=== PATIENT | female | born 1950 | race Caucasian/White ===

== ENCOUNTER 2017-07-29 16:31 | Outpatient (CLI) ==
[2015-11-26 18:08] VITALS: BMI 49.1
--- NOTE | 2017-07-29 16:54 | DI ---
EXAM: Chest two view, frontal and lateral views. HISTORY: Chronic obstructive pulmonary disease. COMPARISON: 11/26/2015. FINDINGS: The heart size is normal. Atherosclerotic calcifications noted in a tortuous thoracic ao rta There is no pulmonary vascular congestion. Probable right lower lobe calcified granuloma, guerrero e from prior study. Thin curvilinear opacities seen in both lung bases. Otherwise, the lungs are c lear. No pleural effusion or pneumothorax is seen. No acute osseous abnormality identified. IMPRESSION: Mild bibasilar subsegmental atelectasis or scarring.
== END 2017-07-29 16:32 | disposition home or self-care (01) ==
LOC: RAD 16:31
PROVIDERS: ATTEND Internal Medicine Pulmonary Disease
DX: J44.9 Chronic obstructive pulmonary disease, unspecified (principal)

== ENCOUNTER 2017-12-28 06:30 | Emergency (ER) ==
[2017-12-28] MEDS ORDERED: XOPENEX 1.25 MG NEB STA (06:31)
[2017-12-28] MEDS ORDERED: DUONEB NEB STA (06:31)
[2017-12-28] MEDS ORDERED: VANCOMYCIN 1,000 MG in SODIUM CHLORIDE 200 ML IV STA (06:32)
[2017-12-28] MEDS ORDERED: SODIUM CHLORIDE 1,000 ML IV STA (06:32)
[2017-12-28] MEDS ORDERED: ZOSYN 3.375 GM 3.375 GM in SODIUM CHLORIDE 50 ML IV STA (06:33)
[2017-12-28] MEDS ORDERED: TYLENOL PO STA (06:33)
[2017-12-28 06:37] VITALS: BMI 44.1
[2017-12-28] MEDS ORDERED: ZOFRAN 4 MG/2 ML IVP STA (06:37)
--- NOTE | 2017-12-28 06:39 | ED.PDOC ---
General Stated Complaint: luiz got fever, cough and coughing up blood Time Seen by Physician: 06:35 Mode of Arrival: Ambulance Information Source: Patient Exam Limitations: No limitations Nursing and Triage Documentation Reviewed and Agree: Yes Reviewed sepsis parameters & appropriate labs ordered?: Yes System Inflammatory Response Syndrome: Temp 101F or Greater, Pulse >90 BPM, Resp >20/Minute <LUL MASTERSON - Last Filed: 12/28/17 06:49> <MACEY IRAHETA - Last Filed: 12/28/17 07:42> ED Provider: Dr. MACEY IRAHETA Chief Complaint: Shortness of Air Primary Care Provider: LUL YOO Sepsis Protocol: For patient's 13 years and over: Temp is 96.8 and below OR 101 and greater Pulse >90 BPM Resp >20/minute Acutely Altered Mental Status Are patient's symptoms suggestive of a new infection, such as: -Pneumonia -Skin, Soft Tissue -Endocarditis -UTI -Bone, Joint Infection -Implantable Device -Acute Abdominal Infection -Wound Infection -Meningitis -Blood Stream Catheter Infection -Unknown Respiratory Complaint Exam - Shortness of Air Complaint/Exam Onset/Duration: 2 days Symptoms Are: Still present Timing: Intermittent Initial Severity: Mild Current Severity: Moderate Character: Reports: Dyspnea at rest Aggravating: Reports: URI Alleviating: Reports: Bronchodilators Associated Signs and Symptoms: Reports: Cough, Fever, Chills, Labored breathing. Denies: Wheezing, Chest pain with cough, Chest pain, Diaphoresis, Calf pain, Calf swelling, Edema, Rapid breathing, Decreased intake History of Healthcare-Acquired Pneumonia: No Home Oxygen Use: Yes Recent Stress Test: No Recent Echo/LV Function: No Respiratory Distress: Moderate Stridor Present: No Tracheal Deviation: No Subcutaneous Emphysema: No Accessory Muscle Use: Yes Diminished Breath Sounds: Yes Prolonged Expiratory Phase: No Unable to Speak Full Sentences: Yes Fatigue: No Leg Swelling: No Santa's Sign Present: No Grunting Respirations: No Kussmaul Respirations: No Differential Diagnoses: Pulmonary Edema, COPD Exacerbation, Pneumonia, URI Quality Indicator For Non-Traumatic Chest Pain/Syncope: EKG Performed <LUL MASTERSON - Last Filed: 12/28/17 06:49> Review of Systems - Review Of Systems Constitutional: Reports: Chills, Fever, Weakness, Loss of appetite Eyes: Reports: No symptoms Ears, Nose, Mouth, Throat: Reports: No symptoms Respiratory: Reports: Cough, Short of air Cardiac: Reports: No symptoms GI: Reports: No symptoms : Reports: No symptoms Musculoskeletal: Reports: No symptoms Skin: Reports: No symptoms Neurological: Reports: No symptoms Endocrine: Reports: No symptoms Hematologic/Lymphatic: Reports: No symptoms All Other Systems: Reviewed and Negative <ZELALEMLUL - Last Filed: 12/28/17 06:49> Past Medical History - Past Medical History Previously Healthy: No Endocrine: Reports: None Cardiovascular: Reports: None Respiratory: Reports: None Hematological: Reports: None Gastrointestinal: Reports: GERD Genitourinary: Reports: None Neuro/Psych: Reports: Anxiety, Depression Musculoskeletal: Reports: Arthritis, Back Pain, Joint Pain Cancer: Reports: None Last Menstrual Period: UNKNOWN Other Pertinent Past Medical History: Chronic back pain - Surgical History General Surgical History: Reports: Appendectomy, Cholecystectomy, Other (DNC) - Family History Family History: Reports: None - Social History Smoking Status: Former smoker Hx Substance Use: No Alcohol Screening: None Lives: With family - Immunizations Tetanus Shot up to Date: (UNKNOWN) <LUL MASTERSON - Last Filed: 12/28/17 06:49> Physical Exam - Physical Exam Appearance: Well-appearing, No pain distress, Well-nourished Ill-appearing: Moderate Eyes: KAYLYN, EOMI, Conjunctiva clear ENT: Ears normal, Nose normal, Oropharynx normal Neck: Supple Respiratory: Crackles, Rhonchi, Wheezes Cardiovascular: Tachycardia GI/: Soft Musculoskeletal: Normal strength Skin: Warm, Dry, Normal color Neurological: Sensation intact, Motor intact, Reflexes intact, Cranial nerves intact, Alert, Oriented Psychiatric: Affect appropriate, Mood appropriate <LUL MASTERSNO - Last Filed: 12/28/17 06:49> Procedures - IV/Art Line Insertion Location: right EJ BY SHAJI FIRST ATTEMPT NUMBER [id number] PLACED AND RN CHECKED FUNCTION Type of Line: External Jugular Number of Attempts: 1 Blood Return Positive: Yes Invasive Line/IV Flushes Without Difficulty: Yes <MACEY IRAHETA - Last Filed: 12/28/17 07:42> Re-Evaluation - Re-Evaluation Time of Re-Evaluation: 07:00 Status: Unchanged (intubated by anesthsia prior to my arrival hypotensive intubated ) Vital Signs Stable: No Appearance: Other (intubated) Lungs: Other (breath sounds diminshed markedlt left side right lung clear left lung ronchi) Skin: Warm and Dry Neuro: Other (intubated sedated and paralyzed) CV: RRR <MACEY IRAHETA - Last Filed: 12/28/17 07:42> Physician Notification - Case Discussed Physician Notified: dr iraheta Time of Notification: 07:00 <LUL MASTERSON - Last Filed: 12/28/17 06:49> Critical Care Note - Critical Care Note Total Time (mins): 30 <LUL MASTERSON - Last Filed: 12/28/17 06:49> Course - Course Hematology/Chemistry: 12/28/17 06:50 12/28/17 06:50 <MACEY IRAHETA - Last Filed: 12/28/17 07:42> - Course Orders, Labs, Meds: Lab Review 12/28/17 12/28/17 12/28/17 06:35 06:50 06:50 WBC 23.75 H RBC 4.80 Hgb 15.2 Hct 46.6 MCV 97.1 MCH 31.7 H MCHC 32.6 RDW Coeff of Romain 12.8 Plt Count 177 Immature Gran % (Auto) 1.1 Neut % (Auto) 89.1 Lymph % (Auto) 3.2 L [place] % (Auto) 6.4 Eos % (Auto) 0.0 Baso % (Auto) 0.2 Immature Gran # (Auto) 0.3 Neut # 21.2 H Lymph # 0.8 [place] # 1.5 Eos # 0.0 Baso # 0.1 Puncture Site R rad O2 Saturation 46.0 L ABG pH 7.350 ABG pCO2 59.7 H ABG pO2 27.0 L* ABG HCO3 33.0 H ABG Total CO2 35 H ABG Base Excess 7 H Wenceslao Test + O2 Delivery Device Oxygen Liter Flow FiO2 % 21.0 Sodium 139 Potassium 3.2 L Chloride 98 Carbon Dioxide 32 H Anion Gap 12.2 BUN 17 Creatinine 0.63 Estimated GFR (MDRD) 95.00 BUN/Creatinine Ratio 26.98 Glucose 111 Lactic Acid Calcium 9.1 Total Bilirubin 1.0 AST 19 ALT 15 Alkaline Phosphatase 80 Total Protein 6.4 Albumin 2.7 L Globulin 3.7 Albumin/Globulin Ratio 0.73 Procalcitonin Influenza A (Rapid) Influenza B (Rapid) 12/28/17 12/28/17 12/28/17 06:50 06:50 06:50 WBC RBC Hgb Hct MCV MCH MCHC RDW Coeff of Romain Plt Count Immature Gran % (Auto) Neut % (Auto) Lymph % (Auto) [place] % (Auto) Eos % (Auto) Baso % (Auto) Immature Gran # (Auto) Neut # Lymph # [place] # Eos # Baso # Puncture Site O2 Saturation ABG pH ABG pCO2 ABG pO2 ABG HCO3 ABG Total CO2 ABG Base Excess Wenceslao Test O2 Delivery Device Oxygen Liter Flow FiO2 % Sodium Potassium Chloride Carbon Dioxide Anion Gap BUN Creatinine Estimated GFR (MDRD) BUN/Creatinine Ratio Glucose Lactic Acid 7.9 Calcium Total Bilirubin AST ALT Alkaline Phosphatase Total Protein Albumin Globulin Albumin/Globulin Ratio Procalcitonin 1.35 Influenza A (Rapid) Positive by naat H Influenza B (Rapid) Negative by naat 12/28/17 06:55 WBC RBC Hgb Hct MCV MCH MCHC RDW Coeff of Romain Plt Count Immature Gran % (Auto) Neut % (Auto) Lymph % (Auto) [place] % (Auto) Eos % (Auto) Baso % (Auto) Immature Gran # (Auto) Neut # Lymph # [place] # Eos # Baso # Puncture Site L brach O2 Saturation 96.0 ABG pH 7.429 ABG pCO2 49.2 H ABG pO2 84.0 L ABG HCO3 32.6 H ABG Total CO2 34 H ABG Base Excess 8 H Wences[place]o Test + O2 Delivery Device Nrb Oxygen Liter Flow 15.00 FiO2 % 100.0 Sodium Potassium Chloride Carbon Dioxide Anion Gap BUN Creatinine Estimated GFR (MDRD) BUN/Creatinine Ratio Glucose Lactic Acid Calcium Total Bilirubin AST ALT Alkaline Phosphatase Total Protein Albumin Globulin Albumin/Globulin Ratio Procalcitonin Influenza A (Rapid) Influenza B (Rapid) Orders Category Date Time Status ABG DRAW REQUEST Stat CARDIO 12/28/17 06:30 Ordered ABG DRAW REQUEST Stat CARDIO 12/28/17 07:01 Ordered EKG-(ED ONLY) Stat CARDIO 12/28/17 06:30 Ordered NEBULIZER TREATMENT Stat CARDIO 12/28/17 06:32 Ordered TRANSFER TO OUTSIDE FACILITY .TO [facility] 12/28/17 06:50 Active ([place]) WRITE TRANSFER/SBAR NOTE [facility] 12/28/17 06:50 Completed DISCHARGE ASSESSMENT ONCE DISCHARGE 12/28/17 06:50 Active WRITE DISCHARGE NOTE ONCE DISCHARGE 12/28/17 06:50 Completed Nursing Admin [ED DIESEL TRUCK DRIVER APPLIED] .ONCE EMERGENCY 12/28/17 06:31 Active IV [ED IV/MEDIPORT/POWERPORT] .ONCE EMERGENCY 12/28/17 06:32 Active ABG Stat LAB 12/28/17 06:35 Completed ARTERIAL BLOOD GAS [ABG] Stat LAB 12/28/17 06:55 Completed BLOOD CULTURE (ED ONLY) Stat LAB 12/28/17 06:50 Received CBC W/ AUTO DIFF Stat LAB 12/28/17 06:50 Completed COMPREHENSIVE METABOLIC PANEL Stat LAB 12/28/17 06:50 Completed FLU A/B MOLECULAR Stat LAB 12/28/17 06:50 Completed LACTIC ACID Stat LAB 12/28/17 06:50 Completed MOLECULAR GROUP A STREP Stat LAB 12/28/17 06:50 Completed PROCALCITONIN Stat LAB 12/28/17 06:50 Completed 0.9 % Sodium Chloride [Saline Flush] MEDS 12/28/17 06:32 Active 1 syr IVF PRN PRN Acetaminophen [Tylenol] MEDS 12/28/17 06:33 Discontinued 650 mg PO ONCE STA Fentanyl Vial [Sublimaze] MEDS 12/28/17 06:55 Discontinued 100 mcg .ROUTE .STK-MED ONE Ipratropium/Albuterol Neb [Duoneb] MEDS 12/28/17 06:31 Discontinued 1 vial NEB ONCE STA Levalbuterol HCl [Xopenex 1.25 mg] MEDS 12/28/17 06:31 Discontinued 1 vial NEB ONCE STA Midazolam HCl Inj [Versed] MEDS 12/28/17 06:54 Discontinued 10 mg .ROUTE .STK-MED ONE Ondansetron HCl/Pf [Zofran 4 mg/2 ml] MEDS 12/28/17 06:37 Discontinued 4 mg IVP ONCE STA Phenylephrine Inj [Phenylephrine] MEDS 12/28/17 07:07 Discontinued 10,000 mcg .ROUTE .STK-MED ONE Piperacillin Sodium/Tazobactam [Zosyn 3.375 gm] 3.375 MEDS 12/28/17 06:33 Discontinued gm 0.9 % Sodium Chloride [Sodium Chloride] 50 ml IV ONCE Sodium Chloride 0.9% [Sodium Chloride] 1,000 ml MEDS 12/28/17 06:32 Active IV 100 mls/hr Sodium Chloride 0.9% [Sodium Chloride] 500 ml MEDS 12/28/17 07:36 Active IV 500 mls/hr Succinylcholine Chloride [Anectine] MEDS 12/28/17 06:54 Discontinued 20 mg .ROUTE .STK-MED ONE Vancomycin HCl [Vancomycin] 1,000 mg MEDS 12/28/17 06:32 Active 0.9 % Sodium Chloride [Sodium Chloride] 200 ml IV ONCE Vecuronium [place] [Norcuron] MEDS 12/28/17 06:57 Discontinued 10 mg .ROUTE .STK-MED ONE CHEST, 1V AP ONLY Stat RADS 12/28/17 07:23 Ordered Medications Generic Name Dose Route Start Last Admin Trade Name Freq PRN Reason Stop Dose Admin Sodium Chloride 1,000 mls @ 100 mls/hr 12/28/17 06:32 12/28/17 07:22 Sodium Chloride IV 12/28/17 16:31 100 mls/hr .Q10H STA Administration Vancomycin HCl 1,000 mg/ 200 mls @ 100 mls/hr 12/28/17 06:32 Sodium Chloride IV 12/28/17 08:31 ONCE STA Sodium Chloride 500 mls @ 500 mls/hr 12/28/17 07:36 Sodium Chloride IV 12/28/17 08:35 .Q1H STA Sodium Chloride 1 syr 12/28/17 06:32 Saline Flush IVF PRN PRN To flush IV Discontinued Medications Generic Name Dose Route Start Last Admin Trade Name Freq PRN Reason Stop Dose Admin Acetaminophen 650 mg 12/28/17 06:33 Tylenol PO 12/28/17 06:34 ONCE STA Albuterol/Ipratropium 1 vial 12/28/17 06:31 Duoneb NEB 12/28/17 06:32 ONCE STA Piperacillin Sod/Tazobactam 50 mls @ 50 mls/hr 12/28/17 06:33 12/28/17 07:22 Sod 3.375 gm/ Sodium Chloride IV 12/28/17 07:32 50 mls/hr ONCE STA Administration Levalbuterol HCl 1 vial 12/28/17 06:31 Xopenex 1.25 Mg NEB 12/28/17 06:32 ONCE STA Ondansetron HCl 4 mg 12/28/17 06:37 Zofran 4 Mg/2 Ml IVP 12/28/17 06:38 ONCE STA Vital Signs: Temp Pulse Resp BP Pulse Ox 12/28/17 07:20 18 12/28/17 06:31 102.2 F H 127 H 28 H 111/70 72 L Departure - Departure Time of Disposition: 06:49 Pt referred to PMD for follow-up: Yes IPMP verified?: No Transfer Form Completed: Yes Disposition Discussed With: Patient, Family <LUL MASTERSON - Last Filed: 12/28/17 06:49> - Departure Pt referred to PMD for follow-up: Yes IPMP verified?: No Transfer Form Completed: Yes Disposition Discussed With: Patient, Family <ERINLUPEMACEY - Last Filed: 12/28/17 07:42> - Departure Disposition: TSF SHORT-TRM HOSP Discharge Problem: Acute respiratory failure Qualifiers: Respiratory failure complication: hypoxia Qualified Code(s): J96.01 - Acute respiratory failure with hypoxia Instructions: Endotracheal Tube (GEN) Condition: Poor Allergies/Adverse Reactions: Allergies ibuprofen [From Advil] Adverse Reaction (Verified 11/26/15 18:19) oxycodone HCl [From OxyContin] Adverse Reaction (Verified 11/26/15 18:19) Home Medications: Ambulatory Orders Albuterol Sulfate [Proair Hfa] 2 puff IH Q6H PRN 11/08/13 Ascorbate Calcium [Vitamin C] 500 mg PO DAILY 11/08/13 Aspirin [Aspirin EC] 81 mg PO DAILYWM 11/08/13 Atorvastatin Calcium [Lipitor] 10 mg PO DAILY 11/08/13 Bupropion HCl 75 mg PO BID 11/08/13 Cyanocobalamin (Vitamin B-12) [Vitamin B-12] 500 mcg PO DAILY 11/08/13 Diltiazem HCl 60 mg PO TID 11/08/13 Esomeprazole Magnesium [Nexium] 40 mg PO DAILY 11/08/13 Fluticasone/Salmeterol 250/50 [Advair 250-50 Diskus] 1 puff INH BID 11/08/13 Guaifenesin [Mucinex] 600 mg PO BID 11/08/13 Vitamin E 400 unit PO DAILY 11/08/13 Naproxen Sodium [Aleve] 220 mg PO Q12H PRN 05/19/15
[2017-12-28] MEDS ORDERED: VERSED IVP STA (06:50)
[2017-12-28] MEDS ORDERED: SUBLIMAZE IVP STA (06:50)
[2017-12-28] MEDS ORDERED: PHENYLEPHRINE IVP STA (06:50)
[2017-12-28] MEDS ORDERED: ANECTINE ONE (06:54)
[2017-12-28] MEDS ORDERED: VERSED ONE (06:54)
[2017-12-28] MEDS ORDERED: SUBLIMAZE ONE (06:55)
[2017-12-28] MEDS ORDERED: NORCURON ONE (06:57)
[2017-12-28] MEDS ORDERED: PHENYLEPHRINE ONE (07:07)
--- NOTE | 2017-12-28 07:20 | ED.PDOC ---
Procedures - Intubation Medications: Yes: Norcuron, Succinylcholine, Versed, Propofol Type of Tube Used: Endotracheal Cricoid Pressure Used: No Tube Alberto Used: Yes Position of Tube at Lip: 22 Number of Attempts: 1 Suction Used: No Glidescope Used: No CO2 Detector Used: Yes (positive) Lung Sounds Equal Bilaterally: Yes Intubation Complications: Present: No complications Tube Inserted By: moses florian CRNA Tube Placement Verified by X-ray: Yes Conscious Sedation - Pre-op Assessment Weight: 265 lb Surgical History: Gallbladder. Appendix. DNC - Medical History Past Medical History: COPD, GERD, Depression, Anxiety Other History: CHRONIC BACK - Physical Exam Heart Rate/Rhythm: Tachycardia
[2017-12-28] MEDS ORDERED: SODIUM CHLORIDE 500 ML IV STA (07:36)
--- NOTE | 2017-12-28 07:40 | DI ---
EXAM: Single frontal view of the chest HISTORY: Acute respiratory failure. COMPARISON: Chest x-ray 07/29/2017 and multiple priors FINDINGS: There is an ET tube with the tip 7.5 cm above the martin. There is consolidation and groun d-glass in the left upper lobe. There is no pneumothorax or pleural effusion. The right lung is wilmar ar. The osseous structures are unremarkable. IMPRESSION: 1. ET tube with tip 7.5 cm above the martin. 2. Left upper lobe ground-glass and consolidation consistent with pneumonia.
[2017-12-28 07:50] VITALS: BP 78/0
[2017-12-28 07:53] VITALS: TEMP 102.5
[2017-12-28] MEDS ORDERED: EPINEPHRINE 1:10,000 SYRINGE IV STA (07:53)
[2017-12-28] MEDS ORDERED: NORCURON IVP STA (07:56)
== END 2017-12-28 08:15 | disposition short-term general hospital (02) ==
LOC: ED 06:30
DX: J96.01 Acute respiratory failure with hypoxia (principal); R50.9 Fever, unspecified; Z79.899 Other long term (current) drug therapy; R06.02 Shortness of breath; Z99.81 Dependence on supplemental oxygen; R04.2 Hemoptysis; J44.9 Chronic obstructive pulmonary disease, unspecified; R00.0 Tachycardia, unspecified; J11.1 Influenza due to unidentified influenza virus with other respiratory manifestations; J18.9 Pneumonia, unspecified organism
CPT/HCPCS: 36415; 80053; 82803; 83605; 84145; 85025; 87040; 87502; 87651; 93005; 93010; 94002; 96365; 96375; 99291

== ENCOUNTER 2018-03-29 11:31 | Emergency (ER) ==
[2018-03-29 11:41] VITALS: BP 104/75; TEMP 98; BMI 45.9
[2018-03-29] MEDS ORDERED: SOLU-MEDROL 125 MG IVP STA (11:57)
[2018-03-29] MEDS ORDERED: DUONEB NEB STA ×2 (11:57→12:21)
--- NOTE | 2018-03-29 15:21 | ED.PDOC ---
General ED Provider: Dr. MACEY GIRARD Chief Complaint: Shortness of Air Stated Complaint: shortness of breath Time Seen by Physician: 11:33 (shortness of breath) Mode of Arrival: Walk-In Information Source: Patient Exam Limitations: No limitations (pt is on home o2 at nights ) Primary Care Provider: LUL YOO Nursing and Triage Documentation Reviewed and Agree: Yes Reviewed sepsis parameters & appropriate labs ordered?: Yes System Inflammatory Response Syndrome: Not Applicable Sepsis Protocol: For patient's 13 years and over: Temp is 96.8 and below OR 101 and greater Pulse >90 BPM Resp >20/minute Acutely Altered Mental Status Are patient's symptoms suggestive of a new infection, such as: -Pneumonia -Skin, Soft Tissue -Endocarditis -UTI -Bone, Joint Infection -Implantable Device -Acute Abdominal Infection -Wound Infection -Meningitis -Blood Stream Catheter Infection -Unknown System Inflammatory Response Syndrome: Not Applicable Respiratory Complaint Exam - Shortness of Air Complaint/Exam Onset/Duration: 1 day Symptoms Are: Still present Timing: Constant Initial Severity: Mild Current Severity: Mild Character: Reports: Dyspnea at rest, Dyspnea on exertion, Orthopnea Aggravating: Reports: Movement, Deep breaths, Recumbent position Alleviating: Reports: Bronchodilators, Upright position, Spontaneous resolution Associated Signs and Symptoms: Reports: Cough, Nasal congestion. Denies: Wheezing, Chest pain with cough, Chest pain, Fever, Chills, Diaphoresis, Dizziness, Calf pain, Calf swelling, Edema, Rapid breathing, Labored breathing, Decreased intake History of Healthcare-Acquired Pneumonia: Admit w/in last 30 days Pulmonary Embolism Risk Factors: Reports: Bedrest Cardiac Risk Factors: Reports: None Pseudomonas Risk Factors: Reports: None Tuberculosis Risk Factors: Reports: None Home Oxygen Use: No Recent Stress Test: No Recent Echo/LV Function: No Respiratory Distress: None Stridor Present: No Tracheal Deviation: No Subcutaneous Emphysema: No Accessory Muscle Use: No Retractions: Not Present Diminished Breath Sounds: Yes Prolonged Expiratory Phase: Yes Unable to Speak Full Sentences: No Fatigue: No Leg Swelling: No Santa's Sign Present: No Grunting Respirations: No Kussmaul Respirations: No Differential Diagnoses: Asthma, CHF, Pulmonary Edema, Pneumonia, Pulmonary Embolism Quality Indicators for AMI: EKG in 10min. Quality Indicators for Cardiac Chest Pain: EKG in 10min. Quality Indicator For Non-Traumatic Chest Pain/Syncope: EKG Performed Related Surgical History: Reports: None Review of Systems - Review Of Systems Constitutional: Reports: Malaise Eyes: Reports: No symptoms Ears, Nose, Mouth, Throat: Reports: No symptoms Respiratory: Reports: Cough, Short of air Cardiac: Reports: No symptoms GI: Reports: No symptoms : Reports: No symptoms Musculoskeletal: Reports: No symptoms Skin: Reports: No symptoms Neurological: Reports: No symptoms Endocrine: Reports: No symptoms Hematologic/Lymphatic: Reports: No symptoms All Other Systems: Reviewed and Negative Past Medical History - Past Medical History Previously Healthy: No Endocrine: Reports: None Cardiovascular: Reports: None Respiratory: Reports: None Hematological: Reports: None Gastrointestinal: Reports: GERD Genitourinary: Reports: None Neuro/Psych: Reports: Anxiety, Depression Musculoskeletal: Reports: Arthritis, Back Pain, Joint Pain Cancer: Reports: None Last Menstrual Period: n/a Other Pertinent Past Medical History: Chronic back pain - Surgical History General Surgical History: Reports: Appendectomy, Cholecystectomy, Other (DNC) - Family History Family History: Reports: None - Social History Smoking Status: Former smoker Hx Substance Use: No Alcohol Screening: None - Immunizations Tetanus Shot up to Date: Yes Physical Exam - Physical Exam Appearance: Well-appearing, No pain distress, Well-nourished Eyes: KAYLYN, EOMI, Conjunctiva clear ENT: Ears normal, Nose normal, Oropharynx normal Respiratory: Breath sounds diminished, Rhonchi Cardiovascular: RRR, Pulses normal, No rub, No murmur GI/: Soft, Nontender, No masses, Bowel sounds normal, No Organomegaly Musculoskeletal: Normal strength, ROM intact, No edema, No calf tenderness Skin: Warm, Dry, Normal color Neurological: Sensation intact, Motor intact, Reflexes intact, Cranial nerves intact, Alert, Oriented Psychiatric: Affect appropriate, Mood appropriate Critical Care Note - Critical Care Note Total Time (mins): 0 Course - Course Hematology/Chemistry: 03/29/18 14:05 03/29/18 14:05 Orders, Labs, Meds: Lab Review 03/29/18 03/29/18 03/29/18 12:05 13:00 14:05 WBC 11.03 H RBC 3.37 L Hgb 10.0 L Hct 33.6 L MCV 99.7 H MCH 29.7 MCHC 29.8 L RDW Coeff of Romain 13.5 Plt Count 253 Immature Gran % (Auto) 0.5 Neut % (Auto) 79.5 Lymph % (Auto) 9.0 L [place] % (Auto) 9.2 Eos % (Auto) 1.3 Baso % (Auto) 0.5 Immature Gran # (Auto) 0.1 Neut # (Auto) 8.8 H Lymph # (Auto) 1.0 [place] # (Auto) 1.0 Eos # (Auto) 0.1 Baso # (Auto) 0.1 Puncture Site R rad O2 Saturation 81.0 L ABG pH 7.369 ABG pCO2 64.9 H ABG pO2 48.0 L* ABG HCO3 37.5 H ABG Total CO2 39 H ABG Base Excess 12 H Wenceslao Test + O2 Delivery Device Nc Oxygen Liter Flow 2.00 Sodium Potassium Chloride Carbon Dioxide Anion Gap BUN Creatinine Estimated GFR (MDRD) BUN/Creatinine Ratio Glucose Calcium Total Bilirubin AST ALT Alkaline Phosphatase Total Creatine Kinase Troponin I B-Natriuretic Peptide 84 Total Protein Albumin Globulin Albumin/Globulin Ratio 03/29/18 03/29/18 14:05 14:05 WBC RBC Hgb Hct MCV MCH MCHC RDW Coeff of Romain Plt Count Immature Gran % (Auto) Neut % (Auto) Lymph % (Auto) [place] % (Auto) Eos % (Auto) Baso % (Auto) Immature Gran # (Auto) Neut # (Auto) Lymph # (Auto) [place] # (Auto) Eos # (Auto) Baso # (Auto) Puncture Site O2 Saturation ABG pH ABG pCO2 ABG pO2 ABG HCO3 ABG Total CO2 ABG Base Excess Wenceslao Test O2 Delivery Device Oxygen Liter Flow Sodium 144 Potassium 4.8 Chloride 103 Carbon Dioxide 32 H Anion Gap 13.8 BUN 13 Creatinine 0.69 Estimated GFR (MDRD) 85.00 BUN/Creatinine Ratio 18.84 Glucose 101 Calcium 9.3 Total Bilirubin 0.4 AST 11 L ALT 9 L Alkaline Phosphatase 81 Total Creatine Kinase 49 Troponin I < 0.0100 B-Natriuretic Peptide Total Protein 6.2 Albumin 3.0 L Globulin 3.2 Albumin/Globulin Ratio 0.94 Orders Category Date Time Status ABG DRAW REQUEST Stat CARDIO 03/29/18 12:21 Completed NEBULIZER TREATMENT Stat CARDIO 03/29/18 11:57 Completed NPO REMINDER: IMAGING ONCE CARE 03/29/18 13:52 Completed ABG Stat LAB 03/29/18 13:00 Completed B-TYPE NATRIURETIC PEPTIDE Stat LAB 03/29/18 12:05 Completed CBC W/ AUTO DIFF Stat LAB 03/29/18 14:05 Completed COMPREHENSIVE METABOLIC PANEL Stat LAB 03/29/18 14:05 Completed CREATINE KINASE Stat LAB 03/29/18 14:05 Completed TROPONIN I Stat LAB 03/29/18 14:05 Completed Ipratropium/Albuterol Neb [Duoneb] MEDS 03/29/18 11:57 Discontinued 1 vial NEB ONCE STA Ipratropium/Albuterol Neb [Duoneb] MEDS 03/29/18 12:21 Discontinued 1 vial NEB ONCE STA Methylprednisolone Sod Succ/Pf [Solu-Medrol 125 mg] MEDS 03/29/18 11:57 Discontinued 40 [address] IVP ONCE STA CT CHEST PE PROTOCOL Stat RADS 03/29/18 13:51 Ordered Medications Discontinued Medications Generic Name Dose Route Start Last Admin Trade Name Freq PRN Reason Stop Dose Admin Albuterol/Ipratropium 1 vial 03/29/18 11:57 03/29/18 12:05 Duoneb NEB 03/29/18 11:58 1 vial ONCE STA Administration Albuterol/Ipratropium 1 vial 03/29/18 12:21 03/29/18 13:49 Duoneb NEB 03/29/18 12:22 1 vial ONCE STA Administration Methylprednisolone Sodium Succinate 40 mg 03/29/18 11:57 03/29/18 13:47 Solu-Medrol 125 Mg IVP 03/29/18 11:58 40 mg ONCE STA Administration Vital Signs: Temp Pulse Resp BP Pulse Ox 03/29/18 11:31 98.0 F 87 22 104/75 89 L Departure - Departure Time of Disposition: 15:30 Disposition: HOME SELF-CARE Discharge Problem: COPD (chronic obstructive pulmonary disease) Qualifiers: COPD type: unspecified COPD Qualified Code(s): J44.9 - Chronic obstructive pulmonary disease, unspecified Dyspnea Qualifiers: Dyspnea type: unspecified Qualified Code(s): R06.00 - Dyspnea, unspecified Condition: Good Pt referred to PMD for follow-up: Yes (transfer ) IPMP verified?: No Allergies/Adverse Reactions: Allergies ibuprofen [From Advil] Adverse Reaction (Verified 11/26/15 18:19) oxycodone HCl [From OxyContin] Adverse Reaction (Verified 11/26/15 18:19) Home Medications: Ambulatory Orders Albuterol Sulfate [Proair Hfa] 2 puff IH Q6H PRN 11/08/13 Aspirin [Aspirin EC] 81 mg PO DAILYWM 11/08/13 Atorvastatin Calcium [Lipitor] 10 mg PO DAILY 11/08/13 Bupropion HCl 75 mg PO BID 11/08/13 Diltiazem HCl 60 mg PO TID 11/08/13 Guaifenesin [Mucinex] 600 mg PO BID 11/08/13 Naproxen Sodium [Aleve] 220 mg PO Q12H PRN 05/19/15 Alprazolam 0.5 mg PO Q8HR PRN 03/29/18 Budesonide/Formoterol Fumarate [Symbicort 160-4.5 Mcg Inhaler] 2 puff IH BID 06/09 Bumetanide 1 mg PO DAILY 03/29/18 Buspirone HCl 15 mg PO BID 03/29/18 Ergocalciferol (Vitamin D2) [Vitamin D2] 50,000 unit PO WEEKLY 03/29/18 Fluticasone/Vilanterol [Breo Ellipta Inhaler] 1 each IH DAILY 03/29/18 Ipratropium/Albuterol Neb [Duoneb] 1 vial NEB RTQ6H 03/29/18 Potassium Chloride [K-Dur] 20 meq PO DAILY 03/29/18 Trazodone HCl 50 mg PO BEDTIME 03/29/18
--- NOTE | 2018-03-29 15:50 | DI ---
EXAM: CHEST FRONTAL VIEW HISTORY: Shortness of breath. COMPARISON: 12/28/2017 FINDINGS: Heart size remains within normal limits. No acute infiltrates are seen. No vascular conge stion. There is no consolidation, visible pleural fluid or pneumothorax. Bones reveal no acute fract ure. IMPRESSION: No acute cardiopulmonary process. If symptoms persist, consider follow up with full in spiration, standing two-view chest radiography using PA and lateral technique.
== END 2018-03-29 16:50 | disposition short-term general hospital (02) ==
LOC: ED 11:31
DX: J44.9 Chronic obstructive pulmonary disease, unspecified (principal); R06.02 Shortness of breath; Z99.81 Dependence on supplemental oxygen; Z79.899 Other long term (current) drug therapy; R40.2411 Glasgow coma scale score 13-15, in the field [EMT or ambulance]
CPT/HCPCS: 36415; 80053; 82550; 82803; 83880; 84484; 85025; 93005; 93010; 94640; 96374; 99285

== ENCOUNTER 2020-10-12 08:37 | Inpatient (IN) ==
[2020-10-12] MEDS ORDERED: DECADRON IVP STA (09:06)
[2020-10-12] MEDS ORDERED: VENTOLIN HFA (PER PUFF-WITH SPACER) IH STA (09:06)
[2020-10-12] MEDS ORDERED: SODIUM CHLORIDE 1,000 ML IV STA (09:26)
--- NOTE | 2020-10-12 09:26 | ED.PDOC ---
General ED Provider: Dr. BURKE SANTIAGO MD Chief Complaint: Shortness of Air Stated Complaint: short of breath Time Seen by Physician: 09:04 Mode of Arrival: Wheelchair Information Source: Patient Primary Care Provider: LUL YOO Nursing and Triage Documentation Reviewed and Agree: Yes Does patient meet sepsis criteria?: Yes If yes, has appropriate treatment been initiated?: Yes System Inflammatory Response Syndrome: Pulse >90 BPM and Resp >20/Minute Sepsis Protocol: For patient's 13 years and over: Temp is 96.8 and below OR 101 and greater Pulse >90 BPM Resp >20/minute Acutely Altered Mental Status Are patient's symptoms suggestive of a new infection, such as: -Pneumonia -Skin, Soft Tissue -Endocarditis -UTI -Bone, Joint Infection -Implantable Device -Acute Abdominal Infection -Wound Infection -Meningitis -Blood Stream Catheter Infection -Unknown Review of Systems Review Of Systems Constitutional: Reports Weakness Eyes: Reports No symptoms Ears, Nose, Mouth, Throat: Reports No symptoms Respiratory: Reports Cough and Short of air Cardiac: Reports Chest pain GI: Reports No symptoms : Reports No symptoms Musculoskeletal: Reports No symptoms Skin: Reports No symptoms Neurological: Reports Weakness Endocrine: Reports No symptoms Hematologic/Lymphatic: Reports No symptoms All Other Systems: Reviewed and Negative [facility] Medical History Chronic obstructive pulmonary disease Elevated cholesterol Gastroesophageal reflux disease Heart disease History of seasonal allergies Family History Mother Elevated cholesterol Seasonal allergies Cardiac disease Anesthesia complication Cerebrovascular accident Hypertension FATHER Seasonal allergies BROTHER Seasonal allergies MATERNAL GRANDMOTHER Seasonal allergies MATERNAL GRANDFATHER Seasonal allergies PATERNAL GRANDMOTHER Seasonal allergies PATERNAL GRANDFATHER Seasonal allergies Social History Smoking and tobacco status: Former smoker Surgical History Permacath Status post appendectomy Status post cholecystectomy tracheotomy Female Reproductive History Menstrual Hx Hysterectomy: No Hx Tubal Ligation: No Physical Exam Physical Exam Appearance: Reports Ill-appearing Ill-appearing: Mild Pain Distress: None Eyes: Reports KAYLYN, EOMI and Conjunctiva clear ENT: Reports Ears normal, Nose normal and Oropharynx normal Neck: Supple Respiratory: Reports Airway patent, Breath sounds diminished (left posterior lung velazquez) and Rhonchi Cardiovascular: Reports RRR and Tachycardia GI/: Reports Soft and Nontender Musculoskeletal: Reports Normal strength and ROM intact Skin: Reports Warm and Dry Neurological: Reports Sensation intact, Motor intact, Reflexes intact, Cranial nerves intact, Alert and Oriented Psychiatric: Reports Affect appropriate Interpretation Radiology Interpretation Radiology Interpretation By: Radiologist Radiology Results: Positive (right basilar pneumonia) Exam Interpreted: CXR Re-Evaluation Re-Evaluation Time of Re-Evaluation: 10:33 Critical Care Note Critical Care Note Total Critical Care Time (mins): 125 Course Course Hematology/Chemistry: 10/12/20 09:45 10/12/20 09:45 Orders, Labs, Meds: Lab Review 10/12/20 10/12/20 10/12/20 09:15 09:45 09:45 WBC 5.48 RBC 4.29 Hgb 13.0 Hct 41.5 MCV 96.7 MCH 30.3 MCHC 31.3 L RDW Coeff of Romain 13.2 Plt Count 172 Immature Gran % (Auto) 0.5 Neut % (Auto) 82.7 H Lymph % (Auto) 6.9 L [place] % (Auto) 9.5 Eos % (Auto) 0.0 Baso % (Auto) 0.4 Neut # (Auto) 4.5 Lymph # (Auto) 0.4 L [place] # (Auto) 0.5 Eos # (Auto) 0.0 Baso # (Auto) 0.0 Immature Gran # (Auto) 0.0 PT INR Puncture Site R rad O2 Saturation 90.4 L ABG pH 7.41 ABG pCO2 64.0 H ABG pO2 59.0 L* ABG HCO3 40.8 H ABG Total CO2 42.6 H ABG Base Excess 16.0 H Wenceslao Test + O2 Delivery Device Nc Oxygen Liter Flow 3.00 Sodium Potassium Chloride Carbon Dioxide Anion Gap BUN Creatinine Estimated GFR (MDRD) BUN/Creatinine Ratio Glucose Lactic Acid Calcium Total Bilirubin AST ALT Alkaline Phosphatase Troponin I NT-Pro-B Natriuret Pep Total Protein Albumin Globulin Albumin/Globulin Ratio Adenovirus (PCR) B. pertussis DNA (PCR) B.parapertussis DNA PCR C. pneumoniae DNA (PCR) Coronavirus OC43 (PCR) Coronavirus HKU1 (PCR) Coronavirus 229E (PCR) Coronavirus NL63 (PCR) Human Metapneumovir PCR Influenza Type A (PCR) Influenza B (RT-PCR) M. pneumoniae (PCR) Parainfluenza 1 (PCR) Parainfluenza 2 (PCR) Parainfluenza 3 (PCR) Parainfluenza 4 (PCR) RSV (PCR) Entero/Rhino (PCR) SARS-CoV-2 (PCR) SARS-CoV-2 RNA (RT-PCR) Cancelled 10/12/20 10/12/20 10/12/20 09:45 09:45 09:45 WBC RBC Hgb Hct MCV MCH MCHC RDW Coeff of Romain Plt Count Immature Gran % (Auto) Neut % (Auto) Lymph % (Auto) [place] % (Auto) Eos % (Auto) Baso % (Auto) Neut # (Auto) Lymph # (Auto) [place] # (Auto) Eos # (Auto) Baso # (Auto) Immature Gran # (Auto) PT 9.3 INR 0.95 Puncture Site O2 Saturation ABG pH ABG pCO2 ABG pO2 ABG HCO3 ABG Total CO2 ABG Base Excess Wenceslao Test O2 Delivery Device Oxygen Liter Flow Sodium 138.4 Potassium 4.12 Chloride 95.2 L Carbon Dioxide 38.1 H Anion Gap 9.22 BUN 22.0 H Creatinine 0.65 Estimated GFR (MDRD) 91.00 BUN/Creatinine Ratio 33.84 Glucose 127.9 H Lactic Acid 0.62 L Calcium 8.52 Total Bilirubin 0.64 AST 24.8 ALT 13.7 Alkaline Phosphatase 88.1 Troponin I < 0.012 NT-Pro-B Natriuret Pep 71.000 Total Protein 6.58 Albumin 3.58 Globulin 3.00 Albumin/Globulin Ratio 1.19 Adenovirus (PCR) B. pertussis DNA (PCR) B.parapertussis DNA PCR C. pneumoniae DNA (PCR) Coronavirus OC43 (PCR) Coronavirus HKU1 (PCR) Coronavirus 229E (PCR) Coronavirus NL63 (PCR) Human Metapneumovir PCR Influenza Type A (PCR) Influenza B (RT-PCR) M. pneumoniae (PCR) Parainfluenza 1 (PCR) Parainfluenza 2 (PCR) Parainfluenza 3 (PCR) Parainfluenza 4 (PCR) RSV (PCR) Entero/Rhino (PCR) SARS-CoV-2 (PCR) SARS-CoV-2 RNA (RT-PCR) 10/12/20 12:00 WBC RBC Hgb Hct MCV MCH MCHC RDW Coeff of Romain Plt Count Immature Gran % (Auto) Neut % (Auto) Lymph % (Auto) [place] % (Auto) Eos % (Auto) Baso % (Auto) Neut # (Auto) Lymph # (Auto) [place] # (Auto) Eos # (Auto) Baso # (Auto) Immature Gran # (Auto) PT INR Puncture Site O2 Saturation ABG pH ABG pCO2 ABG pO2 ABG HCO3 ABG Total CO2 ABG Base Excess Wenceslao Test O2 Delivery Device Oxygen Liter Flow Sodium Potassium Chloride Carbon Dioxide Anion Gap BUN Creatinine Estimated GFR (MDRD) BUN/Creatinine Ratio Glucose Lactic Acid Calcium Total Bilirubin AST ALT Alkaline Phosphatase Troponin I NT-Pro-B Natriuret Pep Total Protein Albumin Globulin Albumin/Globulin Ratio Adenovirus (PCR) Not detected B. pertussis DNA (PCR) Not detected B.parapertussis DNA PCR Not detected C. pneumoniae DNA (PCR) Not detected Coronavirus OC43 (PCR) Not detected Coronavirus HKU1 (PCR) Not detected Coronavirus 229E (PCR) Not detected Coronavirus NL63 (PCR) Not detected Human Metapneumovir PCR Not detected Influenza Type A (PCR) Not detected Influenza B (RT-PCR) Not detected M. pneumoniae (PCR) Not detected Parainfluenza 1 (PCR) Not detected Parainfluenza 2 (PCR) Not detected Parainfluenza 3 (PCR) Not detected Parainfluenza 4 (PCR) Not detected RSV (PCR) Not detected Entero/Rhino (PCR) Not detected SARS-CoV-2 (PCR) Detected H SARS-CoV-2 RNA (RT-PCR) Orders Category Date Time Status ABG DRAW REQUEST Stat CARDIO 10/12/20 09:22 Completed EKG-(ED ONLY) Stat CARDIO 10/12/20 09:40 Completed METERED DOSE INHALATION Routine CARDIO 10/12/20 09:08 Completed OXYGEN Routine CARDIO 10/12/20 14:10 Completed ACTIVITY .Complete BR CARE 10/12/20 14:07 Completed BLOOD GLUCOSE MONITORING ACCUCHECK Q6H CARE 10/12/20 14:07 Completed CATHETER INSERTION AND CARE Q8HR CARE 10/12/20 14:07 Completed INTAKE & OUTPUT Q8HR CARE 10/12/20 14:08 Completed ISOLATION ONCE CARE 10/12/20 14:11 Completed REMINDER: Ask MD to d/c latrice DAILY CARE 10/12/20 14:08 Completed VITAL SIGNS Q2HR CARE 10/12/20 14:08 Completed NOTHING BY MOUTH DIETARY 10/12/20 Dinner Completed ED ELECTRIC TAPE SLITTER APPLIED .ONCE EMERGENCY 10/12/20 09:06 Completed ED IV/MEDIPORT/POWERPORT .ONCE EMERGENCY 10/12/20 09:07 Completed ABG Stat LAB 10/12/20 09:15 Completed BLOOD CULTURE (ED ONLY) Stat LAB 10/12/20 09:50 Completed CBC W/ AUTO DIFF Stat LAB 10/12/20 09:45 Completed COMPREHENSIVE METABOLIC PANEL Stat LAB 10/12/20 09:45 Completed LACTIC ACID Stat LAB 10/12/20 09:45 Completed NT-PROBNP Stat LAB 10/12/20 09:45 Completed RESPIRATORY PANEL 2.1 (PCR) Stat LAB 10/12/20 12:00 Completed TROPONIN I Stat LAB 10/12/20 09:45 Completed 0.9 % Sodium Chloride [Saline Flush] MEDS 10/12/20 09:06 Discontinued 1 syr IVF PRN PRN Albuterol Inhaler(with Spacer) [Ventolin Hfa (Per Puff- MEDS 10/12/20 09:06 Discontinued with Spacer)] 2 puff IH ONCE STA Azithromycin Inj [Zithromax] 500 mg MEDS 10/12/20 10:27 Discontinued 0.9 % Sodium Chloride [Sodium Chloride] 250 ml IV ONCE Ceftriaxone/D5w 1 gm Premix [Rocephin 1 gm/50 ml D5w] MEDS 10/12/20 10:29 Discontinued 1 gm in 50 ml IV ONCE Dexamethasone Sod Phosphate [Decadron] MEDS 10/12/20 09:06 Discontinued 4 mg IVP ONCE STA Potassium Chloride/D5-0.9%NaCl [D5%-Ns-KCl 20 Meq/l IV MEDS 10/12/20 14:30 Discontinued Shelby] 1,000 ml IV 100 mls/hr Remdesivir Solution [Remdesivir] 200 mg MEDS 10/12/20 14:17 Discontinued 0.9 % Sodium Chloride [Sodium Chloride] 210 ml IV ONCE Sodium Chloride 0.9% [Sodium Chloride] 1,000 ml MEDS 10/12/20 09:26 Discontinued IV BOLUS RESUSCITATION STATUS Routine OTHERS 10/12/20 14:07 Completed CHEST, 1V AP ONLY Stat RADS 10/12/20 09:06 Completed Medications Discontinued Medications Generic Name Dose Route Start Last Admin Trade Name Freq PRN Reason Stop Dose Admin Albuterol Sulfate 2 puff 10/12/20 09:06 10/12/20 09:50 Albuterol Sulfate (Ventolin Hfa) 18 Gm 1 Puff With Spacer IH 10/12/20 09:07 2 puff ONCE STA Administration Dexamethasone Sodium Phosphate 4 mg 10/12/20 09:06 10/12/20 09:38 Dexamethasone Sod Phos 4 Mg/Ml Inj IVP 10/12/20 09:07 4 mg ONCE STA Administration Fentanyl Citrate 100 mcg 10/12/20 15:55 10/12/20 15:55 Fentanyl 100 Mcg/2 Ml Vial IVP 10/12/20 15:56 100 mcg ONCE STA Administration Sodium Chloride 1,000 mls @ 1,000 mls/hr 10/12/20 09:26 10/12/20 09:38 Sodium Chloride IV 10/12/20 10:25 1,000 mls/hr BOLUS STA Administration Azithromycin 500 mg/ Sodium 250 mls @ 125 mls/hr 10/12/20 10:27 10/12/20 11:27 Chloride IV 10/12/20 12:26 125 mls/hr ONCE STA Administration CEFTRIAXONE/D5W 1 GM PREMIX 1 gm in 50 mls @ 75 mls/hr 10/12/20 10:29 10/12/20 10:43 Rocephin 1 Gm/50 Ml D5w IV 10/12/20 11:08 75 mls/hr ONCE STA Administration Potassium Chloride/Dextrose/Sod Cl 1,000 mls @ 100 mls/hr 10/12/20 14:30 10/12/20 15:43 D5%-Ns-Kcl 20 Meq/L Iv Shelby IV 100 mls/hr .Q10H NNAMDI Administration REMDESIVIR POWDER 200 mg/ 250 mls @ 125 mls/hr 10/12/20 14:17 10/12/20 16:19 Sodium Chloride IV 10/12/20 16:16 125 mls/hr ONCE STA Administration REMDESIVIR POWDER 100 mg/ 100 mls @ 100 mls/hr 10/13/20 09:00 Sodium Chloride IV DAILY NNAMDI Propofol 1,000 mg in 100 mls @ 3.84 mls/hr 10/12/20 16:00 10/12/20 18:13 Diprivan 1,000 Mg/100 Ml Vial IV 5 mcg/kg/min TITRATE NNAMDI 3.8 mls/hr Administration Protocol 5 MCG/KG/MIN Midazolam HCl 5 mg 10/12/20 15:55 10/12/20 15:55 Midazolam Hcl Inj 5 Mg/Ml Vial IVP 10/12/20 15:56 5 mg ONCE STA Administration Propofol 100 mg 10/12/20 15:56 10/12/20 19:23 Propofol Inj 200 Mg/20 Ml Vial IVP 10/12/20 15:57 Not Given ONCE STA Rocuronium [place] 40 mg 10/12/20 16:10 10/12/20 16:10 Rocuronium [place] 10 Mg/1 Ml Mdv IVP 10/12/20 16:11 40 mg ONCE STA Administration Scopolamine HBr 1 patch 10/12/20 17:23 10/12/20 16:40 Scopolamine Hydrobromide 1.5 Mg Patch.Td72 TD 10/12/20 17:24 1 patch ONCE STA Administration Sodium Chloride 1 syr 10/12/20 09:06 10/12/20 09:38 0.9% Sodium Chloride 10 Ml Disp.Syrin IVF 1 syr PRN PRN Administration To flush IV Succinylcholine Chloride 125 mg 10/12/20 15:56 10/12/20 15:56 Succinylcholine Chloride 200 Mg/10 Ml Mdv IVP 10/12/20 15:57 125 mg ONCE STA Administration Vital Signs: Temp Pulse Resp BP Pulse Ox 10/12/20 08:37 97.8 F 109 H 22 138/85 80 L Discharge Plan Discharge Patient Disposition: ADMITTED INPATIENT Discharge Problem: Pneumonia due to COVID-19 virus ED Provider: BURKE SANTIAGO Condition: Stable Physician Progress Note: Multiple lengthy discussion with gerhard Pereira and with Dr. Yoo; patient and family insist on full code status; as we have tried for hours within a 250 mile radius and are unable to locate a facility, will admit here, recognizing that proactive management of possible respiratory failure makes prompt intubation, sedation, and ventilator a reasonable course of action. Family and patient are aware that prognosis for Covid-19 pneumonia is poor based on patient's age, weight, and co-morbidities.
[2020-10-12 09:46] LABS: ABG PH 7.41 (7.35-7.45)
[2020-10-12 09:47] LABS: ABG HCO3 40.8 (22.0-26.0); ABG OXYGEN SATURATION 90.4 % (95-100); ABG TCO2 42.6 (22.0-28.0)
[2020-10-12 10:12] LABS: BASOPHILS % (AUTO) 0.4 % (0.0-3.0); HEMATOCRIT 41.5 % (37.0-47.0); IMMATURE GRANULOCYTE % (AUTO) 0.5 % (0.0-5.0); LYMPHOCYTES # (AUTO) 0.4 K/uL (0.60-3.4); MEAN CORPUSCULAR HEMOGLOBIN 30.3 pg (27.0-31.0); MEAN CORPUSCULAR HGB CONC 31.3 (31.8-35.4); MEAN CORPUSCULAR VOLUME 96.7 fl (81.0-99.0); MONOCYTES # (AUTO) 0.5 K/uL (0.4-2.0); MONOCYTES % (AUTO) 9.5 (0-10); NEUTROPHILS # (AUTO) 4.5 K/ul (2.0-6.9); NEUTROPHILS % (AUTO) 82.7 % (42.2-75.2); PLATELET COUNT 172 10^3/uL (140-440); RDW COEFFICIENT OF VARIATION 13.2 % (11.6-14.8); RED BLOOD COUNT 4.29 10^6/ul (4.20-5.40); WHITE BLOOD COUNT 5.48 K/ul (4.6-10.2)
[2020-10-12 10:21] LABS: ALANINE AMINOTRANSFERASE 13.7 U/L (0-35); ALBUMIN 3.58 g/dL (3.5-5.0); ALKALINE PHOSPHATASE 88.1 U/L (53-141); ASPARTATE AMINO TRANSFERASE 24.8 U/L (14-36); BILIRUBIN,TOTAL 0.64 mg/dL (0.2-1.3); CALCIUM 8.52 mg/dL (8.4-10.2); CHLORIDE 95.2 mmol/L (98-107); CREATININE 0.65 mg/dL (0.60-1.30); GLUCOSE 127.9 mg/dL (74-106); POTASSIUM 4.12 mmol/L (3.5-5.1); SODIUM 138.4 mmol/L (134.5-145); TOTAL PROTEIN 6.58 g/dL (6.3-8.2)
--- NOTE | 2020-10-12 10:22 | DI ---
EXAM: Single view of the chest. History: Short of breath Comparison: Chest radiograph 03/29/2018 Findings: Heart is mildly enlarged. Right basilar consolidation. Cannot exclude small right pleura l effusion. No pneumothorax. No acute osseous abnormalities. Impression: Right basilar pneumonia. Mild cardiomegaly
[2020-10-12 10:27] LABS: LYMPHOCYTES % (AUTO) 6.9 (10.0-50.0)
[2020-10-12] MEDS ORDERED: ZITHROMAX 500 MG in SODIUM CHLORIDE 250 ML IV STA (10:27)
[2020-10-12 10:28] LABS: CARBON DIOXIDE 38.1 mmol/L (22-30.0)
[2020-10-12] MEDS ORDERED: ROCEPHIN 1 GM/50 ML D5W 1 GM/50 ML BAG IV STA (10:29)
[2020-10-12 10:34] LABS: TROPONIN I < 0.012 ng/ml (0.0000-0.120)
[2020-10-12] MEDS ORDERED: REMDESIVIR 200 MG in SODIUM CHLORIDE 210 ML IV STA (14:17)
[2020-10-12] MEDS ORDERED: D5%-NS-KCL 20 MEQ/L IV SOL 1,000 ML IV SCH (14:30)
[2020-10-12 14:55] LABS: PROTHROMBIN TIME 9.3 SEC (9.3-11.0)
[2020-10-12] MEDS ORDERED: DIPRIVAN 1,000 MG/100 ML VIAL 1,000 MG/100 ML INFUS..BTL IV ONE ×2 (15:40→18:08)
[2020-10-12] MEDS ORDERED: ANECTINE ONE (15:41)
[2020-10-12] MEDS ORDERED: SUBLIMAZE ONE (15:41)
[2020-10-12] MEDS ORDERED: DIPRIVAN 20 ML VIAL IVP ONE (15:41)
[2020-10-12] MEDS ORDERED: VERSED ONE (15:41)
[2020-10-12 15:52] VITALS: TEMP 98.3; BMI 51.6
[2020-10-12] MEDS ORDERED: VERSED IVP STA (15:55)
[2020-10-12] MEDS ORDERED: SUBLIMAZE IVP STA (15:55)
[2020-10-12] MEDS ORDERED: DIPRIVAN 20 ML VIAL IVP STA (15:56)
[2020-10-12] MEDS ORDERED: ANECTINE IVP STA (15:56)
[2020-10-12] MEDS: DIPRIVAN 1,000 MG/100 ML VIAL 1,000 MG/100 ML INFUS..BTL IV SCH ×2 (16:00→18:13)
[2020-10-12] MEDS ORDERED: ZEMURON ONE (16:08)
[2020-10-12] MEDS ORDERED: ZEMURON IVP STA (16:10)
--- NOTE | 2020-10-12 17:16 | PCM ---
Chief Complaint Chief Complaint: "im short of breath" History of Present Illness History of Present Illness: This is a 69 yr old lady with hx of obesity, and chronic resp failure due to copd who presented to ed with worsening cough, sob and hypoxia. She was found to be covid positive in the ed with infiltrate on cxr. Review of Systems Constitutional: Reports Chills, Weakness, Fatigue and Loss of appetite Ears: Reports No symptoms Nose: Reports No symptoms and Congestion Throat: Reports No symptoms Mouth: Reports No symptoms Respiratory: Reports Cough, Shortness of air and Wheeze Cardiovascular: Reports No symptoms Gastrointestinal: Reports No symptoms Genitourinary: Reports No symptoms Neurological: Reports No symptoms Musculoskeletal: Reports No symptoms Skin: Reports No symptoms Immunology: Reports No symptoms Hematology: Reports No symptoms Endocrine: Reports No symptoms Psychiatric: Reports No symptoms Habits: Reports Tobacco use Allergies Allergies Allergy/AdvReac Type Severity Reaction Status Date / Time ibuprofen [From Advil] AdvReac Verified 10/12/20 09:06 oxycodone HCl AdvReac HALLUCINATI Verified 10/12/20 09:06 [From OxyContin] ONS PFSH Medical History Chronic obstructive pulmonary disease Elevated cholesterol Gastroesophageal reflux disease Heart disease History of seasonal allergies Surgical History Permacath Status post appendectomy Status post cholecystectomy tracheotomy Family History Mother Elevated cholesterol Seasonal allergies Cardiac disease Anesthesia complication Cerebrovascular accident Hypertension FATHER Seasonal allergies BROTHER Seasonal allergies MATERNAL GRANDMOTHER Seasonal allergies MATERNAL GRANDFATHER Seasonal allergies PATERNAL GRANDMOTHER Seasonal allergies PATERNAL GRANDFATHER Seasonal allergies Social History Smoking and tobacco status: Former smoker Medications Medications: Medications Generic Name Dose Route Start Last Admin Trade Name Freq PRN Reason Stop Dose Admin Potassium Chloride/Dextrose/Sod Cl 1,000 mls @ 100 mls/hr 10/12/20 14:30 10/12/20 15:43 D5%-Ns-Kcl 20 Meq/L Iv Shelby IV 100 mls/hr .Q10H NNAMDI Administration REMDESIVIR POWDER 100 mg/ 100 mls @ 100 mls/hr 10/13/20 09:00 Sodium Chloride IV DAILY NNAMDI Sodium Chloride 1 syr 10/12/20 09:06 10/12/20 09:38 0.9% Sodium Chloride 10 Ml Disp.Syrin IVF 1 syr PRN PRN Administration To flush IV Body Composition Height: 5 ft 2 in Weight: 282 lb 3.067 oz Body Mass Index (BMI): 51.6 Vital Signs Temperature: 98.3 F Pulse Rate: 96 Respiratory Rate: 18 Blood Pressure: 138/85 O2 Sat by Pulse Oximetry: 94 Physical Examination Appearance: Reports Ill-appearing and Obese Ill-appearing: Moderate Pain Distress: None Eyes: Reports KAYLYN, EOMI and Conjunctiva clear ENT: Reports Ears normal, Nose normal and Oropharynx normal Neck: Supple Respiratory: Reports Breath sounds diminished and Rhonchi Cardiovascular: Reports RRR, Pulses normal and No rub GI/: Reports Soft, Nontender and No masses Musculoskeletal: Reports Normal strength, ROM intact and Edema Skin: Reports Warm Neurological: Reports Sensation intact, Motor intact, Reflexes intact, Cranial nerves intact, Alert and Oriented Psychiatric: Reports Affect appropriate and Mood appropriate Lab/Tests/Diagnostic Imaging Lab/Tests/Diagnostic Imaging: Lab Review 10/12/20 10/12/20 10/12/20 09:15 09:45 09:45 WBC 5.48 RBC 4.29 Hgb 13.0 Hct 41.5 MCV 96.7 MCH 30.3 MCHC 31.3 L RDW Coeff of Romain 13.2 Plt Count 172 Immature Gran % (Auto) 0.5 Neut % (Auto) 82.7 H Lymph % (Auto) 6.9 L [place] % (Auto) 9.5 Eos % (Auto) 0.0 Baso % (Auto) 0.4 Neut # (Auto) 4.5 Lymph # (Auto) 0.4 L [place] # (Auto) 0.5 Eos # (Auto) 0.0 Baso # (Auto) 0.0 Immature Gran # (Auto) 0.0 PT INR Puncture Site R rad O2 Saturation 90.4 L ABG pH 7.41 ABG pCO2 64.0 H ABG pO2 59.0 L* ABG HCO3 40.8 H ABG Total CO2 42.6 H ABG Base Excess 16.0 H Wenceslao Test + O2 Delivery Device Nc Oxygen Liter Flow 3.00 Sodium Potassium Chloride Carbon Dioxide Anion Gap BUN Creatinine Estimated GFR (MDRD) BUN/Creatinine Ratio Glucose Lactic Acid Calcium Total Bilirubin AST ALT Alkaline Phosphatase Troponin I NT-Pro-B Natriuret Pep Total Protein Albumin Globulin Albumin/Globulin Ratio Adenovirus (PCR) B. pertussis DNA (PCR) B.parapertussis DNA PCR C. pneumoniae DNA (PCR) Coronavirus OC43 (PCR) Coronavirus HKU1 (PCR) Coronavirus 229E (PCR) Coronavirus NL63 (PCR) Human Metapneumovir PCR Influenza Type A (PCR) Influenza B (RT-PCR) M. pneumoniae (PCR) Parainfluenza 1 (PCR) Parainfluenza 2 (PCR) Parainfluenza 3 (PCR) Parainfluenza 4 (PCR) RSV (PCR) Entero/Rhino (PCR) SARS-CoV-2 (PCR) SARS-CoV-2 RNA (RT-PCR) Cancelled 10/12/20 10/12/20 10/12/20 09:45 09:45 09:45 WBC RBC Hgb Hct MCV MCH MCHC RDW Coeff of Romain Plt Count Immature Gran % (Auto) Neut % (Auto) Lymph % (Auto) [place] % (Auto) Eos % (Auto) Baso % (Auto) Neut # (Auto) Lymph # (Auto) [place] # (Auto) Eos # (Auto) Baso # (Auto) Immature Gran # (Auto) PT 9.3 INR 0.95 Puncture Site O2 Saturation ABG pH ABG pCO2 ABG pO2 ABG HCO3 ABG Total CO2 ABG Base Excess Wenceslao Test O2 Delivery Device Oxygen Liter Flow Sodium 138.4 Potassium 4.12 Chloride 95.2 L Carbon Dioxide 38.1 H Anion Gap 9.22 BUN 22.0 H Creatinine 0.65 Estimated GFR (MDRD) 91.00 BUN/Creatinine Ratio 33.84 Glucose 127.9 H Lactic Acid 0.62 L Calcium 8.52 Total Bilirubin 0.64 AST 24.8 ALT 13.7 Alkaline Phosphatase 88.1 Troponin I < 0.012 NT-Pro-B Natriuret Pep 71.000 Total Protein 6.58 Albumin 3.58 Globulin 3.00 Albumin/Globulin Ratio 1.19 Adenovirus (PCR) B. pertussis DNA (PCR) B.parapertussis DNA PCR C. pneumoniae DNA (PCR) Coronavirus OC43 (PCR) Coronavirus HKU1 (PCR) Coronavirus 229E (PCR) Coronavirus NL63 (PCR) Human Metapneumovir PCR Influenza Type A (PCR) Influenza B (RT-PCR) M. pneumoniae (PCR) Parainfluenza 1 (PCR) Parainfluenza 2 (PCR) Parainfluenza 3 (PCR) Parainfluenza 4 (PCR) RSV (PCR) Entero/Rhino (PCR) SARS-CoV-2 (PCR) SARS-CoV-2 RNA (RT-PCR) 10/12/20 12:00 WBC RBC Hgb Hct MCV MCH MCHC RDW Coeff of Romain Plt Count Immature Gran % (Auto) Neut % (Auto) Lymph % (Auto) [place] % (Auto) Eos % (Auto) Baso % (Auto) Neut # (Auto) Lymph # (Auto) [place] # (Auto) Eos # (Auto) Baso # (Auto) Immature Gran # (Auto) PT INR Puncture Site O2 Saturation ABG pH ABG pCO2 ABG pO2 ABG HCO3 ABG Total CO2 ABG Base Excess Wenceslao Test O2 Delivery Device Oxygen Liter Flow Sodium Potassium Chloride Carbon Dioxide Anion Gap BUN Creatinine Estimated GFR (MDRD) BUN/Creatinine Ratio Glucose Lactic Acid Calcium Total Bilirubin AST ALT Alkaline Phosphatase Troponin I NT-Pro-B Natriuret Pep Total Protein Albumin Globulin Albumin/Globulin Ratio Adenovirus (PCR) Not detected B. pertussis DNA (PCR) Not detected B.parapertussis DNA PCR Not detected C. pneumoniae DNA (PCR) Not detected Coronavirus OC43 (PCR) Not detected Coronavirus HKU1 (PCR) Not detected Coronavirus 229E (PCR) Not detected Coronavirus NL63 (PCR) Not detected Human Metapneumovir PCR Not detected Influenza Type A (PCR) Not detected Influenza B (RT-PCR) Not detected M. pneumoniae (PCR) Not detected Parainfluenza 1 (PCR) Not detected Parainfluenza 2 (PCR) Not detected Parainfluenza 3 (PCR) Not detected Parainfluenza 4 (PCR) Not detected RSV (PCR) Not detected Entero/Rhino (PCR) Not detected SARS-CoV-2 (PCR) Detected H SARS-CoV-2 RNA (RT-PCR) Orders Category Date Time Status ABG DRAW REQUEST DAILY@0600 CARDIO 10/13/20 06:00 Ordered ABG DRAW REQUEST DAILY@0600 CARDIO 10/14/20 06:00 Ordered ABG DRAW REQUEST DAILY@0600 CARDIO 10/15/20 06:00 Ordered ABG DRAW REQUEST DAILY@0600 CARDIO 10/16/20 06:00 Ordered ABG DRAW REQUEST Stat CARDIO 10/12/20 09:22 Completed ABG DRAW REQUEST Timed CARDIO 10/12/20 19:00 Ordered EKG-(ED ONLY) Stat CARDIO 10/12/20 09:40 Completed EKG-(IP & OP ONLY) DAILY CARDIO 10/13/20 06:00 Ordered EKG-(IP & OP ONLY) DAILY CARDIO 10/14/20 06:00 Ordered METERED DOSE INHALATION Routine CARDIO 10/12/20 09:08 Completed OXYGEN Routine CARDIO 10/12/20 14:10 Ordered VENTILATOR Routine CARDIO 10/12/20 16:19 Ordered ACTIVITY .Complete BR CARE 10/12/20 14:07 Active BLOOD GLUCOSE MONITORING ACCUCHECK Q6H CARE 10/12/20 14:07 Active CATHETER INSERTION AND CARE Q8HR CARE 10/12/20 14:07 Active INTAKE & OUTPUT Q8HR CARE 10/12/20 14:08 Active ISOLATION ONCE CARE 10/12/20 14:11 Active REMINDER: Ask MD to d/c latrice DAILY CARE 10/12/20 14:08 Active VITAL SIGNS Q2HR CARE 10/12/20 14:08 Active NOTHING BY MOUTH DIETARY 10/12/20 Dinner Ordered ED POSTAL SERVICE WINDOW CLERK APPLIED .ONCE EMERGENCY 10/12/20 09:06 Active ED IV/MEDIPORT/POWERPORT .ONCE EMERGENCY 10/12/20 09:07 Active ABG DAILY@0600 LAB 10/13/20 06:00 Ordered ABG DAILY@0600 LAB 10/14/20 06:00 Ordered ABG Stat LAB 10/12/20 09:15 Completed ABG Timed LAB 10/12/20 19:00 Ordered BLOOD CULTURE (ED ONLY) Stat LAB 10/12/20 09:50 Received CBC W/ AUTO DIFF DAILY@0600 LAB 10/13/20 06:00 Ordered CBC W/ AUTO DIFF DAILY@0600 LAB 10/14/20 06:00 Ordered CBC W/ AUTO DIFF Stat LAB 10/12/20 09:45 Completed COMPREHENSIVE METABOLIC PANEL DAILY@0600 LAB 10/13/20 06:00 Ordered COMPREHENSIVE METABOLIC PANEL DAILY@0600 LAB 10/14/20 06:00 Ordered COMPREHENSIVE METABOLIC PANEL Stat LAB 10/12/20 09:45 Completed LACTIC ACID Stat LAB 10/12/20 09:45 Completed NT-PROBNP Stat LAB 10/12/20 09:45 Completed PT WITH INR DAILY@0600 LAB 10/13/20 06:00 Ordered PT WITH INR DAILY@0600 LAB 10/14/20 06:00 Ordered PT WITH INR Stat LAB 10/12/20 09:45 Completed RESPIRATORY PANEL 2.1 (PCR) Stat LAB 10/12/20 12:00 Completed TROPONIN I Stat LAB 10/12/20 09:45 Completed 0.9 % Sodium Chloride [Saline Flush] MEDS 10/12/20 09:06 Active 1 syr IVF PRN PRN Albuterol Inhaler(with Spacer) [Ventolin Hfa (Per Puff- MEDS 10/12/20 09:06 Discontinued with Spacer)] 2 puff IH ONCE STA Azithromycin Inj [Zithromax] 500 mg MEDS 10/12/20 10:27 Discontinued 0.9 % Sodium Chloride [Sodium Chloride] 250 ml IV ONCE Ceftriaxone/D5w 1 gm Premix [Rocephin 1 gm/50 ml D5w] MEDS 10/12/20 10:29 Discontinued 1 gm in 50 ml IV ONCE Dexamethasone Sod Phosphate [Decadron] MEDS 10/12/20 09:06 Discontinued 4 mg IVP ONCE STA Fentanyl Vial [Sublimaze] MEDS 10/12/20 15:41 Discontinued 100 mcg .ROUTE .STK-MED ONE Midazolam HCl Inj [Versed] MEDS 10/12/20 15:41 Discontinued 5 mg .ROUTE .STK-MED ONE Potassium Chloride/D5-0.9%NaCl [D5%-Ns-KCl 20 Meq/l IV MEDS 10/12/20 14:30 Active Shelby] 1,000 ml IV 100 mls/hr Propofol Inj [Diprivan 1,000 mg/100 ml Vial] MEDS 10/12/20 15:40 Discontinued 1,000 mg in 100 ml IV .STK-MED Propofol Inj [Diprivan 20 ml Vial] MEDS 10/12/20 15:41 Discontinued 200 mg IVP .STK-MED ONE Remdesivir Powder [Remdesivir] 100 mg MEDS 10/13/20 09:00 Active 0.9 % Sodium Chloride [Sodium Chloride] 80 ml IV DAILY Remdesivir Powder [Remdesivir] 200 mg MEDS 10/12/20 14:17 Discontinued 0.9 % Sodium Chloride [Sodium Chloride] 210 ml IV ONCE Rocuronium Peshtigo [Zemuron] MEDS 10/12/20 16:08 Discontinued 10 mg .ROUTE .STK-MED ONE Sodium Chloride 0.9% [Sodium Chloride] 1,000 ml MEDS 10/12/20 09:26 Discontinued IV BOLUS Succinylcholine Chloride [Anectine] MEDS 10/12/20 15:41 Discontinued 200 mg .ROUTE .STK-MED ONE RESUSCITATION STATUS Routine OTHERS 10/12/20 14:07 Ordered CHEST, 1V AP ONLY DAILY@0700 RADS 10/14/20 07:00 Stop Req CHEST, 1V AP ONLY DAILY@0700 RADS 10/15/20 07:00 Stop Req CHEST, 1V AP ONLY DAILY@0700 RADS 10/16/20 07:00 Stop Req CHEST, 1V AP ONLY DAILY@0700 RADS 10/17/20 07:00 Stop Req CHEST, 1V AP ONLY Stat RADS 10/12/20 09:06 Completed CHEST, 1V AP ONLY Stat RADS 10/12/20 16:20 Taken Medications Generic Name Dose Route Start Last Admin Trade Name Freq PRN Reason Stop Dose Admin Potassium Chloride/Dextrose/Sod Cl 1,000 mls @ 100 mls/hr 10/12/20 14:30 10/12/20 15:43 D5%-Ns-Kcl 20 Meq/L Iv Shelby IV 100 mls/hr .Q10H NNAMDI Administration REMDESIVIR POWDER 100 mg/ 100 mls @ 100 mls/hr 10/13/20 09:00 Sodium Chloride IV DAILY NNAMDI Sodium Chloride 1 syr 10/12/20 09:06 10/12/20 09:38 0.9% Sodium Chloride 10 Ml Disp.Syrin IVF 1 syr PRN PRN Administration To flush IV Discontinued Medications Generic Name Dose Route Start Last Admin Trade Name Freq PRN Reason Stop Dose Admin Albuterol Sulfate 2 puff 10/12/20 09:06 10/12/20 09:50 Albuterol Sulfate (Ventolin Hfa) 18 Gm 1 Puff With Spacer IH 10/12/20 09:07 2 puff ONCE STA Administration Dexamethasone Sodium Phosphate 4 mg 10/12/20 09:06 10/12/20 09:38 Dexamethasone Sod Phos 4 Mg/Ml Inj IVP 10/12/20 09:07 4 mg ONCE STA Administration Sodium Chloride 1,000 mls @ 1,000 mls/hr 10/12/20 09:26 10/12/20 09:38 Sodium Chloride IV 10/12/20 10:25 1,000 mls/hr BOLUS STA Administration Azithromycin 500 mg/ Sodium 250 mls @ 125 mls/hr 10/12/20 10:27 10/12/20 11:27 Chloride IV 10/12/20 12:26 125 mls/hr ONCE STA Administration CEFTRIAXONE/D5W 1 GM PREMIX 1 gm in 50 mls @ 75 mls/hr 10/12/20 10:29 10/12/20 10:43 Rocephin 1 Gm/50 Ml D5w IV 10/12/20 11:08 75 mls/hr ONCE STA Administration REMDESIVIR POWDER 200 mg/ 250 mls @ 125 mls/hr 10/12/20 14:17 10/12/20 16:19 Sodium Chloride IV 10/12/20 16:16 125 mls/hr ONCE STA Administration Assessment (1) Acute and chronic respiratory failure: Status: Acute Code(s): J96.20 - Acute and chronic respiratory failure, unspecified whether with hypoxia or hypercapnia SNOMED Code(s): 87088175 (2) Pneumonia due to COVID-19 virus: Status: Acute Code(s): U07.1 - COVID-19; J12.89 - Other viral pneumonia SNOMED Code(s): 130878990552806058 Plan Plan: the patient while in the ed had worsening work of breathing and worsening hypoxia and the ed md felt she would need intubation as she has hx of diff intubation and prolonged vent in the past requiring trach. THis was accompished by jenny albarran and dr valentine has been very diligent in searching for an icu bed due to her risk of complications.
--- NOTE | 2020-10-12 17:20 | PCM.DC ---
Final Diagnosis: acute over chronic resp failure, covid 19 infection with pneumonia (1) Acute and chronic respiratory failure: Status: Acute Code(s): J96.20 - Acute and chronic respiratory failure, unspecified whether with hypoxia or hypercapnia SNOMED Code(s): 14498816 (2) Pneumonia due to COVID-19 virus: Status: Acute Code(s): U07.1 - COVID-19; J12.89 - Other viral pneumonia SNOMED Code(s): 527867543903502466 Medications at Discharge: Ambulatory Orders Medication Instructions Recorded albuterol sulfate [Proair Hfa] 2 puff INHALATION Q6H PRN 11/08/13 aspirin 81 mg PO DAILYWM 11/08/13 atorvastatin [Lipitor] 10 mg PO DAILY 11/08/13 bupropion HCl 75 mg PO BID 11/08/13 diltiazem HCl 60 mg PO TID 11/08/13 guaifenesin [Mucinex] 600 mg PO BID 11/08/13 naproxen sodium [Aleve] 220 mg PO Q12H PRN 05/19/15 alprazolam 0.5 mg PO Q8HR PRN 03/29/18 budesonide-formoterol [Symbicort 2 puff INHALATION BID 03/29/18 160-4.5 Mcg Inhaler] bumetanide 1 mg PO DAILY 03/29/18 buspirone 15 mg PO BID 03/29/18 ergocalciferol (vitamin D2) 50,000 unit PO WEEKLY 03/29/18 [Vitamin D2] fluticasone furoate-vilanterol 1 ea INHALATION DAILY 03/29/18 [Breo Ellipta Inhaler] ipratropium-albuterol 1 vial NEB RTQ6H 03/29/18 potassium chloride [K-Dur] 20 meq PO DAILY 03/29/18 trazodone 50 mg PO BEDTIME 03/29/18
--- NOTE | 2020-10-12 17:22 | DI ---
Exam: Chest one-view History: Tube placement Findings / impression: Compared with earlier same day at 0955 hours. Interval placement endotrachea l tube with its tip at the clavicles level. Consolidative change in the right lung has increased sin ce prior. Stable cardiomediastinal contours.
[2020-10-12] MEDS ORDERED: TRANSDERM-SCOP 1.5 MG PATCH TD STA (17:23)
[2020-10-12 18:49] LABS: ABG BASE EXCESS 11.2 (-2.0-2.0); ABG HCO3 34.9 (22.0-26.0); ABG PH 7.47 (7.35-7.45)
[2020-10-12 18:50] LABS: ABG TCO2 36.4 (22.0-28.0)
[2020-10-12 20:15] VITALS: BP 109/71
[2020-10-13] MEDS ORDERED: REMDESIVIR 100 MG in SODIUM CHLORIDE 80 ML IV SCH (09:00)
--- NOTE | 2021-03-01 12:54 | SSS ---
PRINCIPAL DIAGNOSIS: 1. ACUTE AND CHRONIC RESPIRATORY FAILURE 2. PNEUMONIA DUE TO COVID-19 VIRUS DISCUSSION: This is a very pleasant 69-year-old patient of mine with history of COPD and obesity that presented to the Emergency Department with several days of shortness of breath. She presented to the Emergency Department and saw Dr. Gonsalez in the Emergency Department where she was found to have acute respiratory failure with hypoxia with oxygen saturation of 80 and a x-ray suggestive of pneumonia. Her Covid 19 test was positive. In the Emergency Department, she underwent intubation, mechanical ventilation and subsequently admitted to my services. PAST MEDICAL HISTORY: MEDICATIONS: Albuterol Dexamethasone Zithromax Rocephin Remdesivir ALLERGIES: IBUPROFEN, OXYCODONE HCI PAST MEDICAL HISTORY: History of COPD Chronic respiratory failure on home oxygen Hyperlipidemia GERD History of heart disease PAST SURGICAL HISTORY: History of Permacath History of appendectomy Cholecystectomy Tracheotomy SOCIAL HISTORY: She is a previous smoker. Denies any alcohol or illicit drug use. FAMILY HISTORY: Positive for heart disease in her family. REVIEW OF SYSTEMS: No headaches, visual changes, tinnitus, chest pain, abdominal pain, blood in the stool, urinary symptoms or seizures. PHYSICAL EXAMINATION: VITAL SIGNS: Temperature 96, respiratory rate 18, BP 109/71. HEENT: Pupils are round. NECK: Supple. CHEST: Clear with rhonchi and rales. CARDIOVASCULAR: Regular rate and rhythm. ABDOMEN: Soft, nontender. EXTREMITIES: Distal extremities without cyanosis or edema. CLINICAL COURSE: The patient was admitted to my services in [facility]. Due to the severity of the illness, I made the family aware the importance of her being in a critical care unit with a specialist trained in treatment of this. To that end, this patient was transferred to [facility] by helicopter. The family was aware of transfer. Please see orders. MTDD
== END 2020-10-12 18:45 | disposition short-term general hospital (02) | DRG 177 ==
LOC: ED 08:37 → SCU 14:25
PROVIDERS: ADMIT Family Medicine; ATTEND Family Medicine
DX: R53.1 Weakness; U07.1 COVID-19; J12.89 Other viral pneumonia; J44.9 Chronic obstructive pulmonary disease, unspecified; R06.02 Shortness of breath; R05 Cough

== ENCOUNTER 2024-01-05 08:45 | Observation (INO) ==
[2024-01-05 08:57] LABS: ABG O2 HGB 90.5 % (95-100); ABG PH 7.39 (7.35-7.45); BEecf 13.1 (-2.0-3.0); COHb 1.8 (0.5-1.5); HCO3 38.1 (21-28); MetHb 1.1 (0-1.5); sO2 90.3 % (94-98); tHb 14.4 g/dl (11.7-17.4)
[2024-01-05] MEDS: DUONEB NEB ONE (09:06)
--- NOTE | 2024-01-05 09:17 | DI ---
EXAM: CHEST ONE VIEW, FRONTAL VIEW ONLY. HISTORY: Shortness of breath. COMPARISON: 03/01/2022. FINDINGS: Stable position of left subclavian approach chest port. Heart is enlarged but stable. Ma ss-like consolidation right infrahilar region again noted, unchanged from prior study. Stable blunti ng of the right costophrenic angle. Bibasilar bronchial thickening noted bilaterally, which is also stable. There is no new pulmonary opacity. No pneumothorax identified. No acute osseous abnormalit y detected. IMPRESSION: Stable chronic pulmonary opacities, most notably right infrahilar region, which may represent post-tr eatment changes/scarring. Recurrent pneumonia or other process not excluded. Correlate with CT if f urther evaluation is needed.
[2024-01-05 09:20] LABS: BASOPHILS % (AUTO) 0.3 % (0.0-3.0); HEMATOCRIT 42.5 % (37.0-47.0); IMMATURE GRANULOCYTE % (AUTO) 0.5 % (0.0-5.0); LYMPHOCYTES # (AUTO) 0.3 K/uL (0.60-3.4); LYMPHOCYTES % (AUTO) 4.5 (10.0-50.0); MEAN CORPUSCULAR HEMOGLOBIN 31.1 pg (27.0-31.0); MEAN CORPUSCULAR HGB CONC 30.6 (31.8-35.4); MEAN CORPUSCULAR VOLUME 101.7 fl (81.0-99.0); MONOCYTES # (AUTO) 0.8 K/uL (0.4-2.0); MONOCYTES % (AUTO) 11.8 (0-10); NEUTROPHILS # (AUTO) 5.3 K/ul (2.0-6.9); NEUTROPHILS % (AUTO) 82.9 % (42.2-75.2); PLATELET COUNT 106 10^3/uL (140-440); RDW COEFFICIENT OF VARIATION 12.2 % (11.6-14.8); RED BLOOD COUNT 4.18 10^6/ul (4.20-5.40); WHITE BLOOD COUNT 6.42 K/ul (4.6-10.2)
[2024-01-05 09:28] LABS: MOLECULAR FLU A NEGATIVE BY NAAT (NEGATIVE); MOLECULAR FLU B NEGATIVE BY NAAT (NEGATIVE); RSV MOLECULAR NEGATIVE BY NAAT (NEGATIVE)
[2024-01-05 09:29] LABS: SARS COV-2 RNA RAPID NAAT NEGATIVE (NEGATIVE)
[2024-01-05 09:34] LABS: ALBUMIN 3.69 g/dL (3.5-5.0); ALKALINE PHOSPHATASE 82.1 U/L (53-141); ASPARTATE AMINO TRANSFERASE 25.9 U/L (14-36); BILIRUBIN,TOTAL 0.61 mg/dL (0.2-1.3); BLOOD UREA NITROGEN 22.3 mg/dL (7-17); CALCIUM 8.31 mg/dL (8.4-10.2); CARBON DIOXIDE 35.5 mmol/L (22-30.0); CHLORIDE 100.2 mmol/L (98-107); CREATINE KINASE 53.7 U/L (30-135); CREATININE 0.54 mg/dL (0.60-1.30); GLUCOSE 136.8 mg/dL (74-106); POTASSIUM 4.18 mmol/L (3.5-5.1); SODIUM 135.8 mmol/L (134.5-145); TOTAL PROTEIN 6.22 g/dL (6.3-8.2)
[2024-01-05 09:45] LABS: TROPONIN I < 0.012 ng/ml (0.0000-0.120)
--- NOTE | 2024-01-05 11:06 | ED.PDOC ---
General ED Provider: Dr. AIDAN RENNER MD Chief Complaint: Shortness of Air Stated Complaint: Shortness of air Time Seen by Provider: 01/05/24 08:55 Mode of Arrival: Stretcher Information Source: Patient, Family and EMT Exam Limitations: Clinical condition (Low O2 sats on 4 L.) Primary Care Provider: LUL YOO Nursing and Triage Documentation Reviewed and Agree: Yes Does Patient Take Opioids?: No Is Patient Opioid Naive?: Yes What is Opioid Naive?: *Opioid Naive implies the patient is not already taking opioids or not chronically receiving opioids on a daily basis. *PRN dosing is not "usually" associated with tolerance. *Patients are at higher risk of over-sedation and aspiration. Is Patient Opioid Tolerant?: No What is Opioid Tolerant?: *Opioid Tolerance implies less than the expected response to an opioid. *Acquired tolerance is defined by the patient taking 60mg of oral morphine daily (or equianalgesic dose of another opioid) for 1 week or more. *Often associated with chronic pain. *May take more than usual dose to achieve desired pain control. Respiratory Complaint Exam Shortness of Air Complaint/Exam Onset/Duration: 24 hours Symptoms Are: Still present (But improved) Timing: Constant Initial Severity: Moderate Current Severity: Moderate Character: Reports Dyspnea at rest and Dyspnea on exertion Associated Signs and Symptoms: Reports Cough (Nonproductive cough) and Calf swelling Home Oxygen Use: Yes Recent Stress Test: Yes Respiratory Distress: None Stridor Present: No Tracheal Deviation: No Fatigue: Yes Leg Swelling: Yes Santa's Sign Present: No Grunting Respirations: No Differential Diagnoses: CHF, Pulmonary Edema, COPD Exacerbation and Pneumonia Review of Systems Review Of Systems Constitutional: Reports Weakness PFSH Medical History Chronic obstructive pulmonary disease Elevated cholesterol Gastroesophageal reflux disease Heart disease History of seasonal allergies Family History Mother Elevated cholesterol Seasonal allergies Cardiac disease Anesthesia complication Cerebrovascular accident Hypertension FATHER Seasonal allergies BROTHER Seasonal allergies MATERNAL GRANDMOTHER Seasonal allergies MATERNAL GRANDFATHER Seasonal allergies PATERNAL GRANDMOTHER Seasonal allergies PATERNAL GRANDFATHER Seasonal allergies Social History Smoking and tobacco status: Former smoker Surgical History Permacath Status post appendectomy Status post cholecystectomy tracheotomy Female Reproductive History Menstrual Hx Hysterectomy: No Hx Tubal Ligation: No Physical Exam Physical Exam Appearance: Reports Ill-appearing Respiratory: Reports Airway patent, Breath sounds clear and Breath sounds equal Cardiovascular: Reports RRR Musculoskeletal: Reports Normal strength Course Course 01/05/24 09:16 01/05/24 09:16 Orders, Labs, Meds: Lab Review 01/05/24 01/05/24 01/05/24 08:54 08:55 09:16 WBC 6.42 RBC 4.18 L Hgb 13.0 Hct 42.5 MCV 101.7 H MCH 31.1 H MCHC 30.6 L RDW Coeff of Romain 12.2 Plt Count 106 L Immature Gran % (Auto) 0.5 Neut % (Auto) 82.9 H Lymph % (Auto) 4.5 L [place] % (Auto) 11.8 H Eos % (Auto) 0.0 Baso % (Auto) 0.3 Neut # (Auto) 5.3 Lymph # (Auto) 0.3 L [place] # (Auto) 0.8 Eos # (Auto) 0.0 Baso # (Auto) 0.0 Immature Gran # (Auto) 0.0 Puncture Site Rbr Base Excess 13.1 H O2 Saturation 90.3 L ABG pH 7.39 ABG pCO2 63.0 H ABG pO2 60.0 L ABG HCO3 38.1 H ABG Total CO2 40.0 H Wenceslao Test + Hemoglobin 1.1 Oxyhemoglobin 90.5 L Carboxyhemoglobin 1.8 H Total Hemoglobin 14.4 O2 Delivery Device Cannula Oxygen Liter Flow 4.00 FiO2 % 36.0 Sodium 135.8 Potassium 4.18 Chloride 100.2 Carbon Dioxide 35.5 H Anion Gap 4.28 BUN 22.3 H Creatinine 0.54 L Estimated GFR (MDRD) 111.00 BUN/Creatinine Ratio 41.29 Glucose 136.8 H Calcium 8.31 L Total Bilirubin 0.61 AST 25.9 ALT 18.0 Alkaline Phosphatase 82.1 Total Creatine Kinase 53.7 Troponin I < 0.012 NT-Pro-B Natriuret Pep 199 Total Protein 6.22 L Albumin 3.69 Globulin 2.53 Albumin/Globulin Ratio 1.45 Influ A Molecular Assay Negative by naat Influ B Molecular Assay Negative by naat RSV Antigen Negative by naat SARS CoV-2 RNA Rapid JASBIR Negative Orders Category Date Time Status ABG DRAW REQUEST Stat CARDIO 01/05/24 08:50 Completed ABG DRAW REQUEST Stat CARDIO 01/05/24 08:51 Ordered EKG-(ED ONLY) Stat CARDIO 01/05/24 08:51 Completed ED IV/MEDIPORT/POWERPORT .ONCE EMERGENCY 01/05/24 08:50 Active ED PULSE OX .ONCE EMERGENCY 01/05/24 08:50 Active ABG COOX Stat LAB 01/05/24 08:51 Ordered ABG COOX Stat LAB 01/05/24 08:54 Completed CBC W/ AUTO DIFF Stat LAB 01/05/24 09:16 Completed COMPREHENSIVE METABOLIC PANEL Stat LAB 01/05/24 09:16 Completed CREATINE KINASE Stat LAB 01/05/24 09:16 Completed FLU A/B MOLECULAR Stat LAB 01/05/24 08:55 Completed NT-PROBNP(ED) Stat LAB 01/05/24 09:16 Completed RSV Stat LAB 01/05/24 08:55 Completed SARS COV-2 RNA RAPID JASBIR Stat LAB 01/05/24 08:55 Completed TROPONIN I Stat LAB 01/05/24 09:16 Completed 0.9 % Sodium Chloride [Saline Flush] Meds 01/05/24 08:50 Active 1 syr IVF PRN PRN Ipratropium/Albuterol Neb [Duoneb] Meds 01/05/24 08:53 Discontinued 3 ml NEB ONCE ONE CHEST, 1V AP ONLY Stat RADS 01/05/24 08:51 Completed Medications Generic Name Dose Route Start Last Admin Trade Name Freq PRN Reason Stop Dose Admin Sodium Chloride 1 syr 01/05/24 08:50 0.9% Sodium Chloride 10 Ml Disp.Syrin IVF PRN PRN To flush IV Discontinued Medications Generic Name Dose Route Start Last Admin Trade Name Freq PRN Reason Stop Dose Admin Albuterol/Ipratropium 3 ml 01/05/24 08:53 01/05/24 09:06 Ipratropium/Albuterol Vial.Neb NEB 01/05/24 08:54 3 ml ONCE ONE Administration Vital Signs: Temp Pulse Resp BP Pulse Ox 01/05/24 08:58 76 L 01/05/24 08:48 98.4 F 107 H 32 H 144/95 H 76 L Discharge Plan Discharge Patient Disposition: PLACED OBSERVATION Discharge Problem: Acute and chronic respiratory failure Prescriptions: No Action atorvastatin [Lipitor] 10 MG tablet 10 mg PO DAILY aspirin 81 MG tablet,delayed release (DR/EC) 81 mg PO DAILYWM bupropion HCl 75 MG tablet 75 mg PO BID albuterol sulfate [ProAir HFA] 1 PUFF HFA aerosol inhaler 2 puff inhalation Q6H PRN (Reason: Bronchospasm) diltiazem HCl 60 MG tablet 60 mg PO TID guaifenesin [Mucinex] 600 MG tablet extended release 12hr 600 mg PO BID naproxen sodium [Aleve] 220 MG tablet 220 mg PO Q12H PRN (Reason: pain) hydrocodone-acetaminophen [[place]] 5-325 mg Tablet 1 tab PO Q6H PRN (Reason: Analgesia) ipratropium-albuterol 1 VIAL solution for nebulization 1 vial NEB RTQ6H trazodone 50 MG tablet 50 mg PO BEDTIME alprazolam 0.5 MG tablet 0.5 mg PO Q8HR PRN (Reason: Anxiety) bumetanide 1 MG tablet 1 mg PO DAILY ergocalciferol (vitamin D2) [Vitamin D2] 50,000 UNIT capsule 50,000 unit PO WEEKLY buspirone 15 MG tablet 15 mg PO BID Did you review [place] for ALL controlled substances?: No ED Provider: AIDAN RENNER Physician Progress Note: [Discussed the case with Dr. Ramirez and nurse practitioner Leo Broussard. At this time the patient's sats are in the mid 90s. This is on 4 L. After DuoNeb. The radiology interpretation of the x-ray appears to be equivocal. No mila pneumonia but going to cover her for community-acquired pneumonia anyway because of her immunocompromised status.] Will admit her to observation for telemetry overnight.
[2024-01-05] MEDS: ROCEPHIN 1 GM/50 ML D5W 1 GM/50 ML BAG IV ONE (11:31)
[2024-01-05] MEDS ORDERED: TYLENOL PO PRN (12:02)
[2024-01-05] MEDS ORDERED: ALBUTEROL 0.083% NEB NEB PRN (12:02)
[2024-01-05] MEDS ORDERED: ZOFRAN 4 MG/2 ML IVP PRN (12:02)
[2024-01-05 12:29] VITALS: BMI 43.5
--- NOTE | 2024-01-05 13:29 | PCM ---
Date of Service Date Seen by Provider: 01/05/24 Time Seen by Provider: 13:00 Admit Day/Time Admission Date: 01/05/24 Reason for Admission Chief Complaint: RESP DISTRESS; PNEUMONIA Hospital Provider Hospital Provider: ARLEN FARNSWORTH, [facility] [place] Primary Care Physician: LUL YOO History of Present Illness History of Present Illness: 73 yo female presented to the ER with SOB. Patient states she has not felt well since Thursday01/01/24 and thought she just had a cold. Ran a fever at home one day since then. This morning she could not get enough air and checked her pulse ox that was reading in the 70s. She used her inhaler and breathing treatment which mildly helped. On arrival to the ER, O2 sat was 76% on her home oxygen of 4L. Denies any chest pain, n/v/d. Has pmh of squamous cell carcinoma of right lung and copd. Case Discussed With Case Discussed With: Patient's case was discussed with the ER Physicians, Dr. Lr [facility] Medical History Cancer of lung C34.90 - Malignant neoplasm of unspecified part of unspecified bronchus or lung (ICD-10) Gastroesophageal reflux disease K21.9 - Gastro-esophageal reflux disease without esophagitis (ICD-10) Chronic obstructive pulmonary disease J44.9 - Chronic obstructive pulmonary disease, unspecified (ICD-10) Heart disease I51.9 - Heart disease, unspecified (ICD-10) Elevated cholesterol E78.00 - Pure hypercholesterolemia, unspecified (ICD-10) History of seasonal allergies Z88.9 - Allergy status to unspecified drugs, medicaments and biological substances status (ICD-10) Surgical History tracheotomy Permacath Status post cholecystectomy Z90.49 - Acquired absence of other specified parts of digestive tract (ICD- 10) Status post appendectomy Z90.49 - Acquired absence of other specified parts of digestive tract (ICD- 10) Family History Mother Elevated cholesterol Seasonal allergies Cardiac disease Anesthesia complication Cerebrovascular accident Hypertension FATHER Seasonal allergies BROTHER Seasonal allergies MATERNAL GRANDMOTHER Seasonal allergies MATERNAL GRANDFATHER Seasonal allergies PATERNAL GRANDMOTHER Seasonal allergies PATERNAL GRANDFATHER Seasonal allergies Social History Smoking and tobacco status: Former smoker Allergies Allergies Allergy/AdvReac Type Severity Reaction Status Date / Time ibuprofen [From Advil] AdvReac Rash Verified 01/05/24 08:55 oxycodone HCl AdvReac HALLUCINATI Verified 01/05/24 08:55 [From OxyContin] ONS Current Medications Home Medications albuterol sulfate 90 mcg/actuation aerosol inhaler (ProAir HFA) 2 puff inhalation Q6H PRN Bronchospasm 11/08/13 [History Confirmed 01/05/24 Last Taken 11/08/13] aspirin 81 mg tablet,delayed release 81 mg PO DAILYWM 11/08/13 [History Confirmed 01/05/24 Last Taken 11/08/13] atorvastatin 10 mg tablet (Lipitor) 10 mg PO DAILY 11/08/13 [History Confirmed 01/05/24 Last Taken 03/28/18] bupropion HCl 75 mg tablet 75 mg PO BID 11/08/13 [History Confirmed 01/05/24 Last Taken 03/29/18] diltiazem HCl 60 mg tablet 60 mg PO TID 11/08/13 [History Confirmed 01/05/24 Last Taken 03/29/18] guaifenesin 600 mg tablet, extended release 12 hr (Mucinex) 600 mg PO BID 11/08/13 [History Confirmed 01/05/24 Last Taken 11/08/13] naproxen sodium 220 mg tablet (Aleve) 220 mg PO Q12H PRN pain 05/19/15 [History Confirmed 01/05/24 Last Taken Unknown] alprazolam 0.5 mg tablet 0.5 mg PO Q8HR PRN Anxiety 03/29/18 [History Confirmed 01/05/24 Last Taken Unknown] ergocalciferol (vitamin D2) 1,250 mcg (50,000 unit) capsule (Vitamin D2) 50,000 unit PO WEEKLY 03/29/18 [History Confirmed 01/05/24 Last Taken Unknown] ipratropium 0.5 mg-albuterol 3 mg (2.5 mg base)/3 mL nebulization soln 1 vial NEB RTQ6H 03/29/18 [History Confirmed 01/05/24 Last Taken Unknown] trazodone 50 mg tablet 50 mg PO BEDTIME 03/29/18 [History Confirmed 01/05/24 Last Taken 03/28/18] hydrocodone 5 mg-acetaminophen 325 mg tablet 1 tab PO Q6H PRN Analgesia 03/07/21 [History Confirmed 01/05/24 Last Taken Unknown] esomeprazole magnesium 40 mg capsule,delayed release (Nexium) 40 mg PO DAILY 01/05/24 [History Confirmed 01/05/24 Last Taken Unknown] fluticasone 250 mcg-salmeterol 50 mcg/dose blistr powdr for inhalation 1 inh inhalation BID 01/05/24 [History Confirmed 01/05/24 Last Taken Unknown] metoprolol tartrate 25 mg tablet 25 mg PO BID 01/05/24 [History Confirmed 01/05/24 Last Taken Unknown] Home Acetaminophen (Acetaminophen 325 Mg Tablet) 650 mg PO Q4H PRN PRN Reason: Mild Pain Albuterol Sulfate (Albuterol Sulfate 0.083% Vial.Neb) 2.5 mg NEB RTQ4H PRN PRN Reason: Wheezing Albuterol/Ipratropium (Ipratropium/Albuterol Vial.Neb) 3 ml NEB RTQ4H NNAMDI CEFTRIAXONE/D5W 1 GM PREMIX (Rocephin 1 Gm/50 Ml D5w) 1 gm in 50 mls @ 100 mls/hr IV DAILY [facility] Stop: 01/09/24 08:59 Azithromycin 500 mg/ Sodium (Chloride) 250 mls @ 250 mls/hr IV DAILY [facility] Stop: 01/08/24 12:29 Last Admin: 01/05/24 13:36 Dose: 250 mls/hr Methylprednisolone Sodium Succinate (Methylprednisolone Sod Succ/Pf 40 Mg/Ml Vial) 40 mg IVP Q8HR [facility] Last Admin: 01/05/24 13:30 Dose: 40 mg Ondansetron HCl (Ondansetron Hcl/Pf 4 Mg/2 Ml Sdv) 4 mg IVP Q6H PRN PRN Reason: Nausea / Vomiting Sodium Chloride (0.9% Sodium Chloride 10 Ml Disp.Syrin) 1 syr IVF PRN PRN PRN Reason: To flush IV Discontinued Medications Albuterol/Ipratropium (Ipratropium/Albuterol Vial.Neb) 3 ml NEB ONCE ONE Stop: 01/05/24 08:54 Last Admin: 01/05/24 09:06 Dose: 3 ml CEFTRIAXONE/D5W 1 GM PREMIX (Rocephin 1 Gm/50 Ml D5w) 1 gm in 50 mls @ 100 mls/hr IV ONCE ONE Stop: 01/05/24 11:35 Last Admin: 01/05/24 11:31 Dose: 100 mls/hr Opioid Naive vs. Tolerant Does Patient Take Opioids?: Yes Is Patient Opioid Naive?: No What is Opioid Naive?: *Opioid Naive implies the patient is not already taking opioids or not chronically receiving opioids on a daily basis. *PRN dosing is not "usually" associated with tolerance. *Patients are at higher risk of over-sedation and aspiration. Is Patient Opioid Tolerant?: No What is Opioid Tolerant?: *Opioid Tolerance implies less than the expected response to an opioid. *Acquired tolerance is defined by the patient taking 60mg of oral morphine daily (or equianalgesic dose of another opioid) for 1 week or more. *Often associated with chronic pain. *May take more than usual dose to achieve desired pain control. Review of Systems Constitutional: Reports Fever Head: Reports Normocephalic and Atraumatic Eyes: Reports No symptoms Ears: Reports No symptoms Nose: Reports No symptoms Mouth: Reports No symptoms Throat: Reports No symptoms Cardiovascular: Reports No symptoms Respiratory: Reports Cough and Shortness of air Gastrointestinal: Reports No symptoms Genitourinary: Reports No Symptoms Musculoskeletal: Reports No symptoms Endocrine: Reports No symptoms Hematology: Reports No symptoms Immunology: Reports No symptoms Neurological: Reports No symptoms Psychiatric: Reports No symptoms Physical examination Most Recent Vital Signs: Most Recent Vital Signs Temperature 100.4 F H 01/05/24 12:18 Temperature Source Temporal Artery Scan 01/05/24 12:18 Temperature Source Infrared 01/05/24 08:48 Pulse Rate 110 H 01/05/24 12:18 Respiratory Rate 24 H 01/05/24 12:18 Blood Pressure 144/95 H 01/05/24 08:48 Blood Pressure Right Arm 151/103 01/05/24 12:18 Blood Pressure Position Sitting 01/05/24 12:18 O2 Sat by Pulse Oximetry 96 01/05/24 12:18 Oxygen Delivery Method Nasal Cannula 01/05/24 13:00 Oxygen Flow Rate 4 01/05/24 12:18 Height 5 ft 6 in 01/05/24 12:18 Weight 269 lb 12.8 oz 01/05/24 12:18 Telemetry Type Remote Telemetry 01/05/24 12:54 Telemetry Monitoring Started 01/05/24 12:54 Telemetry Heart Rate 119 H 01/05/24 12:54 Telemetry SPO2 82 L 01/05/24 12:54 EKG VA Interval 0.14 01/05/24 12:54 EKG QRS Interval 0.07 01/05/24 12:[address] 01/05/24 12:54 Appearance: Positive No Apparent Distress and Alert and Oriented x3 Skin: Positive Warm and Good Turgor HEENT: Positive Normocephalic, Atraumatic and PERRLA Neck: Positive Supple and Midline Trachea Chest/Lungs: Positive Symmetrical With Equal Breath Sounds, Rhonci, Wheezes and Other (diminished at lung bases) Heart: Positive RRR and Pulses Normal GI/: Positive Soft, Nontender, Bowel Sounds Normal and No Distention Musculoskeletal: Positive Not Examined Extremities: Positive Intact Peripheral Pulses, Stable Joints Without Laxity and Good ROM in All Joints Neurological: Positive Sensation Intact, Motor intact, Reflexes Intact, Alert and Oriented Labs This Visit Labs This Visit: Labs This Visit 01/05/24 01/05/24 01/05/24 08:54 08:55 09:16 WBC 6.42 RBC 4.18 L Hgb 13.0 Hct 42.5 MCV 101.7 H MCH 31.1 H MCHC 30.6 L RDW Coeff of Romain 12.2 Plt Count 106 L Immature Gran % (Auto) 0.5 Neut % (Auto) 82.9 H Lymph % (Auto) 4.5 L [place] % (Auto) 11.8 H Eos % (Auto) 0.0 Baso % (Auto) 0.3 Neut # (Auto) 5.3 Lymph # (Auto) 0.3 L [place] # (Auto) 0.8 Eos # (Auto) 0.0 Baso # (Auto) 0.0 Immature Gran # (Auto) 0.0 Puncture Site Rbr Base Excess 13.1 H O2 Saturation 90.3 L ABG pH 7.39 ABG pCO2 63.0 H ABG pO2 60.0 L ABG HCO3 38.1 H ABG Total CO2 40.0 H [place]o Test + Hemoglobin 1.1 Oxyhemoglobin 90.5 L Carboxyhemoglobin 1.8 H Total Hemoglobin 14.4 O2 Delivery Device Cannula Oxygen Liter Flow 4.00 FiO2 % 36.0 Sodium 135.8 Potassium 4.18 Chloride 100.2 Carbon Dioxide 35.5 H Anion Gap 4.28 BUN 22.3 H Creatinine 0.54 L Estimated GFR (MDRD) 111.00 BUN/Creatinine Ratio 41.29 Glucose 136.8 H Calcium 8.31 L Total Bilirubin 0.61 AST 25.9 ALT 18.0 Alkaline Phosphatase 82.1 Total Creatine Kinase 53.7 Troponin I < 0.012 NT-Pro-B Natriuret Pep 199 Total Protein 6.22 L Albumin 3.69 Globulin 2.53 Albumin/Globulin Ratio 1.45 Procalcitonin < 0.05 Influ A Molecular Assay Negative by naat Influ B Molecular Assay Negative by naat RSV Antigen Negative by naat SARS CoV-2 RNA Rapid JASBIR Negative Imaging Imaging: EXAM: CHEST ONE VIEW, FRONTAL VIEW ONLY. HISTORY: Shortness of breath. COMPARISON: 03/01/2022. FINDINGS: Stable position of left subclavian approach chest port. Heart is enlarged but stable. Mass-like consolidation right infrahilar region again noted, unchanged from prior study. Stable blunting of the right costophrenic angle. Bibasilar bronchial thickening noted bilaterally, which is also stable. There is no new pulmonary opacity. No pneumothorax identified. No acute osseous abnormality detected. IMPRESSION: Stable chronic pulmonary opacities, most notably right infrahilar region, which may represent post-treatment changes/scarring. Recurrent pneumonia or other process not excluded. Correlate with CT if further evaluation is needed. Review Statement Review Statement: I have independently reviewed and interpreted the labs/EKGs/imaging that were ordered by the ER provider. I have reviewed all outside records that are available currently in our EMR including imaging/notes/labs from previous visits. Plan Plan: 1. Acute on Chronic Respiratory Failure in setting of COPD Exacerbation - O2 sat dropping down into upper 80s at times on home 4L, steroids, nebs, rocephin and azith 2. COPD exacerbation - see above plan 3. Hypertension - chronic, continue home medications 4. Hyperlipidemia - chronic, continue home medications 5. GERD - chronic, continue home medications 6. Squamous cell carcinoma of left lung - in remission, following with Dr. Castellon and Dr. De Dios DVT Prophylaxis: Up ad tamica Time Spent: Greater than 80 minutes spent with patient, 50% of the time spent with this patient was devoted to counseling and coordination of care. [facility]annin minutes spent discussing advance care planning. Disposition: Admit to: Med/surg Observation Discussed Plan of Care with Dr. Maye Whyte Medications Medication Orders: Medications Ordered Category Date Time Status 0.9 % Sodium Chloride [Saline Flush] Meds 01/05/24 08:50 Active 1 syr IVF PRN PRN Acetaminophen [Tylenol] Meds 01/05/24 12:02 Active 650 mg PO Q4H PRN Albuterol Sulfate 0.083% Neb [Albuterol 0.083% Neb] Meds 01/05/24 12:02 Active 2.5 mg NEB RTQ4H PRN Azithromycin Inj [Zithromax] 500 mg Meds 01/05/24 12:30 Active 0.9 % Sodium Chloride [Sodium Chloride] 250 ml IV DAILY Ceftriaxone/D5w 1 gm Premix [Rocephin 1 gm/50 ml D5w] Meds 01/06/24 09:00 Active 1 gm in 50 ml IV DAILY Ipratropium/Albuterol Neb [Duoneb] Meds 01/05/24 14:00 Active 3 ml NEB RTQ4H Methylprednisolone Sod Succ/Pf [Solu-Medrol 40 mg] Meds 01/05/24 13:00 Active 40 mg IVP Q8HR Ondansetron HCl/Pf [Zofran 4 mg/2 ml] Meds 01/05/24 12:02 Active 4 mg IVP Q6H PRN
[2024-01-05] MEDS: SOLU-MEDROL 40 MG IVP SCH (13:30)
[2024-01-05] MEDS: ZITHROMAX 500 MG in SODIUM CHLORIDE 250 ML IV SCH (13:36)
[2024-01-05] MEDS: DUONEB NEB SCH (13:36)
[2024-01-05] MEDS ORDERED: NORCO 5-325 PO PRN (14:24)
[2024-01-05] MEDS: CARDIZEM PO SCH (15:30)
[2024-01-05] MEDS: SYMBICORT 160-4.5 MCG INHALER IH SCH (20:21)
[2024-01-05] MEDS: WELLBUTRIN PO SCH (20:22)
[2024-01-05] MEDS: MUCINEX PO SCH (20:22)
[2024-01-05] MEDS: DESYREL PO SCH (20:22)
[2024-01-05] MEDS: LOPRESSOR PO SCH (20:22)
[2024-01-05] MEDS ORDERED: NON-FORMULARY MEDICATION (Fluticasone Propion-Salmeterol 250-50 mcg/dose blister with devi IH SCH (21:00)
[2024-01-06] MEDS: PROTONIX PO SCH (05:06)
[2024-01-06 05:39] LABS: HEMATOCRIT 43.1 % (37.0-47.0); HEMOGLOBIN 13.1 g/dl (12.0-16.0); IMMATURE GRANULOCYTE % (AUTO) 0.5 % (0.0-5.0); LYMPHOCYTES # (AUTO) 0.3 K/uL (0.60-3.4); LYMPHOCYTES % (AUTO) 8.7 (10.0-50.0); MEAN CORPUSCULAR HEMOGLOBIN 30.7 pg (27.0-31.0); MEAN CORPUSCULAR HGB CONC 30.4 (31.8-35.4); MEAN CORPUSCULAR VOLUME 100.9 fl (81.0-99.0); MONOCYTES # (AUTO) 0.1 K/uL (0.4-2.0); NEUTROPHILS # (AUTO) 3.2 K/ul (2.0-6.9); NEUTROPHILS % (AUTO) 87.8 % (42.2-75.2); PLATELET COUNT 123 10^3/uL (140-440); RDW COEFFICIENT OF VARIATION 12.1 % (11.6-14.8); RED BLOOD COUNT 4.27 10^6/ul (4.20-5.40); WHITE BLOOD COUNT 3.67 K/ul (4.6-10.2)
[2024-01-06 05:54] LABS: ALANINE AMINOTRANSFERASE 19.3 U/L (0-35); ALBUMIN 3.65 g/dL (3.5-5.0); ALKALINE PHOSPHATASE 69.2 U/L (53-141); ASPARTATE AMINO TRANSFERASE 23.9 U/L (14-36); BILIRUBIN,TOTAL 0.52 mg/dL (0.2-1.3); BLOOD UREA NITROGEN 17.8 mg/dL (7-17); CALCIUM 8.8 mg/dL (8.4-10.2); CARBON DIOXIDE 39.4 mmol/L (22-30.0); CHLORIDE 96.7 mmol/L (98-107); CREATININE 0.58 mg/dL (0.60-1.30); GLUCOSE 150.9 mg/dL (74-106); POTASSIUM 4.17 mmol/L (3.5-5.1); SODIUM 136.9 mmol/L (134.5-145); TOTAL PROTEIN 6.3 g/dL (6.3-8.2)
[2024-01-06] MEDS: ASPIRIN EC PO SCH (08:51)
[2024-01-06] MEDS: LIPITOR PO SCH (08:51)
[2024-01-06] MEDS: ROCEPHIN 1 GM/50 ML D5W 1 GM/50 ML BAG IV SCH (08:55)
[2024-01-06] MEDS ORDERED: NON-FORMULARY MEDICATION (Esomeprazole Magnesium [Nexium] 40 mg capsule,delayed release(DR PO SCH (09:00)
--- NOTE | 2024-01-06 12:14 | PCM.PROG ---
Date/Time Seen Date Seen by Provider: 01/06/24 Time Seen by Provider: 08:30 Provider [facility]WOR[facility] Chief Complaint Chief Complaint: RESP DISTRESS; PNEUMONIA Subjective Subjective: Feels some better today. Still SOB on exertion and has difficulty speaking. Objective Appearance: Positive No Apparent Distress, Alert and Oriented x3 and Ill- Appearing Chest/Lungs: Positive Symmetrical With Equal Breath Sounds and Clear to Auscultation Bilaterally (diminished in bases) Heart: Positive RRR and Pulses Normal GI/: Positive Soft, Nontender, Bowel Sounds Normal and No Distention Musculoskeletal: Positive Not Examined Neurological: Positive Sensation Intact, Motor intact, Reflexes Intact, Alert and Oriented Vital Signs Vital Signs: Vital Signs: Last 24 Hours 01/05/24 12:18 01/05/24 12:18 01/05/24 12:54 Temperature 100.4 F H Temperature Source Temporal Artery Scan Pulse Rate 110 H Respiratory Rate 24 H 24 H Blood Pressure Blood Pressure Mean Blood Pressure Right Arm 151/103 Blood Pressure Location Blood Pressure Position Sitting O2 Sat by Pulse Oximetry 96 Oxygen Delivery Method Nasal Cannula Nasal Cannula Oxygen Flow Rate 4 4 Height 5 ft 6 in Weight 269 lb 12.8 oz Telemetry Type Remote Telemetry Telemetry Monitoring Started Telemetry Heart Rate 119 H Telemetry SPO2 82 L EKG ID Interval 0.14 EKG QRS Interval 0.[address] 01/05/24 13:00 01/05/24 14:00 01/05/24 14:00 Temperature 98.9 F Temperature Source Oral Pulse Rate 104 H Respiratory Rate 18 Blood Pressure 128/77 Blood Pressure Mean 94 Blood Pressure Right Arm Blood Pressure Location Right Radial Artery Blood Pressure Position Sitting O2 Sat by Pulse Oximetry 96 Oxygen Delivery Method Nasal Cannula Nasal Cannula Nasal Cannula Oxygen Flow Rate 4 Height Weight Telemetry Type Telemetry Monitoring Telemetry Heart Rate Telemetry SPO2 EKG ID Interval EKG QRS Interval Telemetry Strip Reading 01/05/24 15:00 01/05/24 16:00 01/05/24 16:59 Temperature Temperature Source Pulse Rate Respiratory Rate Blood Pressure Blood Pressure Mean Blood Pressure Right Arm Blood Pressure Location Blood Pressure Position O2 Sat by Pulse Oximetry Oxygen Delivery Method Nasal Cannula Nasal Cannula Nasal Cannula Oxygen Flow Rate Height Weight Telemetry Type Telemetry Monitoring Telemetry Heart Rate Telemetry SPO2 EKG ID Interval EKG QRS Interval Telemetry Strip Reading 01/05/24 18:00 01/05/24 18:00 01/05/24 19:00 Temperature 98.9 F Temperature Source Tympanic Pulse Rate 95 Respiratory Rate 16 Blood Pressure 150/86 H Blood Pressure Mean 107 Blood Pressure Right Arm Blood Pressure Location Right Arm Blood Pressure Position Sitting O2 Sat by Pulse Oximetry 90 L Oxygen Delivery Method Nasal Cannula Nasal Cannula Nasal Cannula Oxygen Flow Rate 4 Height Weight Telemetry Type Telemetry Monitoring Telemetry Heart Rate Telemetry SPO2 EKG ID Interval EKG QRS Interval Telemetry Strip Reading 01/05/24 19:00 01/05/24 20:00 01/05/24 20:00 Temperature Temperature Source Pulse Rate Respiratory Rate Blood Pressure Blood Pressure Mean Blood Pressure Right Arm Blood Pressure Location Blood Pressure Position O2 Sat by Pulse Oximetry Oxygen Delivery Method Nasal Cannula Nasal Cannula Oxygen Flow Rate 4 Height Weight Telemetry Type Remote Telemetry Telemetry Monitoring Continues Telemetry Heart Rate 98 Telemetry SPO2 90 L EKG ID Interval 0.17 EKG QRS Interval 0.11 H Telemetry Strip Reading SR W/ BBB 01/05/24 20:00 01/05/24 21:00 01/05/24 21:23 Temperature 99.8 F Temperature Source Temporal Artery Scan Pulse Rate 100 Respiratory Rate 20 Blood Pressure 107/67 Blood Pressure Mean 80 Blood Pressure Right Arm Blood Pressure Location Left Arm Blood Pressure Position Supine O2 Sat by Pulse Oximetry 91 L 92 L Oxygen Delivery Method Nasal Cannula Nasal Cannula Nasal Cannula Oxygen Flow Rate 4 4 Height Weight Telemetry Type Telemetry Monitoring Telemetry Heart Rate Telemetry SPO2 EKG ID Interval EKG QRS Interval Telemetry Strip Reading 01/05/24 22:00 01/05/24 23:00 01/06/24 00:00 Temperature Temperature Source Pulse Rate Respiratory Rate Blood Pressure Blood Pressure Mean Blood Pressure Right Arm Blood Pressure Location Blood Pressure Position O2 Sat by Pulse Oximetry Oxygen Delivery Method Nasal Cannula Nasal Cannula Nasal Cannula Oxygen Flow Rate Height Weight Telemetry Type Telemetry Monitoring Telemetry Heart Rate Telemetry SPO2 EKG ID Interval EKG QRS Interval Telemetry Strip Reading 01/06/24 01:00 01/06/24 01:00 01/06/24 02:00 Temperature Temperature Source Pulse Rate Respiratory Rate Blood Pressure Blood Pressure Mean Blood Pressure Right Arm Blood Pressure Location Blood Pressure Position O2 Sat by Pulse Oximetry Oxygen Delivery Method Nasal Cannula Nasal Cannula Oxygen Flow Rate Height Weight Telemetry Type Remote Telemetry Telemetry Monitoring Continues Telemetry Heart Rate 77 Telemetry SPO2 92 L EKG ID Interval 0.20 EKG QRS Interval 0.08 Telemetry Strip Reading SR 01/06/24 03:00 01/06/24 04:00 01/06/24 05:00 Temperature Temperature Source Pulse Rate Respiratory Rate Blood Pressure Blood Pressure Mean Blood Pressure Right Arm Blood Pressure Location Blood Pressure Position O2 Sat by Pulse Oximetry Oxygen Delivery Method Nasal Cannula Nasal Cannula Nebulizer Treatment Oxygen Flow Rate Height Weight Telemetry Type Telemetry Monitoring Telemetry Heart Rate Telemetry SPO2 EKG ID Interval EKG QRS Interval Telemetry Strip Reading 01/06/24 05:01 01/06/24 05:03 01/06/24 05:41 Temperature 98.3 F Temperature Source Temporal Artery Scan Pulse Rate 84 Respiratory Rate 20 Blood Pressure 154/92 H Blood Pressure Mean 112 Blood Pressure Right Arm Blood Pressure Location Right Arm Blood Pressure Position Supine O2 Sat by Pulse Oximetry 95 99 Oxygen Delivery Method Nasal Cannula Nebulizer Treatment Nasal Cannula Oxygen Flow Rate 4 Height Weight Telemetry Type Telemetry Monitoring Telemetry Heart Rate Telemetry SPO2 EKG ID Interval EKG QRS Interval Telemetry Strip Reading 01/06/24 07:00 01/06/24 07:00 01/06/24 07:24 Temperature Temperature Source Pulse Rate Respiratory Rate Blood Pressure Blood Pressure Mean Blood Pressure Right Arm Blood Pressure Location Blood Pressure Position O2 Sat by Pulse Oximetry Oxygen Delivery Method Nasal Cannula Nasal Cannula Oxygen Flow Rate Height Weight Telemetry Type Remote Telemetry Telemetry Monitoring Continues Telemetry Heart Rate 82 Telemetry SPO2 92 L EKG ID Interval 0.22 H EKG QRS Interval 0.12 H Telemetry Strip Reading sr w/ bbb and 1st degree avb 01/06/24 08:00 01/06/24 09:00 01/06/24 09:32 Temperature Temperature Source Pulse Rate Respiratory Rate Blood Pressure Blood Pressure Mean Blood Pressure Right Arm Blood Pressure Location Blood Pressure Position O2 Sat by Pulse Oximetry 91 L Oxygen Delivery Method Nasal Cannula Nasal Cannula Nasal Cannula Oxygen Flow Rate 4 4 Height Weight Telemetry Type Telemetry Monitoring Telemetry Heart Rate Telemetry SPO2 EKG ID Interval EKG QRS Interval Telemetry Strip Reading 01/06/24 10:00 01/06/24 10:00 01/06/24 11:00 Temperature 97.8 F Temperature Source Temporal Artery Scan Pulse Rate 93 Respiratory Rate 17 Blood Pressure 124/78 Blood Pressure Mean 93 Blood Pressure Right Arm Blood Pressure Location Right Arm Blood Pressure Position Supine O2 Sat by Pulse Oximetry 94 L Oxygen Delivery Method Nasal Cannula Nasal Cannula Nasal Cannula Oxygen Flow Rate 4 Height Weight Telemetry Type Telemetry Monitoring Telemetry Heart Rate Telemetry SPO2 EKG ID Interval EKG QRS Interval Telemetry Strip Reading Lab Results Lab Results: Lab Results: Last 24 Hours 01/06/24 01/05/24 05:03 09:16 WBC 3.67 L RBC 4.27 Hgb 13.1 Hct 43.1 MCV 100.9 H MCH 30.7 MCHC 30.4 L RDW Coeff of Romain 12.1 Plt Count 123 L Immature Gran % (Auto) 0.5 Neut % (Auto) 87.8 H Lymph % (Auto) 8.7 L [place] % (Auto) 3.0 Eos % (Auto) 0.0 Baso % (Auto) 0.0 Neut # (Auto) 3.2 Lymph # (Auto) 0.3 L [place] # (Auto) 0.1 L Eos # (Auto) 0.0 Baso # (Auto) 0.0 Immature Gran # (Auto) 0.0 Sodium 136.9 Potassium 4.17 Chloride 96.7 L Carbon Dioxide 39.4 H Anion Gap 4.97 BUN 17.8 H Creatinine 0.58 L Estimated GFR (MDRD) 102.00 BUN/Creatinine Ratio 30.68 Glucose 150.9 H Calcium 8.80 Total Bilirubin 0.52 AST 23.9 ALT 19.3 Alkaline Phosphatase 69.2 Total Protein 6.30 Albumin 3.65 Globulin 2.65 Albumin/Globulin Ratio 1.37 Procalcitonin < 0.05 Additional Comments Additional Comments: I have independently reviewed and interpreted the labs/EKGs/imaging ordered during this hospital stay. I have reviewed outside records that are available in our EMR that pertain to medical stay including imaging/notes/labs from previous visits. Active Medications Active Medications: Medications Generic Name Dose Route Start Last Admin Trade Name Freq PRN Reason Stop Dose Admin Acetaminophen 650 mg 01/05/24 12:02 Acetaminophen 325 Mg Tablet PO Q4H PRN Mild Pain Hydrocodone Bitart/Acetaminophen 1 tab 01/05/24 14:24 Hydrocodone Bit/Acetaminophen 5/325 Mg Tablet PO Q6H PRN Pain Albuterol Sulfate 2.5 mg 01/05/24 12:02 Albuterol Sulfate 0.083% Vial.Neb NEB RTQ4H PRN Wheezing Albuterol/Ipratropium 3 ml 01/05/24 14:00 01/06/24 09:27 Ipratropium/Albuterol Vial.Neb NEB 3 ml RTQ4H NNAMDI Administration Alprazolam 1 mg 01/05/24 15:00 Alprazolam 0.5 Mg Tablet PO BID PRN Anxiety Aspirin 81 mg 01/06/24 07:30 01/06/24 08:51 Aspirin 81 Mg Tablet.Dr PO 81 mg DAILYWM2 NNAMDI Administration Atorvastatin Calcium 10 mg 01/06/24 09:00 01/06/24 08:51 Atorvastatin Calcium 10 Mg Tablet PO 10 mg DAILY NNAMDI Administration Budesonide/Formoterol Fumarate 2 puff 01/05/24 21:00 01/06/24 08:55 Budesonide/Formoterol Fumarate 160/4.5 Mcg Inhaler IH 2 puff BID NNAMDI Administration Bupropion HCl 75 mg 01/05/24 21:00 01/06/24 08:51 Bupropion Hcl 75 Mg Tablet PO 75 mg BID NNAMDI Administration Diltiazem HCl 60 mg 01/05/24 15:00 01/06/24 08:51 Diltiazem Hcl 60 Mg Tablet PO 60 mg TID NNAMDI Administration Guaifenesin 600 mg 01/05/24 21:00 01/06/24 08:51 Guaifenesin 600 Mg Tablet.Er PO 600 mg BID NNAMDI Administration CEFTRIAXONE/D5W 1 GM PREMIX 1 gm in 50 mls @ 100 mls/hr 01/06/24 09:00 01/06/24 08:55 Rocephin 1 Gm/50 Ml D5w IV 01/09/24 08:59 100 mls/hr DAILY NNAMDI Administration Azithromycin 500 mg/ Sodium 250 mls @ 250 mls/hr 01/05/24 12:30 01/06/24 10:18 Chloride IV 01/08/24 12:29 250 mls/hr DAILY NNAMDI Administration Methylprednisolone Sodium Succinate 40 mg 01/05/24 13:00 01/06/24 04:56 Methylprednisolone Sod Succ/Pf 40 Mg/Ml Vial IVP 40 mg Q8HR NNAMDI Administration Metoprolol Tartrate 25 mg 01/05/24 21:00 01/06/24 08:51 Metoprolol Tartrate 25 Mg Tablet PO 25 mg BID NNAMDI Administration Ondansetron HCl 4 mg 01/05/24 12:02 Ondansetron Hcl/Pf 4 Mg/2 Ml Sdv IVP Q6H PRN Nausea / Vomiting Pantoprazole Sodium 40 mg 01/06/24 06:00 01/06/24 05:06 Pantoprazole Sodium 40 Mg Tablet. PO 40 mg QDAC2 NNAMDI Administration Sodium Chloride 1 syr 01/05/24 08:50 0.9% Sodium Chloride 10 Ml Disp.Syrin IVF PRN PRN To flush IV Trazodone HCl 50 mg 01/05/24 21:00 01/05/24 20:22 Trazodone Hcl 50 Mg Tablet PO 50 mg BEDTIME NNAMDI Administration Plan Plan: 1. Acute on Chronic Respiratory Failure in setting of COPD Exacerbation - Improving, still SOB on exertion, O2 sat dropping down into upper 80s at times on home 4L, steroids, nebs, rocephin and azith 2. COPD exacerbation - see above plan 3. Hypertension - chronic, continue home medications 4. Hyperlipidemia - chronic, continue home medications 5. GERD - chronic, continue home medications 6. Squamous cell carcinoma of left lung - in remission, following with Dr. Castellon and Dr. De Dios DVT Prophylaxis: Up ad tamica Review Statement Review Statement: I have personally discussed and reviewed the patient's visit/currently labs/imaging/decision making with Dr. Whyte, my supervising attending. Greater that 50 minutes spent with patient, 50% of the time spent with this patient was devoted to counseling and coordination of care.
[2024-01-06] MEDS: XANAX PO PRN (21:58)
[2024-01-07 05:08] VITALS: RESP 18
[2024-01-07 05:44] LABS: HEMATOCRIT 42.1 % (37.0-47.0); HEMOGLOBIN 13.1 g/dl (12.0-16.0); MEAN CORPUSCULAR HEMOGLOBIN 31.5 pg (27.0-31.0); MEAN CORPUSCULAR HGB CONC 31.1 (31.8-35.4); MEAN CORPUSCULAR VOLUME 101.2 fl (81.0-99.0); PLATELET COUNT 132 10^3/uL (140-440); RED BLOOD COUNT 4.16 10^6/ul (4.20-5.40); WHITE BLOOD COUNT 4.19 K/ul (4.6-10.2)
[2024-01-07 05:53] LABS: ALANINE AMINOTRANSFERASE 16.1 U/L (0-35); ALBUMIN 3.47 g/dL (3.5-5.0); ASPARTATE AMINO TRANSFERASE 23.7 U/L (14-36); BILIRUBIN,TOTAL 0.46 mg/dL (0.2-1.3); BLOOD UREA NITROGEN 21.2 mg/dL (7-17); CALCIUM 8.98 mg/dL (8.4-10.2); CREATININE 0.45 mg/dL (0.60-1.30); GLUCOSE 146.8 mg/dL (74-106); POTASSIUM 4.16 mmol/L (3.5-5.1); SODIUM 137.1 mmol/L (134.5-145); TOTAL PROTEIN 6.01 g/dL (6.3-8.2)
[2024-01-07 05:55] LABS: ANISOCYTOSIS NOT PRESENT (NOT PRESENT)
[2024-01-07 06:00] LABS: CARBON DIOXIDE 36.1 mmol/L (22-30.0)
--- NOTE | 2024-01-07 08:11 | DCSUM ---
Admission Date Admission Date: 01/05/24 Discharge Date Discharge Date: 01/07/24 Admission Diagnosis Admission Diagnosis: 1. Acute on Chronic Respiratory Failure in setting of COPD Exacerbation 2. COPD exacerbation 3. Hypertension 4. Hyperlipidemia 5. GERD 6. Squamous cell carcinoma of left lung Discharge Diagnosis Discharge Diagnosis: 1. Acute on Chronic Respiratory Failure in setting of COPD Exacerbation 2. COPD exacerbation 3. Hypertension 4. Hyperlipidemia 5. GERD 6. Squamous cell carcinoma of left lung Hospital Provider Hospital Provider: ARLEN FARNSWORTH, [facility] Primary Care Physician Primary Care Physician: LUL YOO Summary of History and Physical Summary of History and Physical: 73 yo female presented to the ER with SOB. Patient states she has not felt well since Thursday01/01/24 and thought she just had a cold. Ran a fever at home one day since then. This morning she could not get enough air and checked her pulse ox that was reading in the 70s. She used her inhaler and breathing treatment which mildly helped. On arrival to the ER, O2 sat was 76% on her home oxygen of 4L. Denies any chest pain, n/v/d. Has pmh of squamous cell carcinoma of right lung and copd. Hospital Course Subjective: During course of stay, patient has been receiving rocephin and azithromycin Q24H for treatment of COPD exacerbation as well as nebs and steroids. She feels much better today and O2 sat is maintaining above 90%. She has kristen ined on her home 4L. Labs unremarkable. Afebrile. All home medications continued without changes made. Appearance: Pleasant, No Apparent Distress and Alert HEENT: MMM and Supple CVS: No Murmur and No Rubs Abdomen: Soft, Non-Tender and No Distention Respiratory: No Dyspnea Extremities: Other (+2 nonpitting edema BLE) Vital Signs: Most Recent Vital Signs Temperature 96.9 F L 01/07/24 05:05 Temperature Source Temporal Artery Scan 01/07/24 05:05 Temperature Source Infrared 01/05/24 08:48 Pulse Rate 80 01/07/24 05:05 Respiratory Rate 18 01/07/24 05:05 Blood Pressure 137/76 01/07/24 05:05 Blood Pressure Mean 96 01/07/24 05:05 Blood Pressure Right Arm 151/103 01/05/24 12:18 Blood Pressure Location Right Arm 01/07/24 05:05 Blood Pressure Position Supine 01/07/24 05:05 O2 Sat by Pulse Oximetry 94 L 01/07/24 05:05 Oxygen Delivery Method Nasal Cannula 01/07/24 07:29 Oxygen Flow Rate 4 01/07/24 05:05 Height 5 ft 6 in 01/05/24 12:18 Weight 269 lb 12.8 oz 01/05/24 12:18 Telemetry Type Remote Telemetry 01/07/24 01:00 Telemetry Monitoring Continues 01/07/24 01:00 Telemetry Heart Rate 72 01/07/24 01:00 Telemetry SPO2 93 01/07/24 01:00 EKG SD Interval 0.15 01/07/24 01:00 EKG QRS Interval 0.10 01/07/24 01:00 Telemetry Strip Reading SR 01/07/24 01:00 Lab Results Last 24 Hours: 01/07/24 01/07/24 04:54 04:00 WBC 4.19 L RBC 4.16 L Hgb 13.1 Hct 42.1 MCV 101.2 H MCH 31.5 H MCHC 31.1 L RDW Coeff of Romain 12.0 Plt Count 132 L Neutrophils % (Manual) 87.0 H Lymphocytes % (Manual) 8.0 L Monocytes % (Manual) 5.0 Anisocytosis Not present Sodium 137.1 Potassium 4.16 Chloride 97.0 L Carbon Dioxide 36.1 H Anion Gap 8.16 BUN 21.2 H Creatinine 0.45 L Estimated GFR (MDRD) 137.00 BUN/Creatinine Ratio 47.11 Glucose 146.8 H Calcium 8.98 Total Bilirubin 0.46 AST 23.7 ALT 16.1 Alkaline Phosphatase 65.0 Total Protein 6.01 L Albumin 3.47 L Globulin 2.54 Albumin/Globulin Ratio 1.36 Discharge Instructions Discharge Planning: Discharge Planning > 40 minutes If patient is discharged with left ventricular systolic dysfunction: NA Discharged with a beta feliberto? [] If no, why not? [] Discharged with an carisa/arb? [] If no, why not? [] DX: ACUTE ON CHRONIC RESPIRATORY FAILURE, COPD EXACERBATION RX: MEDROL PACK, KEFLEX, XANAX REGULAR DIET ACTIVITY CASH FOLLOW-UP WITH PCP NEXT WEEK Discharge Medications: Medications at Discharge (Home Meds & RX) albuterol sulfate 90 mcg/actuation aerosol inhaler (ProAir HFA) 2 puff inhalation Q6H PRN Bronchospasm 11/08/13 aspirin 81 mg tablet,delayed release 81 mg PO DAILYWM 11/08/13 atorvastatin 10 mg tablet (Lipitor) 10 mg PO DAILY 11/08/13 bupropion HCl 75 mg tablet 75 mg PO BID 11/08/13 diltiazem HCl 60 mg tablet 60 mg PO TID 11/08/13 guaifenesin 600 mg tablet, extended release 12 hr (Mucinex) 600 mg PO BID 11/08/13 naproxen sodium 220 mg tablet (Aleve) 220 mg PO Q12H PRN pain 05/19/15 alprazolam 0.5 mg tablet 1 mg PO BID PRN Anxiety 03/29/18 ergocalciferol (vitamin D2) 1,250 mcg (50,000 unit) capsule (Vitamin D2) 50,000 unit PO WEEKLY 03/29/18 ipratropium 0.5 mg-albuterol 3 mg (2.5 mg base)/3 mL nebulization soln 1 vial NEB RTQ6H 03/29/18 trazodone 50 mg tablet 50 mg PO BEDTIME 03/29/18 hydrocodone 5 mg-acetaminophen 325 mg tablet 1 tab PO Q6H PRN Analgesia 03/07/21 esomeprazole magnesium 40 mg capsule,delayed release (Nexium) 40 mg PO DAILY 01/05/24 fluticasone 250 mcg-salmeterol 50 mcg/dose blistr powdr for inhalation 1 inh inhalation BID 01/05/24 metoprolol tartrate 25 mg tablet 25 mg PO BID 01/05/24 Discharge Plan Discharge Discharge Orders: Discharge Patient (ONCE); Ordered 01/07/24 Ordered By: AYDIN SOLORIO Activity Restrictions/Additional Instructions: Regular diet Activity as tolerated Follow-up with PCP next week Continue using nebulizer treatments at home Medications: Steroid dose pack - take as directed until complete Keflex - take twice a day for 7 days Instructions: COPD (Chronic Obstructive Pulmonary Disease) (GEN) Patient Disposition: HOME SELF-CARE Prescriptions: New methylprednisolone [Medrol (Chidi)] 4 mg tablets,dose pack See Rx Instructions .ROUTE .COMPLEX Qty: 21 0RF Rx Instructions: orally per package directions cephalexin 500 mg capsule 500 mg PO BID Qty: 14 0RF Continued atorvastatin [Lipitor] 10 MG tablet 10 mg PO DAILY aspirin 81 MG tablet,delayed release (DR/EC) 81 mg PO DAILYWM bupropion HCl 75 MG tablet 75 mg PO BID albuterol sulfate [ProAir HFA] 1 PUFF HFA aerosol inhaler 2 puff inhalation Q6H PRN (Reason: Bronchospasm) diltiazem HCl 60 MG tablet 60 mg PO TID guaifenesin [Mucinex] 600 MG tablet extended release 12hr 600 mg PO BID naproxen sodium [Aleve] 220 MG tablet 220 mg PO Q12H PRN (Reason: pain) hydrocodone-acetaminophen 5-325 mg Tablet 1 tab PO Q6H PRN (Reason: Analgesia) ipratropium-albuterol 1 VIAL solution for nebulization 1 vial NEB RTQ6H trazodone 50 MG tablet 50 mg PO BEDTIME ergocalciferol (vitamin D2) [Vitamin D2] 50,000 UNIT capsule 50,000 unit PO WEEKLY Rx Instructions: Takes on Wednesdays. metoprolol tartrate 25 mg tablet 25 mg PO BID fluticasone propion-salmeterol 250-50 mcg/dose blister with device 1 inh inhalation BID esomeprazole magnesium [Nexium] 40 mg capsule,delayed release(DR/EC) 40 mg PO DAILY alprazolam 0.5 MG tablet 1 mg PO BID PRN (Reason: Anxiety) Qty: 14 0RF Did you review [place] [employer] for ALL controlled substances?: Yes Discussed opioids are addictive and Narcan is available by prescription or from pharmacy.: No Condition: Good
[2024-01-07] MEDS: ROCEPHIN 1 GM VIAL IM ONE (09:41)
[2024-01-07] MEDS: LIDOCAINE 1% 5 ML SDV IM ONE (09:42)
[2024-01-07 10:13] VITALS: BP 136/80; PULSE 75; TEMP 98.7
== END 2024-01-07 11:36 | disposition home or self-care (01) ==
LOC: MEDSURG B 08:45 → ED 08:45 → MEDSURG B 12:10
PROVIDERS: ADMIT Hospitalist; ATTEND Nurse Practitioner Family
DX: K21.9 Gastro-esophageal reflux disease without esophagitis; E78.5 Hyperlipidemia, unspecified; I10 Essential (primary) hypertension; Z20.822 Contact with and (suspected) exposure to COVID-19; J44.1 Chronic obstructive pulmonary disease with (acute) exacerbation; C34.92 Malignant neoplasm of unspecified part of left bronchus or lung; J96.20 Acute and chronic respiratory failure, unspecified whether with hypoxia or hypercapnia

== ENCOUNTER 2024-02-25 11:47 | Inpatient (IN) ==
--- NOTE | 2024-02-25 12:02 | ED.PDOC ---
General ED Provider: Dr. PASTORA CAMPBELL DO Chief Complaint: Shortness of Air Stated Complaint: Patient is a 73 yo F here for sob Patient has a PMHX of smoking, lung cancer - not active for 2.5 years, obesity, HTN Patient afebrile and vitally stable at rest, spo2 88% on 4 L baseline nasal canula She reports she has felt more sob for the last 4 days Last admission for COPD and hypoxia in 12/2023 Patient alert and oriented x4 GCS 15 Speaking in 5-6 word sentences Obvious wheezes She denies arm pain, she denies hemoptysis No chest pain unless coughing No falls or injuries No recent surgeries Children at bedside Patietn amenable to tx and work up Time Seen by Provider: 02/25/24 11:56 Primary Care Provider: LUL YOO Nursing and Triage Documentation Reviewed and Agree: Yes What is Opioid Naive?: *Opioid Naive implies the patient is not already taking opioids or not chronically receiving opioids on a daily basis. *PRN dosing is not "usually" associated with tolerance. *Patients are at higher risk of over-sedation and aspiration. What is Opioid Tolerant?: *Opioid Tolerance implies less than the expected response to an opioid. *Acquired tolerance is defined by the patient taking 60mg of oral morphine daily (or equianalgesic dose of another opioid) for 1 week or more. *Often associated with chronic pain. *May take more than usual dose to achieve desired pain control. Review of Systems Review Of Systems Constitutional: Reports Weakness; Denies Chills or Fever Eyes: Denies Blindness or Vision change Ears, Nose, Mouth, Throat: Denies Ear pain, Nose pain or Throat pain Respiratory: Reports Cough, Shortness of Breath and Wheezing Cardiac: Reports Chest pain (with cough); Denies Palpitations GI: Denies Abdominal pain, Constipated or Diarrhea : Denies Burning or Discharge Musculoskeletal: Denies Back pain or Joint pain Skin: Denies Bruising or Rash Neurological: Denies Anxiety or Depressed Endocrine: Reports No symptoms Hematologic/Lymphatic: Reports No symptoms All Other Systems: Reviewed and Negative [facility] Medical History Cancer of lung C34.90 - Malignant neoplasm of unspecified part of unspecified bronchus or lung (ICD-10) Gastroesophageal reflux disease K21.9 - Gastro-esophageal reflux disease without esophagitis (ICD-10) Chronic obstructive pulmonary disease J44.9 - Chronic obstructive pulmonary disease, unspecified (ICD-10) Heart disease I51.9 - Heart disease, unspecified (ICD-10) Elevated cholesterol E78.00 - Pure hypercholesterolemia, unspecified (ICD-10) History of seasonal allergies Z88.9 - Allergy status to unspecified drugs, medicaments and biological substances status (ICD-10) Family History Mother Elevated cholesterol Seasonal allergies Cardiac disease Anesthesia complication Cerebrovascular accident Hypertension FATHER Seasonal allergies BROTHER Seasonal allergies MATERNAL GRANDMOTHER Seasonal allergies MATERNAL GRANDFATHER Seasonal allergies PATERNAL GRANDMOTHER Seasonal allergies PATERNAL GRANDFATHER Seasonal allergies Social History Smoking and tobacco status: Former smoker Surgical History tracheotomy Permacath Status post cholecystectomy Z90.49 - Acquired absence of other specified parts of digestive tract (ICD- 10) Status post appendectomy Z90.49 - Acquired absence of other specified parts of digestive tract (ICD- 10) Female Reproductive History Menstrual Hx Hysterectomy: No Hx Tubal Ligation: No Physical Exam Physical Exam Appearance: Reports Well-appearing, Well-nourished and Obese Ill-appearing: Mild Pain Distress: Not Applicable Eyes: Reports KAYLYN, EOMI and Conjunctiva clear ENT: Reports Ears normal, Nose normal and Oropharynx normal Neck: Supple Respiratory: Reports Airway patent, Breath sounds clear and Wheezes; Denies Airway obstructed, Crackles, Rhonchi or Retractions Cardiovascular: Reports RRR and Pulses normal GI/: Reports Soft and Nontender Musculoskeletal: Reports Normal strength and ROM intact Skin: Reports Warm and Dry Neurological: Reports Sensation intact and Motor intact Psychiatric: Reports Affect appropriate and Mood appropriate Interpretation EKG Interpretation EKG Interpretation By: ED Physician Time of EKG #1: 12:49 Interpretation: sinus tach rate 101 no stemi qt grossly normal Course Course 02/25/24 12:06 02/25/24 12:06 Orders, Labs, Meds: Lab Review 02/25/24 02/25/24 02/25/24 12:06 12:37 12:46 WBC 8.58 RBC 4.03 L Hgb 12.4 Hct 41.3 MCV 102.5 H MCH 30.8 MCHC 30.0 L RDW Coeff of Romain 12.4 Plt Count 205 Immature Gran % (Auto) 0.6 Neut % (Auto) 84.1 H Lymph % (Auto) 4.9 L [place] % (Auto) 10.1 H Eos % (Auto) 0.1 Baso % (Auto) 0.2 Neut # (Auto) 7.2 H Lymph # (Auto) 0.4 L [place] # (Auto) 0.9 Eos # (Auto) 0.0 Baso # (Auto) 0.0 Immature Gran # (Auto) 0.1 Puncture Site Rbrach Base Excess 16.7 H O2 Saturation 91.4 L ABG pH 7.40 ABG pCO2 67.0 H ABG pO2 62.0 L ABG HCO3 41.5 H ABG Total CO2 43.6 H [place] Test Na Hemoglobin 1.1 Oxyhemoglobin 91.7 L Carboxyhemoglobin 1.9 H Total Hemoglobin 12.2 O2 Delivery Device Cannula Oxygen Liter Flow 4.00 FiO2 % Sodium 137.2 Potassium 3.99 Chloride 97.3 L Carbon Dioxide 39.8 H Anion Gap 4.09 BUN 16.0 Creatinine 0.61 Estimated GFR (MDRD) 97.00 BUN/Creatinine Ratio 26.22 Glucose 104.7 Lactic Acid 0.93 Calcium 9.29 Total Bilirubin 1.01 AST 23.5 ALT 20.3 Alkaline Phosphatase 82.8 Troponin I < 0.012 NT-Pro-B Natriuret Pep 247 Total Protein 6.95 Albumin 3.65 Globulin 3.30 Albumin/Globulin Ratio 1.10 Influ A Molecular Assay Negative by naat Influ B Molecular Assay Negative by naat RSV Antigen Negative by naat SARS CoV-2 RNA Rapid JASBIR Negative 02/25/24 13:45 WBC RBC Hgb Hct MCV MCH MCHC RDW Coeff of Romain Plt Count Immature Gran % (Auto) Neut % (Auto) Lymph % (Auto) [place] % (Auto) Eos % (Auto) Baso % (Auto) Neut # (Auto) Lymph # (Auto) [place] # (Auto) Eos # (Auto) Baso # (Auto) Immature Gran # (Auto) Puncture Site Lbrach Base Excess 12.9 H O2 Saturation 94.2 ABG pH 7.37 ABG pCO2 66.0 H ABG pO2 74.0 L ABG HCO3 38.2 H ABG Total CO2 40.2 H [place] Test N/a Hemoglobin 1.2 Oxyhemoglobin 94.0 L Carboxyhemoglobin 1.9 H Total Hemoglobin 15.2 O2 Delivery Device Bipap Oxygen Liter Flow FiO2 % 40.0 Sodium Potassium Chloride Carbon Dioxide Anion Gap BUN Creatinine Estimated GFR (MDRD) BUN/Creatinine Ratio Glucose Lactic Acid Calcium Total Bilirubin AST ALT Alkaline Phosphatase Troponin I NT-Pro-B Natriuret Pep Total Protein Albumin Globulin Albumin/Globulin Ratio Influ A Molecular Assay Influ B Molecular Assay RSV Antigen SARS CoV-2 RNA Rapid JASBIR Orders Category Date Time Status ADMIT PATIENT INPATIENT .TO SCU (MONITORED BED) ADMISSION 02/25/24 14:26 Active ABG DRAW REQUEST Stat CARDIO 02/25/24 12:38 Completed EKG-(ED ONLY) Stat CARDIO 02/25/24 11:56 Completed TELEMETRY MONITORING TELE CARE 02/25/24 14:26 Active ED APPLY O2 .ONCE EMERGENCY 02/25/24 11:56 Active ED DEV MANAGER APPLIED .ONCE EMERGENCY 02/25/24 11:56 Active ABG COOX Stat LAB 02/25/24 12:46 Completed ABG COOX Stat LAB 02/25/24 13:45 Completed CBC W/ AUTO DIFF Stat LAB 02/25/24 12:06 Completed COMPREHENSIVE METABOLIC PANEL Stat LAB 02/25/24 12:06 Completed FLU A/B MOLECULAR Stat LAB 02/25/24 12:37 Completed LACTIC ACID Stat LAB 02/25/24 12:06 Completed NT-PROBNP(ED) Stat LAB 02/25/24 12:06 Completed RSV Stat LAB 02/25/24 12:37 Completed SARS COV-2 RNA RAPID JASBIR Stat LAB 02/25/24 12:37 Completed TROPONIN I Stat LAB 02/25/24 12:06 Completed Ipratropium/Albuterol Neb [Duoneb] Meds 02/25/24 11:56 Discontinued 3 ml NEB ONCE ONE Ipratropium/Albuterol Neb [Duoneb] Meds 02/25/24 12:59 Discontinued 3 ml NEB ONCE ONE Lorazepam [Ativan] Meds 02/25/24 13:07 Discontinued 0.5 mg IVP ONCE ONE Lorazepam [Ativan] Meds 02/25/24 14:17 Discontinued 0.5 mg IVP ONCE ONE Methylprednisolone Sod Succ/Pf [Solu-Medrol 125 mg] Meds 02/25/24 11:56 Discontinued 125 mg IVP ONCE ONE CHEST, 1V AP ONLY Stat RADS 02/25/24 13:35 Completed Medications Generic Name Dose Route Start Last Admin Trade Name Freq PRN Reason Stop Dose Admin Acetaminophen 650 mg 02/25/24 14:47 Acetaminophen 325 Mg Tablet PO Q4H PRN Mild Pain Hydrocodone Bitart/Acetaminophen 1 tab 02/25/24 15:24 Hydrocodone Bit/Acetaminophen 5/325 Mg Tablet PO Q6H PRN MODERATE PAIN Albuterol Sulfate 2 puff 02/25/24 15:24 Albuterol Sulfate 8 Gm Inhaler IH Q6H PRN Wheezing Albuterol/Ipratropium 3 ml 02/25/24 18:00 02/25/24 18:15 Ipratropium/Albuterol Vial.Neb NEB 3 ml RTQ4H NNAMDI Administration Alprazolam 1 mg 02/25/24 15:24 02/25/24 18:00 Alprazolam 0.5 Mg Tablet PO 1 mg BID PRN Administration Anxiety Aspirin 81 mg 02/25/24 15:30 02/25/24 18:06 Aspirin 81 Mg Tablet. PO 81 mg DAILYWM2 NNAMDI Administration Atorvastatin Calcium 10 mg 02/25/24 21:00 Atorvastatin Calcium 10 Mg Tablet PO BEDTIME NNAMDI Budesonide/Formoterol Fumarate 2 puff 02/25/24 21:00 Budesonide/Formoterol Fumarate 160/4.5 Mcg Inhaler IH BID NNAMDI Bupropion HCl 75 mg 02/25/24 15:30 02/25/24 17:59 Bupropion Hcl 75 Mg Tablet PO 75 mg BID NNAMDI Administration Diltiazem HCl 60 mg 02/25/24 15:30 02/25/24 18:00 Diltiazem Hcl 60 Mg Tablet PO 60 mg TID NNAMDI Administration Enoxaparin Sodium 40 mg 02/26/24 09:00 Enoxaparin Sodium 40 Mg/0.4 Ml Syr SUBCUT DAILY [facility] Ergocalciferol 50,000 unit 03/02/24 09:00 Ergocalciferol (Vitamin D2) 50,000 Unit Capsule PO WEEKLY NNAMDI Guaifenesin 600 mg 02/25/24 15:30 02/25/24 18:00 Guaifenesin 600 Mg Tablet.Er PO 600 mg BID NNAMDI Administration CEFTRIAXONE/D5W 1 GM PREMIX 1 gm in 50 mls @ 100 mls/hr 02/25/24 14:50 02/25/24 16:48 Rocephin 1 Gm/50 Ml D5w IV 02/28/24 14:49 100 mls/hr DAILY NNAMDI Administration Doxycycline Hyclate 100 mg/ 100 mls @ 50 mls/hr 02/25/24 15:00 02/25/24 17:48 Sodium Chloride IV 02/28/24 14:59 50 mls/hr Q12HR NNAMDI Administration Methylprednisolone Sodium Succinate 40 mg 02/25/24 21:00 Methylprednisolone Sod Succ/Pf 40 Mg/Ml Vial IVP Q8HR NNAMDI Metoprolol Tartrate 25 mg 02/25/24 15:30 02/25/24 18:00 Metoprolol Tartrate 25 Mg Tablet PO 25 mg BID NNAMDI Administration Naproxen 250 mg 02/25/24 15:50 Naproxen 250 Mg Tablet PO Q12H PRN MODERATE PAIN Ondansetron HCl 4 mg 02/25/24 14:47 Ondansetron Hcl/Pf 4 Mg/2 Ml Sdv IVP Q6H PRN Nausea / Vomiting Pantoprazole Sodium 40 mg 02/25/24 16:00 02/25/24 18:09 Pantoprazole Sodium 40 Mg Tablet.Dr PO 40 mg QDAC2 NNAMDI Administration Sodium Chloride 1 syr 02/25/24 21:00 0.9% Sodium Chloride 10 Ml Disp.Syrin IVF Q8HR NNAMDI Trazodone HCl 50 mg 02/25/24 21:00 Trazodone Hcl 50 Mg Tablet PO BEDTIME NNAMDI Discontinued Medications Generic Name Dose Route Start Last Admin Trade Name Freq PRN Reason Stop Dose Admin Albuterol/Ipratropium 3 ml 02/25/24 11:56 02/25/24 12:58 Ipratropium/Albuterol Vial.[facility]Byanna [facility] 02/25/24 11:57 3 ml ONCE ONE Administration Albuterol/Ipratropium 3 ml 02/25/24 12:59 02/25/24 14:34 Ipratropium/Albuterol Vial.Bryanna GUERRERO 02/25/24 13:00 3 ml ONCE ONE Administration Albuterol/Ipratropium 3 ml 02/25/24 18:00 Ipratropium/Albuterol Vial.[facility] RTQ6H NNAMDI Lorazepam 0.5 mg 02/25/24 13:07 02/25/24 13:12 Lorazepam Inj 2 Mg/Ml Vial IVP 02/25/24 13:08 0.5 mg ONCE ONE Administration Lorazepam 0.5 mg 02/25/24 14:17 02/25/24 14:23 Lorazepam Inj 2 Mg/Ml Vial IVP 02/25/24 14:18 0.5 mg ONCE ONE Administration Methylprednisolone Sodium Succinate 125 mg 02/25/24 11:56 02/25/24 12:46 Methylprednisolone Sod Succ/Pf 125 Mg/2 Ml Vial IVP 02/25/24 11:57 125 mg ONCE ONE Administration Vital Signs: Temp Pulse Resp BP Pulse Ox 02/25/24 14:00 94 L 02/25/24 13:00 95 02/25/24 11:53 97.8 F 109 H 20 141/92 H 88 L starting bipap 10/28 MDM: patient is a 73 yo F here for sob Patient afebrile and vitally stable Exam concerning for COPD exacerbation 3+ labs and 2 image results reviewed by me Consulted hospitalist who agrees to admission WDX: COPD exacerbation, hypoxia, hypercarbia cough acute high complexity DDX: I considered stemi, shock, sepsis but these were not found Patient treated with bipap and admitted We discussed plan and findings Patient agrees SDOH: Patient has PCP and family support Family also agrees with plan Discharge Plan Discharge Patient Disposition: ADMITTED INPATIENT Discharge Problem: Cough, Hypercarbia, Hypoxia, Acute exacerbation of chronic obstructive pulmonary disease Did you review [place] [employer] for ALL controlled substances?: Not Applicable ED Provider: PASTORA CAMPBELL Condition: Stable Physician Progress Note: []
[2024-02-25 12:11] LABS: BASOPHILS % (AUTO) 0.2 % (0.0-3.0); EOSINOPHILS % (AUTO) 0.1 % (0.0-7.0); HEMATOCRIT 41.3 % (37.0-47.0); HEMOGLOBIN 12.4 g/dl (12.0-16.0); IMMATURE GRANULOCYTE # (AUTO) 0.1 (0.0-1.0); IMMATURE GRANULOCYTE % (AUTO) 0.6 % (0.0-5.0); LYMPHOCYTES # (AUTO) 0.4 K/uL (0.60-3.4); LYMPHOCYTES % (AUTO) 4.9 (10.0-50.0); MEAN CORPUSCULAR HEMOGLOBIN 30.8 pg (27.0-31.0); MEAN CORPUSCULAR VOLUME 102.5 fl (81.0-99.0); MONOCYTES # (AUTO) 0.9 K/uL (0.4-2.0); MONOCYTES % (AUTO) 10.1 (0-10); NEUTROPHILS # (AUTO) 7.2 K/ul (2.0-6.9); NEUTROPHILS % (AUTO) 84.1 % (42.2-75.2); PLATELET COUNT 205 10^3/uL (140-440); RDW COEFFICIENT OF VARIATION 12.4 % (11.6-14.8); RED BLOOD COUNT 4.03 10^6/ul (4.20-5.40); WHITE BLOOD COUNT 8.58 K/ul (4.6-10.2)
[2024-02-25 12:23] LABS: ALANINE AMINOTRANSFERASE 20.3 U/L (0-35); ALBUMIN 3.65 g/dL (3.5-5.0); ALKALINE PHOSPHATASE 82.8 U/L (53-141); ASPARTATE AMINO TRANSFERASE 23.5 U/L (14-36); BILIRUBIN,TOTAL 1.01 mg/dL (0.2-1.3); CALCIUM 9.29 mg/dL (8.4-10.2); CARBON DIOXIDE 39.8 mmol/L (22-30.0); CHLORIDE 97.3 mmol/L (98-107); CREATININE 0.61 mg/dL (0.60-1.30); GLUCOSE 104.7 mg/dL (74-106); POTASSIUM 3.99 mmol/L (3.5-5.1); SODIUM 137.2 mmol/L (134.5-145); TOTAL PROTEIN 6.95 g/dL (6.3-8.2)
[2024-02-25 12:35] LABS: TROPONIN I < 0.012 ng/ml (0.0000-0.120)
[2024-02-25] MEDS: SOLU-MEDROL 125 MG IVP ONE (12:46)
[2024-02-25 12:50] LABS: ABG O2 HGB 91.7 % (95-100); BEecf 16.7 (-2.0-3.0); COHb 1.9 (0.5-1.5); HCO3 41.5 (21-28); MetHb 1.1 (0-1.5); TCO2 43.6 (19-24); sO2 91.4 % (94-98); tHb 12.2 g/dl (11.7-17.4)
[2024-02-25] MEDS: DUONEB NEB ONE ×2 (12:58→14:34)
[2024-02-25 13:03] LABS: SARS COV-2 RNA RAPID NAAT NEGATIVE (NEGATIVE)
[2024-02-25 13:06] LABS: MOLECULAR FLU A NEGATIVE BY NAAT (NEGATIVE); MOLECULAR FLU B NEGATIVE BY NAAT (NEGATIVE); RSV MOLECULAR NEGATIVE BY NAAT (NEGATIVE)
[2024-02-25] MEDS: ATIVAN IVP ONE ×2 (13:12→14:23)
--- NOTE | 2024-02-25 14:05 | DI ---
EXAM: CHEST RADIOGRAPH TECHNIQUE: Single frontal chest radiograph. COMPARISON: 01/05/2014 HISTORY: The shortness of air FINDINGS: The heart, mediastinum, and left chest port are unchanged. The lungs and pleural spaces are stable wi th bilateral mid to lower lung zone pulmonary opacification. No pneumothorax. No acute abnormality of the bones or soft tissues is identified. IMPRESSION: Stable exam with the bilateral mid to lower lung zone pulmonary disease.
[2024-02-25 14:19] LABS: ABG PH 7.37 (7.35-7.45); BEecf 12.9 (-2.0-3.0); COHb 1.9 (0.5-1.5); HCO3 38.2 (21-28); MetHb 1.2 (0-1.5); TCO2 40.2 (19-24); sO2 94.2 % (94-98); tHb 15.2 g/dl (11.7-17.4)
--- NOTE | 2024-02-25 14:44 | PCM ---
Date of Service Date Seen by Provider: 02/25/24 Time Seen by Provider: 14:30 Admit Day/Time Admission Date: 02/25/24 Admission Time: 14:26 Reason for Admission Chief Complaint: COPD EXACERBATION Hospital Provider Hospital Provider: ROXANNA WILLS PA-C, [facility] [place] Primary Care Physician Primary Care Physician: LUL YOO History of Present Illness History of Present Illness: Patient is a 73 year old female from home with pmhx of COPD with chronic respiratory failure on 4L, hyperlipidemia, GERD, anxiety, history of squamous cell carcinoma of left lung who presents to ER with worsening SOB over the last few days. She states she actually felt worse yesterday. Has a cough. Was noted to be in the 80s on her baseline 4L in the ER. She was placed on bipap due to her work of breathing at 12/6, then changed to 16/6. CXR negative, labs overall unremarkable. She was given solumedrol 125 and ativan. Will admit to med surg. ROS limited as patient is on bipap while evaluating Case Discussed With Case Discussed With: Patient's case was discussed with the ER Physicians, Dr. Anne. [facility] Medical History Cancer of lung C34.90 - Malignant neoplasm of unspecified part of unspecified bronchus or lung (ICD-10) Gastroesophageal reflux disease K21.9 - Gastro-esophageal reflux disease without esophagitis (ICD-10) Chronic obstructive pulmonary disease J44.9 - Chronic obstructive pulmonary disease, unspecified (ICD-10) Heart disease I51.9 - Heart disease, unspecified (ICD-10) Elevated cholesterol E78.00 - Pure hypercholesterolemia, unspecified (ICD-10) History of seasonal allergies Z88.9 - Allergy status to unspecified drugs, medicaments and biological substances status (ICD-10) Surgical History tracheotomy Permacath Status post cholecystectomy Z90.49 - Acquired absence of other specified parts of digestive tract (ICD- 10) Status post appendectomy Z90.49 - Acquired absence of other specified parts of digestive tract (ICD- 10) Family History Mother Elevated cholesterol Seasonal allergies Cardiac disease Anesthesia complication Cerebrovascular accident Hypertension FATHER Seasonal allergies BROTHER Seasonal allergies MATERNAL GRANDMOTHER Seasonal allergies MATERNAL GRANDFATHER Seasonal allergies PATERNAL GRANDMOTHER Seasonal allergies PATERNAL GRANDFATHER Seasonal allergies Social History Smoking and tobacco status: Former smoker Allergies Allergies Allergy/AdvReac Type Severity Reaction Status Date / Time ibuprofen [From Advil] AdvReac Rash Verified 02/25/24 14:40 oxycodone HCl AdvReac HALLUCINATI Verified 02/25/24 14:40 [From OxyContin] ONS Current Medications Home Medications albuterol sulfate 90 mcg/actuation aerosol inhaler (ProAir HFA) 2 puff inhalation Q6H PRN Bronchospasm 11/08/13 [History Confirmed 02/25/24 Last Taken 11/08/13] aspirin 81 mg tablet,delayed release 81 mg PO DAILYWM 11/08/13 [History Confirmed 02/25/24 Last Taken 11/08/13] atorvastatin 10 mg tablet (Lipitor) 10 mg PO DAILY 11/08/13 [History Confirmed 02/25/24 Last Taken 03/28/18] bupropion HCl 75 mg tablet 75 mg PO BID 11/08/13 [History Confirmed 02/25/24 Last Taken 03/29/18] diltiazem HCl 60 mg tablet 60 mg PO TID 11/08/13 [History Confirmed 02/25/24 Last Taken 03/29/18] guaifenesin 600 mg tablet, extended release 12 hr (Mucinex) 600 mg PO BID 11/08/13 [History Confirmed 02/25/24 Last Taken 11/08/13] naproxen sodium 220 mg tablet (Aleve) 220 mg PO Q12H PRN pain 05/19/15 [History Confirmed 02/25/24 Last Taken Unknown] ergocalciferol (vitamin D2) 1,250 mcg (50,000 unit) capsule (Vitamin D2) 50,000 unit PO WEEKLY 03/29/18 [History Confirmed 02/25/24 Last Taken Unknown] ipratropium 0.5 mg-albuterol 3 mg (2.5 mg base)/3 mL nebulization soln 1 vial NEB RTQ6H 03/29/18 [History Confirmed 02/25/24 Last Taken Unknown] trazodone 50 mg tablet 50 mg PO BEDTIME 03/29/18 [History Confirmed 02/25/24 Last Taken 03/28/18] hydrocodone 5 mg-acetaminophen 325 mg tablet 1 tab PO Q6H PRN Analgesia 03/07/21 [History Confirmed 02/25/24 Last Taken Unknown] esomeprazole magnesium 40 mg capsule,delayed release (Nexium) 40 mg PO DAILY 01/05/24 [History Confirmed 02/25/24 Last Taken Unknown] fluticasone 250 mcg-salmeterol 50 mcg/dose blistr powdr for inhalation 1 inh inhalation BID 01/05/24 [History Confirmed 02/25/24 Last Taken Unknown] metoprolol tartrate 25 mg tablet 25 mg PO BID 01/05/24 [History Confirmed 02/25/24 Last Taken Unknown] alprazolam 0.5 mg tablet 1 mg (2 x 0.5 mg) PO BID PRN Anxiety #14 tabs 01/07/24 [Rx Confirmed 02/25/24 Last Taken Unknown] cephalexin 500 mg capsule 500 mg PO BID #14 caps 01/07/24 [Rx Confirmed 02/25/24 Last Taken Unknown] methylprednisolone 4 mg tablets in a dose pack (Medrol (Chidi)) See Rx Instructions PO .COMPLEX #21 ea 01/07/24 [Rx Confirmed 02/25/24 Last Taken Unknown] Home Acetaminophen (Acetaminophen 325 Mg Tablet) 650 mg PO Q4H PRN PRN Reason: Mild Pain CEFTRIAXONE/D5W 1 GM PREMIX (Rocephin 1 Gm/50 Ml D5w) 1 gm in 50 mls @ 100 mls/hr IV DAILY NNAMDI Stop: 02/28/24 14:49 Doxycycline Hyclate 100 mg/ (Sodium Chloride) 100 mls @ 50 mls/hr IV Q12HR NNAMDI Stop: 02/28/24 14:59 Methylprednisolone Sodium Succinate (Methylprednisolone Sod Succ/Pf 40 Mg/Ml Vial) 40 mg IVP Q8HR NNAMDI Ondansetron HCl (Ondansetron Hcl/Pf 4 Mg/2 Ml Sdv) 4 mg IVP Q6H PRN PRN Reason: Nausea / Vomiting Discontinued Medications Albuterol/Ipratropium (Ipratropium/Albuterol Vial.Neb) 3 ml NEB ONCE ONE Stop: 02/25/24 11:57 Last Admin: 02/25/24 12:58 Dose: 3 ml Albuterol/Ipratropium (Ipratropium/Albuterol Vial.Neb) 3 ml NEB ONCE ONE Stop: 02/25/24 13:00 Last Admin: 02/25/24 14:42 Dose: 3 ml Lorazepam (Lorazepam Inj 2 Mg/Ml Vial) 0.5 mg IVP ONCE ONE Stop: 02/25/24 13:08 Last Admin: 02/25/24 13:12 Dose: 0.5 mg Lorazepam (Lorazepam Inj 2 Mg/Ml Vial) 0.5 mg IVP ONCE ONE Stop: 02/25/24 14:18 Last Admin: 02/25/24 14:23 Dose: 0.5 mg Methylprednisolone Sodium Succinate (Methylprednisolone Sod Succ/Pf 125 Mg/2 Ml Vial) 125 mg IVP ONCE ONE Stop: 02/25/24 11:57 Last Admin: 02/25/24 12:46 Dose: 125 mg Opioid Naive vs. Tolerant Does Patient Take Opioids?: No Is Patient Opioid Naive?: Yes What is Opioid Naive?: *Opioid Naive implies the patient is not already taking opioids or not chronically receiving opioids on a daily basis. *PRN dosing is not "usually" associated with tolerance. *Patients are at higher risk of over-sedation and aspiration. Is Patient Opioid Tolerant?: No What is Opioid Tolerant?: *Opioid Tolerance implies less than the expected response to an opioid. *Acquired tolerance is defined by the patient taking 60mg of oral morphine daily (or equianalgesic dose of another opioid) for 1 week or more. *Often associated with chronic pain. *May take more than usual dose to achieve desired pain control. Review of Systems Constitutional: Reports Fatigue and Weakness Head: Reports Normocephalic and Atraumatic Respiratory: Reports Cough and Shortness of air Gastrointestinal: Denies Nausea, Vomiting, Diarrhea, Abdominal pain or Melena Physical examination Most Recent Vital Signs: Most Recent Vital Signs Temperature 97.8 F 02/25/24 11:53 Temperature Source Infrared 02/25/24 11:53 Pulse Rate 107 H 02/25/24 14:43 Respiratory Rate 20 02/25/24 11:53 Blood Pressure 202/145 H 02/25/24 14:43 O2 Sat by Pulse Oximetry 95 02/25/24 14:43 Fraction of Inspired Oxygen (FIO2) 40 02/25/24 14:00 Height 5 ft 5 in 02/25/24 11:53 Weight 280 lb 10.375 oz 02/25/24 11:53 Telemetry Heart Rate 85 01/07/24 07:00 Telemetry SPO2 93 01/07/24 01:00 Appearance: Positive Alert and Oriented x3, Obese and Other (+wearing bipap) Skin: Positive [place], Warm and Good Turgor HEENT: Positive Normocephalic and Atraumatic Neck: Positive Supple and Midline Trachea Chest/Lungs: Positive Symmetrical With Equal Breath Sounds and Wheezes (mild, khadar, difficult to auscultate due to body habitus. Able to complete sentences. Oriented. ) Heart: Positive RRR GI/: Positive Soft, Nontender, Bowel Sounds Normal and No Distention Neurological: Positive Cranial Nerves Intact, Alert and Oriented Psychiatric: Positive Oriented x4, Appropriate Mood and Appropriate Affect Labs This Visit Labs This Visit: Labs This Visit 02/25/24 02/25/24 02/25/24 12:06 12:37 12:46 WBC 8.58 RBC 4.03 L Hgb 12.4 Hct 41.3 MCV 102.5 H MCH 30.8 MCHC 30.0 L RDW Coeff of Romain 12.4 Plt Count 205 Immature Gran % (Auto) 0.6 Neut % (Auto) 84.1 H Lymph % (Auto) 4.9 L [place] % (Auto) 10.1 H Eos % (Auto) 0.1 Baso % (Auto) 0.2 Neut # (Auto) 7.2 H Lymph # (Auto) 0.4 L [place] # (Auto) 0.9 Eos # (Auto) 0.0 Baso # (Auto) 0.0 Immature Gran # (Auto) 0.1 Puncture Site Rbrach Base Excess 16.7 H O2 Saturation 91.4 L ABG pH 7.40 ABG pCO2 67.0 H ABG pO2 62.0 L ABG HCO3 41.5 H ABG Total CO2 43.6 H [place] Test Na Hemoglobin 1.1 Oxyhemoglobin 91.7 L Carboxyhemoglobin 1.9 H Total Hemoglobin 12.2 O2 Delivery Device Cannula Oxygen Liter Flow 4.00 FiO2 % Sodium 137.2 Potassium 3.99 Chloride 97.3 L Carbon Dioxide 39.8 H Anion Gap 4.09 BUN 16.0 Creatinine 0.61 Estimated GFR (MDRD) 97.00 BUN/Creatinine Ratio 26.22 Glucose 104.7 Lactic Acid 0.93 Calcium 9.29 Total Bilirubin 1.01 AST 23.5 ALT 20.3 Alkaline Phosphatase 82.8 Troponin I < 0.012 NT-Pro-B Natriuret Pep 247 Total Protein 6.95 Albumin 3.65 Globulin 3.30 Albumin/Globulin Ratio 1.10 Influ A Molecular Assay Negative by naat Influ B Molecular Assay Negative by naat RSV Antigen Negative by naat SARS CoV-2 RNA Rapid JASBIR Negative 02/25/24 13:45 WBC RBC Hgb Hct MCV MCH MCHC RDW Coeff of Romain Plt Count Immature Gran % (Auto) Neut % (Auto) Lymph % (Auto) [place] % (Auto) Eos % (Auto) Baso % (Auto) Neut # (Auto) Lymph # (Auto) [place] # (Auto) Eos # (Auto) Baso # (Auto) Immature Gran # (Auto) Puncture Site Lbrach Base Excess 12.9 H O2 Saturation 94.2 ABG pH 7.37 ABG pCO2 66.0 H ABG pO2 74.0 L ABG HCO3 38.2 H ABG Total CO2 40.2 H [place] Test N/a Hemoglobin 1.2 Oxyhemoglobin 94.0 L Carboxyhemoglobin 1.9 H Total Hemoglobin 15.2 O2 Delivery Device Bipap Oxygen Liter Flow FiO2 % 40.0 Sodium Potassium Chloride Carbon Dioxide Anion Gap BUN Creatinine Estimated GFR (MDRD) BUN/Creatinine Ratio Glucose Lactic Acid Calcium Total Bilirubin AST ALT Alkaline Phosphatase Troponin I NT-Pro-B Natriuret Pep Total Protein Albumin Globulin Albumin/Globulin Ratio Influ A Molecular Assay Influ B Molecular Assay RSV Antigen SARS CoV-2 RNA Rapid JASBIR Imaging Imaging: EXAM: CHEST RADIOGRAPH TECHNIQUE: Single frontal chest radiograph. COMPARISON: 01/05/2014 HISTORY: The shortness of air FINDINGS: The heart, mediastinum, and left chest port are unchanged. The lungs and pleural spaces are stable with bilateral mid to lower lung zone pulmonary opacification. No pneumothorax. No acute abnormality of the bones or soft tissues is identified. IMPRESSION: Stable exam with the bilateral mid to lower lung zone pulmonary disease. Review Statement Review Statement: I have independently reviewed and interpreted the labs/EKGs/imaging that were ordered by the ER provider. I have reviewed all outside records that are available currently in our EMR including imaging/notes/labs from previous visits. Plan Plan: 1. Acute on Chronic Respiratory Failure in setting of COPD Exacerbation - Wean off bipap, abg looks more chronic. Steroids, nebs, rocephin and doxy 2. COPD exacerbation - see above plan 3. Hypertension - chronic, continue home medications 4. Hyperlipidemia - chronic, continue home medications 5. GERD - chronic, continue home medications 6. Squamous cell carcinoma of left lung - in remission, following with Dr. Castellon and Dr. De Dios DVT Prophylaxis: lovenox Time Spent: Greater than 80 minutes spent with patient, 50% of the time spent with this patient was devoted to counseling and coordination of care. [facility]annin minutes spent discussing advance care planning. FULL CODE Admit to: Inpatient Discussed Plan of Care with Dr. Nico Whyte.
[2024-02-25] MEDS ORDERED: ZOFRAN 4 MG/2 ML IVP PRN (14:47)
[2024-02-25] MEDS ORDERED: NORCO 5-325 PO PRN (15:24)
[2024-02-25] MEDS ORDERED: VENTOLIN HFA IH PRN (15:24)
[2024-02-25] MEDS ORDERED: NAPROXEN SODIUM 220 MG PO PRN (15:24)
[2024-02-25 15:28] VITALS: BMI 44.4
[2024-02-25] MEDS ORDERED: NON-FORMULARY MEDICATION (Fluticasone Propion-Salmeterol 250-50 mcg/dose blister with devi IH SCH (15:30)
[2024-02-25] MEDS ORDERED: NON-FORMULARY MEDICATION (Esomeprazole Magnesium [Nexium] 40 mg capsule,delayed release(DR PO SCH (15:30)
[2024-02-25] MEDS ORDERED: NAPROSYN PO PRN (15:50)
[2024-02-25] MEDS: ROCEPHIN 1 GM/50 ML D5W 1 GM/50 ML BAG IV SCH (16:48)
[2024-02-25] MEDS: DOXY-100 100 MG in SODIUM CHLORIDE 100ML 100 ML IV SCH (17:48)
[2024-02-25] MEDS: WELLBUTRIN PO SCH (17:59)
[2024-02-25] MEDS: LOPRESSOR PO SCH (18:00)
[2024-02-25] MEDS: XANAX PO PRN (18:00)
[2024-02-25] MEDS ORDERED: DUONEB NEB SCH (18:00)
[2024-02-25] MEDS: CARDIZEM PO SCH (18:00)
[2024-02-25] MEDS: MUCINEX PO SCH (18:00)
[2024-02-25] MEDS: ASPIRIN EC PO SCH (18:06)
[2024-02-25] MEDS: PROTONIX PO SCH (18:09)
[2024-02-25] MEDS: DUONEB NEB SCH (18:15)
[2024-02-25] MEDS: DESYREL PO SCH (20:44)
[2024-02-25] MEDS: SOLU-MEDROL 40 MG IVP SCH (20:44)
[2024-02-25] MEDS: SYMBICORT 160-4.5 MCG INHALER IH SCH (20:44)
[2024-02-25] MEDS: LIPITOR PO SCH (20:45)
[2024-02-26 05:51] LABS: BASOPHILS % (AUTO) 0.1 % (0.0-3.0); HEMATOCRIT 41.1 % (37.0-47.0); HEMOGLOBIN 12.4 g/dl (12.0-16.0); IMMATURE GRANULOCYTE # (AUTO) 0.1 (0.0-1.0); IMMATURE GRANULOCYTE % (AUTO) 1.2 % (0.0-5.0); LYMPHOCYTES # (AUTO) 0.3 K/uL (0.60-3.4); LYMPHOCYTES % (AUTO) 4.7 (10.0-50.0); MEAN CORPUSCULAR HEMOGLOBIN 30.8 pg (27.0-31.0); MEAN CORPUSCULAR HGB CONC 30.2 (31.8-35.4); MEAN CORPUSCULAR VOLUME 102.2 fl (81.0-99.0); MONOCYTES # (AUTO) 0.1 K/uL (0.4-2.0); MONOCYTES % (AUTO) 2.1 (0-10); NEUTROPHILS # (AUTO) 6.2 K/ul (2.0-6.9); NEUTROPHILS % (AUTO) 91.9 % (42.2-75.2); PLATELET COUNT 219 10^3/uL (140-440); RDW COEFFICIENT OF VARIATION 12.1 % (11.6-14.8); RED BLOOD COUNT 4.02 10^6/ul (4.20-5.40); WHITE BLOOD COUNT 6.76 K/ul (4.6-10.2)
[2024-02-26 06:11] LABS: ALANINE AMINOTRANSFERASE 21.6 U/L (0-35); ALBUMIN 3.41 g/dL (3.5-5.0); ALKALINE PHOSPHATASE 77.7 U/L (53-141); ASPARTATE AMINO TRANSFERASE 23.4 U/L (14-36); BILIRUBIN,TOTAL 0.63 mg/dL (0.2-1.3); BLOOD UREA NITROGEN 20.2 mg/dL (7-17); CALCIUM 9.2 mg/dL (8.4-10.2); CHLORIDE 97.6 mmol/L (98-107); CREATININE 0.55 mg/dL (0.60-1.30); GLUCOSE 158.2 mg/dL (74-106); POTASSIUM 4.8 mmol/L (3.5-5.1); SODIUM 138.2 mmol/L (134.5-145); TOTAL PROTEIN 6.57 g/dL (6.3-8.2)
[2024-02-26 06:17] LABS: CARBON DIOXIDE 34.8 mmol/L (22-30.0)
[2024-02-26] MEDS: TYLENOL PO PRN (08:24)
[2024-02-26] MEDS: LOVENOX SUBCUT SCH (08:26)
--- NOTE | 2024-02-26 12:02 | PCM.PROG ---
Date/Time Seen Date Seen by Provider: 02/26/24 Time Seen by Provider: 08:50 Provider Provider: [facility] Chief Complaint Chief Complaint: COPD EXACERBATION Subjective Subjective: Patient feeling better today but still having exertional dyspnea worse than her baseline. On 4L. Has not required bipap since yesterday. Has hx of intubation x5 and trach. In remission from lung cancer. Objective Appearance: Positive No Apparent Distress, Alert and Oriented x3 and Obese Chest/Lungs: Positive Symmetrical With Equal Breath Sounds and Wheezes (+improved) Heart: Positive RRR and Pulses Normal GI/: Positive Soft, Nontender, Bowel Sounds Normal and No Distention Neurological: Positive Cranial Nerves Intact, Alert and Oriented Vital Signs Vital Signs: Vital Signs: Last 24 Hours 02/25/24 13:00 02/25/24 14:00 02/25/24 14:43 Temperature Temperature Source Pulse Rate 107 H Pulse Rate [Apical] Respiratory Rate Blood Pressure 202/145 H Blood Pressure Mean Blood Pressure Left Arm Blood Pressure Location Blood Pressure Position O2 Sat by Pulse Oximetry 95 94 L 95 Oxygen Delivery Method Oxygen Flow Rate Fraction of Inspired Oxygen (FIO2) 40 40 Height Weight Telemetry Type Telemetry Monitoring Telemetry Heart Rate Telemetry SPO2 EKG UT Interval EKG QRS Interval Telemetry Strip Reading 02/25/24 15:07 02/25/24 15:07 02/25/24 15:14 Temperature 97.5 F L Temperature Source Temporal Artery Scan Pulse Rate 104 H Pulse Rate [Apical] Respiratory Rate 30 H 30 H Blood Pressure Blood Pressure Mean Blood Pressure Left Arm 124/84 Blood Pressure Location Blood Pressure Position Supine O2 Sat by Pulse Oximetry Oxygen Delivery Method Nasal Cannula Nasal Cannula Oxygen Flow Rate 4 4 Fraction of Inspired Oxygen (FIO2) 40 Height 5 ft 5 in Weight 267 lb Telemetry Type Telemetry Monitoring Telemetry Heart Rate Telemetry SPO2 EKG UT Interval EKG QRS Interval Telemetry Strip Reading 02/25/24 15:45 02/25/24 18:00 02/25/24 19:00 Temperature 98.1 F Temperature Source Temporal Artery Scan Pulse Rate 116 H Pulse Rate [Apical] Respiratory Rate 28 H Blood Pressure 141/79 H Blood Pressure Mean 99 Blood Pressure Left Arm Blood Pressure Location Left Arm Blood Pressure Position O2 Sat by Pulse Oximetry 90 L Oxygen Delivery Method Nasal Cannula Oxygen Flow Rate 4 Fraction of Inspired Oxygen (FIO2) Height Weight Telemetry Type Remote Telemetry Remote Telemetry Telemetry Monitoring Started Continues Telemetry Heart Rate 103 H 123 H Telemetry SPO2 90 L 89 L EKG UT Interval 0.14 0.11 L EKG QRS Interval 0.08 0.08 Telemetry Strip Reading Sinus Tachycardia Sinus Tachycardia 02/25/24 20:00 02/25/24 20:17 02/25/24 21:01 Temperature 97 F L Temperature Source Temporal Artery Scan Pulse Rate 99 Pulse Rate [Apical] Respiratory Rate 22 H 19 Blood Pressure 150/106 H Blood Pressure Mean 120 Blood Pressure Left Arm Blood Pressure Location Right Arm Blood Pressure Position O2 Sat by Pulse Oximetry 91 L 91 L Oxygen Delivery Method Nasal Cannula Nasal Cannula Room Air Oxygen Flow Rate 4 4 4 Fraction of Inspired Oxygen (FIO2) Height Weight Telemetry Type Telemetry Monitoring Telemetry Heart Rate Telemetry SPO2 EKG UT Interval EKG QRS Interval Telemetry Strip Reading 02/26/24 02:00 02/26/24 05:09 02/26/24 05:27 Temperature 97.1 F L Temperature Source Temporal Artery Scan Pulse Rate 92 91 Pulse Rate [Apical] Respiratory Rate 21 H Blood Pressure 139/83 Blood Pressure Mean 101 Blood Pressure Left Arm Blood Pressure Location Right Arm Blood Pressure Position Supine O2 Sat by Pulse Oximetry 94 L 92 L 90 L Oxygen Delivery Method Nasal Cannula Nasal Cannula Nasal Cannula Oxygen Flow Rate 4 4 4 Fraction of Inspired Oxygen (FIO2) Height Weight Telemetry Type Telemetry Monitoring Telemetry Heart Rate Telemetry SPO2 EKG UT Interval EKG QRS Interval Telemetry Strip Reading 02/26/24 07:00 02/26/24 07:48 02/26/24 10:00 Temperature 97.7 F Temperature Source Tympanic Pulse Rate 95 Pulse Rate [Apical] 102 H Respiratory Rate 22 H 18 Blood Pressure 114/80 Blood Pressure Mean 91 Blood Pressure Left Arm Blood Pressure Location Left Arm Blood Pressure Position Sitting O2 Sat by Pulse Oximetry 91 L Oxygen Delivery Method Nasal Cannula Nasal Cannula Oxygen Flow Rate 4 4 Fraction of Inspired Oxygen (FIO2) Height Weight Telemetry Type Remote Telemetry Telemetry Monitoring Telemetry Heart Rate 90 Telemetry SPO2 92 L EKG UT Interval EKG QRS Interval Telemetry Strip Reading Pt is refusing tele monitor; agreeable to wear spo2 probe . Lab Results Lab Results: Lab Results: Last 24 Hours 02/26/24 02/25/24 02/25/24 05:27 13:45 12:46 WBC 6.76 RBC 4.02 L Hgb 12.4 Hct 41.1 MCV 102.2 H MCH 30.8 MCHC 30.2 L RDW Coeff of Romain 12.1 Plt Count 219 Immature Gran % (Auto) 1.2 Neut % (Auto) 91.9 H Lymph % (Auto) 4.7 L [place] % (Auto) 2.1 Eos % (Auto) 0.0 Baso % (Auto) 0.1 Neut # (Auto) 6.2 Lymph # (Auto) 0.3 L [place] # (Auto) 0.1 L Eos # (Auto) 0.0 Baso # (Auto) 0.0 Immature Gran # (Auto) 0.1 Puncture Site Lbrach Rbrach Base Excess 12.9 H 16.7 H O2 Saturation 94.2 91.4 L ABG pH 7.37 7.40 ABG pCO2 66.0 H 67.0 H ABG pO2 74.0 L 62.0 L ABG HCO3 38.2 H 41.5 H ABG Total CO2 40.2 H 43.6 H [place] Test N/a Na Hemoglobin 1.2 1.1 Oxyhemoglobin 94.0 L 91.7 L Carboxyhemoglobin 1.9 H 1.9 H Total Hemoglobin 15.2 12.2 O2 Delivery Device Bipap Cannula Oxygen Liter Flow 4.00 FiO2 % 40.0 Sodium 138.2 Potassium 4.80 Chloride 97.6 L Carbon Dioxide 34.8 H Anion Gap 10.60 BUN 20.2 H Creatinine 0.55 L Estimated GFR (MDRD) 109.00 BUN/Creatinine Ratio 36.72 Glucose 158.2 H D Lactic Acid Calcium 9.20 Total Bilirubin 0.63 AST 23.4 ALT 21.6 Alkaline Phosphatase 77.7 Troponin I NT-Pro-B Natriuret Pep Total Protein 6.57 Albumin 3.41 L Globulin 3.16 Albumin/Globulin Ratio 1.07 Influ A Molecular Assay Influ B Molecular Assay RSV Antigen SARS CoV-2 RNA Rapid JASBIR 02/25/24 02/25/24 12:37 12:06 WBC 8.58 RBC 4.03 L Hgb 12.4 Hct 41.3 MCV 102.5 H MCH 30.8 MCHC 30.0 L RDW Coeff of Romain 12.4 Plt Count 205 Immature Gran % (Auto) 0.6 Neut % (Auto) 84.1 H Lymph % (Auto) 4.9 L [place] % (Auto) 10.1 H Eos % (Auto) 0.1 Baso % (Auto) 0.2 Neut # (Auto) 7.2 H Lymph # (Auto) 0.4 L [place] # (Auto) 0.9 Eos # (Auto) 0.0 Baso # (Auto) 0.0 Immature Gran # (Auto) 0.1 Puncture Site Base Excess O2 Saturation ABG pH ABG pCO2 ABG pO2 ABG HCO3 ABG Total CO2 W[place]o Test Hemoglobin Oxyhemoglobin Carboxyhemoglobin Total Hemoglobin O2 Delivery Device Oxygen Liter Flow FiO2 % Sodium 137.2 Potassium 3.99 Chloride 97.3 L Carbon Dioxide 39.8 H Anion Gap 4.09 BUN 16.0 Creatinine 0.61 Estimated GFR (MDRD) 97.00 BUN/Creatinine Ratio 26.22 Glucose 104.7 Lactic Acid 0.93 Calcium 9.29 Total Bilirubin 1.01 AST 23.5 ALT 20.3 Alkaline Phosphatase 82.8 Troponin I < 0.012 NT-Pro-B Natriuret Pep 247 Total Protein 6.95 Albumin 3.65 Globulin 3.30 Albumin/Globulin Ratio 1.10 Influ A Molecular Assay Negative by naat Influ B Molecular Assay Negative by naat RSV Antigen Negative by naat SARS CoV-2 RNA Rapid JASBIR Negative Additional Comments Additional Comments: I have independently reviewed and interpreted the labs/EKGs/imaging ordered during this hospital stay. I have reviewed outside records that are available in our EMR that pertain to medical stay including imaging/notes/labs from previous visits. Active Medications Active Medications: Medications Generic Name Dose Route Start Last Admin Trade Name Freq PRN Reason Stop Dose Admin Acetaminophen 650 mg 02/25/24 14:47 02/26/24 08:24 Acetaminophen 325 Mg Tablet PO 650 mg Q4H PRN Administration Mild Pain Hydrocodone Bitart/Acetaminophen 1 tab 02/25/24 15:24 Hydrocodone Bit/Acetaminophen 5/325 Mg Tablet PO Q6H PRN MODERATE PAIN Albuterol Sulfate 2 puff 02/25/24 15:24 Albuterol Sulfate 8 Gm Inhaler IH Q6H PRN Wheezing Albuterol/Ipratropium 3 ml 02/25/24 18:00 02/26/24 09:14 Ipratropium/Albuterol Vial.Neb NEB 3 ml RTQ4H NNAMDI Administration Alprazolam 1 mg 02/25/24 15:24 02/25/24 18:00 Alprazolam 0.5 Mg Tablet PO 1 mg BID PRN Administration Anxiety Aspirin 81 mg 02/25/24 15:30 02/26/24 08:24 Aspirin 81 Mg Tablet.Dr PO 81 mg DAILYWM2 NNAMDI Administration Atorvastatin Calcium 10 mg 02/25/24 21:00 02/25/24 20:45 Atorvastatin Calcium 10 Mg Tablet PO 10 mg BEDTIME NNAMDI Administration Budesonide/Formoterol Fumarate 2 puff 02/25/24 21:00 02/26/24 08:30 Budesonide/Formoterol Fumarate 160/4.5 Mcg Inhaler IH 2 puff BID NNAMDI Administration Bupropion HCl 75 mg 02/25/24 15:30 02/26/24 08:23 Bupropion Hcl 75 Mg Tablet PO 75 mg BID NNAMDI Administration Diltiazem HCl 60 mg 02/25/24 15:30 02/26/24 08:24 Diltiazem Hcl 60 Mg Tablet PO 60 mg TID NNAMDI Administration Enoxaparin Sodium 40 mg 02/26/24 09:00 02/26/24 08:26 Enoxaparin Sodium 40 Mg/0.4 Ml Syr SUBCUT 40 mg DAILY NNAMDI Administration Ergocalciferol 50,000 unit 03/02/24 09:00 Ergocalciferol (Vitamin D2) 50,000 Unit Capsule PO WEEKLY NNAMDI Guaifenesin 600 mg 02/25/24 15:30 02/26/24 08:23 Guaifenesin 600 Mg Tablet.Er PO 600 mg BID NNAMDI Administration CEFTRIAXONE/D5W 1 GM PREMIX 1 gm in 50 mls @ 100 mls/hr 02/25/24 14:50 02/26/24 09:10 Rocephin 1 Gm/50 Ml D5w IV 02/28/24 14:49 100 mls/hr DAILY NNAMDI Administration Doxycycline Hyclate 100 mg/ 100 mls @ 50 mls/hr 02/25/24 15:00 02/26/24 11:32 Sodium Chloride IV 02/28/24 14:59 50 mls/hr Q12HR NNAMDI Administration Methylprednisolone Sodium Succinate 40 mg 02/25/24 21:00 02/26/24 05:15 Methylprednisolone Sod Succ/Pf 40 Mg/Ml Vial IVP 40 mg Q8HR NNAMDI Administration Metoprolol Tartrate 25 mg 02/25/24 15:30 02/26/24 08:23 Metoprolol Tartrate 25 Mg Tablet PO 25 mg BID NNAMDI Administration Naproxen 250 mg 02/25/24 15:50 Naproxen 250 Mg Tablet PO Q12H PRN MODERATE PAIN Ondansetron HCl 4 mg 02/25/24 14:47 Ondansetron Hcl/Pf 4 Mg/2 Ml Sdv IVP Q6H PRN Nausea / Vomiting Pantoprazole Sodium 40 mg 02/25/24 16:00 02/26/24 05:15 Pantoprazole Sodium 40 Mg Tablet. PO 40 mg QDAC2 NNAMDI Administration Sodium Chloride 1 syr 02/25/24 21:00 02/26/24 05:15 0.9% Sodium Chloride 10 Ml Disp.Syrin IVF 1 syr Q8HR NNAMDI Administration Trazodone HCl 50 mg 02/25/24 21:00 02/25/24 20:44 Trazodone Hcl 50 Mg Tablet PO 50 mg BEDTIME NNAMDI Administration Plan Plan: 1. Acute on Chronic Respiratory Failure in setting of COPD Exacerbation - Off bipap, abg looks more chronic. Steroids, nebs, rocephin and doxy 2. COPD exacerbation - see above plan 3. Hypertension - chronic, continue home medications 4. Hyperlipidemia - chronic, continue home medications 5. GERD - chronic, continue home medications 6. Squamous cell carcinoma of left lung - in remission, following with Dr. Castellon and Dr. De Dios DVT: Lovenox Dispo: poss dc tomorrow Review Statement Review Statement: I have personally discussed and reviewed the patient's visit/currently labs/imaging/decision making with Dr. Whyte, my supervising attending. Greater that 50 minutes spent with patient, 50% of the time spent with this patient was devoted to counseling and coordination of care.
[2024-02-27 05:22] LABS: VBG HCO3 43.2 (22-26); VBG OXYGEN SATURATION 82.6 (60-80); VBG PH 7.34 (7.30-7.40)
[2024-02-27 05:50] LABS: BASOPHILS % (AUTO) 0.1 % (0.0-3.0); HEMATOCRIT 42.9 % (37.0-47.0); HEMOGLOBIN 12.9 g/dl (12.0-16.0); IMMATURE GRANULOCYTE # (AUTO) 0.1 (0.0-1.0); IMMATURE GRANULOCYTE % (AUTO) 0.8 % (0.0-5.0); LYMPHOCYTES # (AUTO) 0.3 K/uL (0.60-3.4); LYMPHOCYTES % (AUTO) 2.5 (10.0-50.0); MEAN CORPUSCULAR HEMOGLOBIN 30.7 pg (27.0-31.0); MEAN CORPUSCULAR HGB CONC 30.1 (31.8-35.4); MEAN CORPUSCULAR VOLUME 102.1 fl (81.0-99.0); MONOCYTES # (AUTO) 0.3 K/uL (0.4-2.0); MONOCYTES % (AUTO) 2.8 (0-10); NEUTROPHILS # (AUTO) 11.2 K/ul (2.0-6.9); NEUTROPHILS % (AUTO) 93.8 % (42.2-75.2); PLATELET COUNT 278 10^3/uL (140-440); RDW COEFFICIENT OF VARIATION 12.2 % (11.6-14.8)
[2024-02-27 06:01] LABS: WHITE BLOOD COUNT 11.96 K/ul (4.6-10.2)
[2024-02-27 06:03] LABS: ALANINE AMINOTRANSFERASE 22.8 U/L (0-35); ALBUMIN 3.48 g/dL (3.5-5.0); ASPARTATE AMINO TRANSFERASE 23.1 U/L (14-36); BILIRUBIN,TOTAL 0.47 mg/dL (0.2-1.3); BLOOD UREA NITROGEN 24.9 mg/dL (7-17); CALCIUM 9.32 mg/dL (8.4-10.2); CHLORIDE 97.1 mmol/L (98-107); CREATININE 0.65 mg/dL (0.60-1.30); GLUCOSE 150.9 mg/dL (74-106); POTASSIUM 4.67 mmol/L (3.5-5.1); SODIUM 137.8 mmol/L (134.5-145); TOTAL PROTEIN 6.5 g/dL (6.3-8.2)
[2024-02-27 06:10] LABS: CARBON DIOXIDE 37.4 mmol/L (22-30.0)
[2024-02-27 08:52] LABS: ABG O2 HGB 92.8 % (95-100); ABG PH 7.36 (7.35-7.45); BEecf 17.5 (-2.0-3.0); COHb 2.1 (0.5-1.5); HCO3 42.9 (21-28); TCO2 45.2 (19-24); sO2 93.6 % (94-98); tHb 12.7 g/dl (11.7-17.4)
--- NOTE | 2024-02-27 11:06 | PCM.PROG ---
Date/Time Seen Date Seen by Provider: 02/27/24 Time Seen by Provider: 08:30 Provider Provider: ROXANNA WILLS [facility]-C[facility] Chief Complaint Chief Complaint: COPD EXACERBATION Subjective Subjective: Patient feeling at baseline at rest, but having worse than usual dyspnea with exertion. Nursing staff reports she desaturated to 81% while ambulating to the bathroom on her normal 4L. There was some miscommunication this morning regarding a VBG order, and her pCO2 being mildly elevated from baseline, normal ph. Pt was placed on bipap. She wore it for 1-2 hours and it was removed as she states it's uncomfortable. Repeat ABG with improved pCO2. Discussed in detail with patient and daughter how she could potentially benefit from bipap at night due to her chronic respiratory failure, for which they could discuss with her rehabilitation coordinator. However at this time her ABG/VBGs have remained baseline for her,she has been compensated with normal ph, as well as her mentation clinically has been normal. So emergent placement of bipap has not been necessary. We will continue to monitor her for these red flags however. Objective Appearance: Positive No Apparent Distress, Alert and Oriented x3 and Obese Chest/Lungs: Positive Symmetrical With Equal Breath Sounds and Wheezes (+improved) Heart: Positive RRR and Pulses Normal GI/: Positive Soft, Nontender, Bowel Sounds Normal and No Distention Neurological: Positive Cranial Nerves Intact, Alert and Oriented Vital Signs Vital Signs: Vital Signs: Last 24 Hours 02/26/24 12:33 02/26/24 14:00 02/26/24 14:00 Temperature 97.5 F L Temperature Source Temporal Artery Scan Pulse Rate 93 Pulse Rate [Apical] Pulse Rate [Dorsalis Pedis] Respiratory Rate 20 Blood Pressure 127/76 Blood Pressure Mean 93 Blood Pressure Location Right Arm Blood Pressure Position Sitting O2 Sat by Pulse Oximetry 92 L Oxygen Delivery Method Nasal Cannula Nasal Cannula Oxygen Flow Rate 4 4 Fraction of Inspired Oxygen (FIO2) Telemetry Type Remote Telemetry Telemetry Monitoring Telemetry Heart Rate Telemetry SPO2 91 L EKG DC Interval EKG QRS Interval Telemetry Strip Reading refuses tele 02/26/24 15:32 02/26/24 17:08 02/26/24 19:00 Temperature 97.6 F Temperature Source Temporal Artery Scan Pulse Rate 98 Pulse Rate [Apical] Pulse Rate [Dorsalis Pedis] Respiratory Rate 18 Blood Pressure 129/79 Blood Pressure Mean 95 Blood Pressure Location Left Arm Blood Pressure Position Sitting O2 Sat by Pulse Oximetry 93 L Oxygen Delivery Method Nasal Cannula Oxygen Flow Rate 4 Fraction of Inspired Oxygen (FIO2) Telemetry Type Remote Telemetry Remote Telemetry Telemetry Monitoring Continues Telemetry Heart Rate 87 97 Telemetry SPO2 95 92 L EKG DC Interval 0.16 0.13 EKG QRS Interval 0.08 0.11 H Telemetry Strip Reading SR SR W/ BBB 02/26/24 19:12 02/26/24 20:00 02/26/24 21:16 Temperature 98.0 F Temperature Source Temporal Artery Scan Pulse Rate 107 H Pulse Rate [Apical] Pulse Rate [Dorsalis Pedis] Respiratory Rate 20 20 Blood Pressure 141/88 H Blood Pressure Mean 105 Blood Pressure Location Right Arm Blood Pressure Position Sitting O2 Sat by Pulse Oximetry 90 L Oxygen Delivery Method Nasal Cannula Nasal Cannula Nasal Cannula Oxygen Flow Rate 4 4 4 Fraction of Inspired Oxygen (FIO2) Telemetry Type Telemetry Monitoring Telemetry Heart Rate Telemetry SPO2 EKG DC Interval EKG QRS Interval Telemetry Strip Reading 02/27/24 01:00 02/27/24 01:46 02/27/24 05:17 Temperature 97.5 F L 97.7 F Temperature Source Temporal Artery Scan Temporal Artery Scan Pulse Rate 100 87 Pulse Rate [Apical] Pulse Rate [Dorsalis Pedis] Respiratory Rate 18 18 Blood Pressure 130/82 124/72 Blood Pressure Mean 98 89 Blood Pressure Location Right Arm Right Arm Blood Pressure Position Supine Supine O2 Sat by Pulse Oximetry 87 L 90 L Oxygen Delivery Method Room Air Nasal Cannula Oxygen Flow Rate 4 4 Fraction of Inspired Oxygen (FIO2) Telemetry Type Remote Telemetry Telemetry Monitoring Continues Telemetry Heart Rate 88 Telemetry SPO2 94 EKG DC Interval 0.14 EKG QRS Interval 0.09 Telemetry Strip Reading NSR 02/27/24 05:41 02/27/24 06:39 02/27/24 07:00 Temperature Temperature Source Pulse Rate Pulse Rate [Apical] Pulse Rate [Dorsalis Pedis] Respiratory Rate Blood Pressure Blood Pressure Mean Blood Pressure Location Blood Pressure Position O2 Sat by Pulse Oximetry 92 L 93 L Oxygen Delivery Method Nasal Cannula Oxygen Flow Rate 4 Fraction of Inspired Oxygen (FIO2) 40 Telemetry Type Remote Telemetry Telemetry Monitoring Continues Telemetry Heart Rate 78 Telemetry SPO2 95 EKG DC Interval 0.16 EKG QRS Interval 0.12 H Telemetry Strip Reading SR WITH BBB 02/27/24 08:00 02/27/24 09:50 02/27/24 10:00 Temperature 97.7 F Temperature Source Temporal Artery Scan Pulse Rate 81 Pulse Rate [Apical] 81 Pulse Rate [Dorsalis Pedis] 81 Respiratory Rate 20 20 Blood Pressure 121/75 Blood Pressure Mean 90 Blood Pressure Location Right Radial Artery Blood Pressure Position Sitting O2 Sat by Pulse Oximetry 90 L 92 L Oxygen Delivery Method Nasal Cannula Nasal Cannula Nasal Cannula Oxygen Flow Rate 4 4 4 Fraction of Inspired Oxygen (FIO2) Telemetry Type Telemetry Monitoring Telemetry Heart Rate Telemetry SPO2 EKG DC Interval EKG QRS Interval Telemetry Strip Reading Lab Results Lab Results: Lab Results: Last 24 Hours 02/27/24 02/27/24 02/27/24 08:49 05:09 05:06 WBC 11.96 H D RBC 4.20 Hgb 12.9 Hct 42.9 MCV 102.1 H MCH 30.7 MCHC 30.1 L RDW Coeff of Romain 12.2 Plt Count 278 Immature Gran % (Auto) 0.8 Neut % (Auto) 93.8 H Lymph % (Auto) 2.5 L [place] % (Auto) 2.8 Eos % (Auto) 0.0 Baso % (Auto) 0.1 Neut # (Auto) 11.2 H Lymph # (Auto) 0.3 L [place] # (Auto) 0.3 L Eos # (Auto) 0.0 Baso # (Auto) 0.0 Immature Gran # (Auto) 0.1 Puncture Site [employer] Excess 17.5 H O2 Saturation 93.6 L ABG pH 7.36 ABG pCO2 76.0 H ABG pO2 72.0 L ABG HCO3 42.9 H ABG Total CO2 45.2 H [place] Test Pos VBG pH 7.34 VBG pCO2 80 H VBG pO2 50 H VBG HCO3 43.2 H VBG O2 Saturation 82.6 H Hemoglobin 1.0 Oxyhemoglobin 92.8 L Carboxyhemoglobin 2.1 H Total Hemoglobin 12.7 O2 Delivery Device Cannula Oxygen Liter Flow 4.00 Sodium 137.8 Potassium 4.67 Chloride 97.1 L Carbon Dioxide 37.4 H Anion Gap 7.97 BUN 24.9 H Creatinine 0.65 Estimated GFR (MDRD) 90.00 BUN/Creatinine Ratio 38.30 Glucose 150.9 H Calcium 9.32 Total Bilirubin 0.47 AST 23.1 ALT 22.8 Alkaline Phosphatase 91.0 Total Protein 6.50 Albumin 3.48 L Globulin 3.02 Albumin/Globulin Ratio 1.15 Additional Comments Additional Comments: I have independently reviewed and interpreted the labs/EKGs/imaging ordered during this hospital stay. I have reviewed outside records that are available in our EMR that pertain to medical stay including imaging/notes/labs from previous visits. Active Medications Active Medications: Medications Generic Name Dose Route Start Last Admin Trade Name Freq PRN Reason Stop Dose Admin Acetaminophen 650 mg 02/25/24 14:47 02/26/24 08:24 Acetaminophen 325 Mg Tablet PO 650 mg Q4H PRN Administration Mild Pain Hydrocodone Bitart/Acetaminophen 1 tab 02/25/24 15:24 Hydrocodone Bit/Acetaminophen 5/325 Mg Tablet PO Q6H PRN MODERATE PAIN Albuterol Sulfate 2 puff 02/25/24 15:24 Albuterol Sulfate 8 Gm Inhaler IH Q6H PRN Wheezing Albuterol/Ipratropium 3 ml 02/25/24 18:00 02/27/24 10:02 Ipratropium/Albuterol Vial.Neb NEB 3 ml RTQ4H NNAMDI Administration Alprazolam 1 mg 02/25/24 15:24 02/27/24 06:17 Alprazolam 0.5 Mg Tablet PO 1 mg BID PRN Administration Anxiety Aspirin 81 mg 02/25/24 15:30 02/27/24 08:16 Aspirin 81 Mg Tablet. PO 81 mg DAILYWM2 NNAMDI Administration Atorvastatin Calcium 10 mg 02/25/24 21:00 02/26/24 21:20 Atorvastatin Calcium 10 Mg Tablet PO 10 mg BEDTIME NNAMDI Administration Budesonide/Formoterol Fumarate 2 puff 02/25/24 21:00 02/27/24 08:17 Budesonide/Formoterol Fumarate 160/4.5 Mcg Inhaler IH 2 puff BID NNAMDI Administration Bupropion HCl 75 mg 02/25/24 15:30 02/27/24 08:16 Bupropion Hcl 75 Mg Tablet PO 75 mg BID NNAMDI Administration Diltiazem HCl 60 mg 02/25/24 15:30 02/27/24 08:17 Diltiazem Hcl 60 Mg Tablet PO 60 mg TID NNAMDI Administration Enoxaparin Sodium 40 mg 02/26/24 09:00 02/27/24 08:22 Enoxaparin Sodium 40 Mg/0.4 Ml Syr SUBCUT 40 mg DAILY NNAMDI Administration Ergocalciferol 50,000 unit 03/02/24 09:00 Ergocalciferol (Vitamin D2) 50,000 Unit Capsule PO WEEKLY NNAMDI Guaifenesin 600 mg 02/25/24 15:30 02/27/24 08:16 Guaifenesin 600 Mg Tablet.Er PO 600 mg BID NNAMDI Administration CEFTRIAXONE/D5W 1 GM PREMIX 1 gm in 50 mls @ 100 mls/hr 02/25/24 14:50 02/27/24 08:17 Rocephin 1 Gm/50 Ml D5w IV 02/28/24 14:49 100 mls/hr DAILY NNAMDI Administration Doxycycline Hyclate 100 mg/ 100 mls @ 50 mls/hr 02/25/24 15:00 02/27/24 09:15 Sodium Chloride IV 02/28/24 14:59 50 mls/hr Q12HR NNAMDI Administration Methylprednisolone Sodium Succinate 40 mg 02/25/24 21:00 02/27/24 05:10 Methylprednisolone Sod Succ/Pf 40 Mg/Ml Vial IVP 40 mg Q8HR NNAMDI Administration Metoprolol Tartrate 25 mg 02/25/24 15:30 02/27/24 08:16 Metoprolol Tartrate 25 Mg Tablet PO 25 mg BID NNMADI Administration Naproxen 250 mg 02/25/24 15:50 Naproxen 250 Mg Tablet PO Q12H PRN MODERATE PAIN Ondansetron HCl 4 mg 02/25/24 14:47 Ondansetron Hcl/Pf 4 Mg/2 Ml Sdv IVP Q6H PRN Nausea / Vomiting Pantoprazole Sodium 40 mg 02/25/24 16:00 02/27/24 05:16 Pantoprazole Sodium 40 Mg Tablet.Dr PO 40 mg QDAC2 NNAMDI Administration Sodium Chloride 1 syr 02/25/24 21:00 02/27/24 05:10 0.9% Sodium Chloride 10 Ml Disp.Syrin IVF 1 syr Q8HR NNAMDI Administration Trazodone HCl 50 mg 02/25/24 21:00 02/26/24 21:20 Trazodone Hcl 50 Mg Tablet PO 50 mg BEDTIME NNAMDI Administration Plan Plan: 1. Acute on Chronic Respiratory Failure in setting of COPD Exacerbation - ABG chronic, cont steroids, nebs, rocephin and doxy 2. COPD exacerbation - see above plan 3. Hypertension - chronic, continue home medications 4. Hyperlipidemia - chronic, continue home medications 5. GERD - chronic, continue home medications 6. Squamous cell carcinoma of left lung - in remission, following with Dr. Castellon and Dr. De Dios DVT: Lovenox Dispo: poss dc tomorrow Review Statement Review Statement: I have personally discussed and reviewed the patient's visit/currently labs/imaging/decision making with Dr. Whyte, my supervising attending. Greater that 50 minutes spent with patient, 50% of the time spent with this patient was devoted to counseling and coordination of care.
[2024-02-28 05:29] LABS: BASOPHILS % (AUTO) 0.1 % (0.0-3.0); HEMATOCRIT 45.6 % (37.0-47.0); HEMOGLOBIN 13.4 g/dl (12.0-16.0); IMMATURE GRANULOCYTE # (AUTO) 0.2 (0.0-1.0); IMMATURE GRANULOCYTE % (AUTO) 1.6 % (0.0-5.0); LYMPHOCYTES # (AUTO) 0.3 K/uL (0.60-3.4); LYMPHOCYTES % (AUTO) 2.4 (10.0-50.0); MEAN CORPUSCULAR HEMOGLOBIN 30.5 pg (27.0-31.0); MEAN CORPUSCULAR HGB CONC 29.4 (31.8-35.4); MEAN CORPUSCULAR VOLUME 103.9 fl (81.0-99.0); MONOCYTES # (AUTO) 0.6 K/uL (0.4-2.0); MONOCYTES % (AUTO) 4.2 (0-10); NEUTROPHILS # (AUTO) 12.5 K/ul (2.0-6.9); NEUTROPHILS % (AUTO) 91.7 % (42.2-75.2); PLATELET COUNT 332 10^3/uL (140-440); RDW COEFFICIENT OF VARIATION 12.1 % (11.6-14.8); RED BLOOD COUNT 4.39 10^6/ul (4.20-5.40); WHITE BLOOD COUNT 13.58 K/ul (4.6-10.2)
[2024-02-28 05:58] LABS: ALANINE AMINOTRANSFERASE 23.9 U/L (0-35); ALBUMIN 3.7 g/dL (3.5-5.0); ALKALINE PHOSPHATASE 118.3 U/L (53-141); ASPARTATE AMINO TRANSFERASE 22.9 U/L (14-36); BILIRUBIN,TOTAL 0.4 mg/dL (0.2-1.3); BLOOD UREA NITROGEN 32.8 mg/dL (7-17); CALCIUM 9.32 mg/dL (8.4-10.2); CARBON DIOXIDE 39.2 mmol/L (22-30.0); CHLORIDE 97.9 mmol/L (98-107); CREATININE 0.64 mg/dL (0.60-1.30); GLUCOSE 176.2 mg/dL (74-106); POTASSIUM 4.5 mmol/L (3.5-5.1); SODIUM 139.9 mmol/L (134.5-145); TOTAL PROTEIN 6.75 g/dL (6.3-8.2)
--- NOTE | 2024-02-28 10:23 | CT ---
EXAM: CHEST CTA WITH CONTRAST (PULMONARY ARTERY) HISTORY: Chest pain and shortness of breath. TECHNIQUE: CTA acquisition of the chest from the thoracic inlet to the upper abdomen following IV con trast administration timed to filling of the pulmonary artery. 3D/MIP/VR images were utilized. CT Dose Reduction Techniques Employed: Yes. COMPARISON: None. FINDINGS: Pulmonary Embolism: - Diagnostic quality: Adequate. - Central (Main/Lobar/Interlobar): No embolus. - Peripheral (Segmental/Subsegmental): No embolus. Lung Parenchyma and Airways: There are bilateral pleural effusions with passive atelectasis of the lo wer lobes. There is superimposed vascular congestion with emphysema. There is right middle lobe sub segmental atelectasis. No pneumothorax. Thoracic Inlet, Mediastinum, and Chasity: No mass. There are calcified mediastinal lymph nodes. Heart, Vessels, and Pericardium: No aortic anuerysm. The heart chambers are not enlarged. There is n o pericardial effusion or thickening. Multivessel coronary disease. Bones and Soft Tissues: There is no fracture or lytic lesion. Chest wall soft tissues are unremarkab le. Upper Abdomen: The visualized portions are normal. IMPRESSION: 1. No evidence of pulmonary artery embolism. 2. Bilateral pleural effusions with atelectasis in the lower lobes and right middle lobe. 3. Coronary disease. All CT scans are performed using dose optimization techniques as appropriate to the performed exam an d include at least one of the following: Automated exposure control, adjustment of the mA and/or kV according t o size, and the use of iterative reconstruction technique.
--- NOTE | 2024-02-28 10:33 | PCM.PROG ---
Date/Time Seen Date Seen by Provider: 02/28/24 Time Seen by Provider: 08:50 Provider Provider: [facility]OXANNA WILLS [facility]C, [facility] Chief Complaint Chief Complaint: COPD EXACERBATION Subjective Subjective: Patient doing better at rest but still having significant desaturations with ambulation. Patient states her breathing is not at baseline with exertion. Have been trying to turn her up to 6L with ambulation. CTA ordered today. Objective Appearance: Positive No Apparent Distress, Alert and Oriented x3 and Obese Chest/Lungs: Positive Symmetrical With Equal Breath Sounds and Wheezes (+improved) Heart: Positive RRR and Pulses Normal GI/: Positive Soft, Nontender, Bowel Sounds Normal and No Distention Neurological: Positive Cranial Nerves Intact, Alert and Oriented Vital Signs Vital Signs: Vital Signs: Last 24 Hours 02/27/24 13:00 02/27/24 14:00 02/27/24 14:00 Temperature 97.5 F L Temperature Source Temporal Artery Scan Pulse Rate 80 Pulse Rate [Dorsalis Pedis] Respiratory Rate 19 Blood Pressure 122/79 Blood Pressure Mean 93 Blood Pressure Location Right Radial Artery Blood Pressure Position Supine O2 Sat by Pulse Oximetry 91 L Oxygen Delivery Method Nasal Cannula Nasal Cannula Oxygen Flow Rate 4 4 Telemetry Type Remote Telemetry Telemetry Monitoring Continues Telemetry Heart Rate 78 Telemetry SPO2 91 L EKG MO Interval 0.19 EKG QRS Interval 0.11 H Telemetry Strip Reading SR with BBB 02/27/24 18:00 02/27/24 19:00 02/27/24 19:55 Temperature 97.5 F L Temperature Source Temporal Artery Scan Pulse Rate 89 Pulse Rate [Dorsalis Pedis] Respiratory Rate 20 Blood Pressure 133/90 Blood Pressure Mean 104 Blood Pressure Location Right Radial Artery Blood Pressure Position Sitting O2 Sat by Pulse Oximetry 93 L 93 L Oxygen Delivery Method Nasal Cannula Nasal Cannula Oxygen Flow Rate 4 4 Telemetry Type Remote Telemetry Telemetry Monitoring Continues Telemetry Heart Rate 90 Telemetry SPO2 92 L EKG MO Interval 0.12 EKG QRS Interval 0.08 Telemetry Strip Reading NSR 02/27/24 20:00 02/27/24 21:09 02/28/24 01:00 Temperature 97.7 F Temperature Source Temporal Artery Scan Pulse Rate 87 Pulse Rate [Dorsalis Pedis] Respiratory Rate 20 20 Blood Pressure 130/80 Blood Pressure Mean 96 Blood Pressure Location Right Arm Blood Pressure Position Supine O2 Sat by Pulse Oximetry 90 L Oxygen Delivery Method Nasal Cannula Nasal Cannula Oxygen Flow Rate 4 4 Telemetry Type Remote Telemetry Telemetry Monitoring Continues Telemetry Heart Rate 78 Telemetry SPO2 94 EKG MO Interval 0.16 EKG QRS Interval 0.11 H Telemetry Strip [place] NSR 02/28/24 05:06 02/28/24 05:30 02/28/24 07:00 Temperature 97 F L Temperature Source Temporal Artery Scan Pulse Rate 78 Pulse Rate [Dorsalis Pedis] Respiratory Rate 20 Blood Pressure 122/70 Blood Pressure Mean 87 Blood Pressure Location Right Arm Blood Pressure Position Supine O2 Sat by Pulse Oximetry 95 93 L Oxygen Delivery Method Nasal Cannula Nasal Cannula Oxygen Flow Rate 4 4 Telemetry Type Remote Telemetry Telemetry Monitoring Continues Telemetry Heart Rate 68 Telemetry SPO2 94 EKG MO Interval 0.16 EKG QRS Interval 0.12 H Telemetry Strip [place] SR with BBB 02/28/24 08:00 02/28/24 10:00 Temperature 97.2 F L Temperature Source Temporal Artery Scan Pulse Rate 77 Pulse Rate [Dorsalis Pedis] 85 Respiratory Rate 19 16 Blood Pressure 129/80 Blood Pressure Mean 96 Blood Pressure Location Left Radial Artery Blood Pressure Position Supine O2 Sat by Pulse Oximetry 90 L Oxygen Delivery Method Nasal Cannula Nasal Cannula Oxygen Flow Rate 4 4 Telemetry Type Telemetry Monitoring Telemetry Heart Rate Telemetry SPO2 EKG MO Interval EKG QRS Interval Telemetry Strip Reading Lab Results Lab Results: Lab Results: Last 24 Hours 02/28/24 05:16 WBC 13.58 H RBC 4.39 Hgb 13.4 Hct 45.6 MCV 103.9 H MCH 30.5 MCHC 29.4 L RDW Coeff of Romain 12.1 Plt Count 332 Immature Gran % (Auto) 1.6 Neut % (Auto) 91.7 H Lymph % (Auto) 2.4 L [place] % (Auto) 4.2 Eos % (Auto) 0.0 Baso % (Auto) 0.1 Neut # (Auto) 12.5 H Lymph # (Auto) 0.3 L Love # (Auto) 0.6 Eos # (Auto) 0.0 Baso # (Auto) 0.0 Immature Gran # (Auto) 0.2 Sodium 139.9 Potassium 4.50 Chloride 97.9 L Carbon Dioxide 39.2 H Anion Gap 7.30 BUN 32.8 H Creatinine 0.64 Estimated GFR (MDRD) 91.00 BUN/Creatinine Ratio 51.25 Glucose 176.2 H Calcium 9.32 Total Bilirubin 0.40 AST 22.9 ALT 23.9 Alkaline Phosphatase 118.3 D Total Protein 6.75 Albumin 3.70 Globulin 3.05 Albumin/Globulin Ratio 1.21 Additional Comments Additional Comments: I have independently reviewed and interpreted the labs/EKGs/imaging ordered during this hospital stay. I have reviewed outside records that are available in our EMR that pertain to medical stay including imaging/notes/labs from previous visits. EXAM: CHEST CTA WITH CONTRAST (PULMONARY ARTERY) HISTORY: Chest pain and shortness of breath. TECHNIQUE: CTA acquisition of the chest from the thoracic inlet to the upper abdomen following IV contrast administration timed to filling of the pulmonary artery. 3D/MIP/VR images were utilized. CT Dose Reduction Techniques Employed: Yes. COMPARISON: None. FINDINGS: Pulmonary Embolism: - Diagnostic quality: Adequate. - Central (Main/Lobar/Interlobar): No embolus. - Peripheral (Segmental/Subsegmental): No embolus. Lung Parenchyma and Airways: There are bilateral pleural effusions with passive atelectasis of the lower lobes. There is superimposed vascular congestion with emphysema. There is right middle lobe subsegmental atelectasis. No pneumothorax. Thoracic Inlet, Mediastinum, and Chasity: No mass. There are calcified mediastinal lymph nodes. Heart, Vessels, and Pericardium: No aortic anuerysm. The heart chambers are not enlarged. There is no pericardial effusion or thickening. Multivessel coronary disease. Bones and Soft Tissues: There is no fracture or lytic lesion. Chest wall soft tissues are unremarkable. Upper Abdomen: The visualized portions are normal. IMPRESSION: 1. No evidence of pulmonary artery embolism. 2. Bilateral pleural effusions with atelectasis in the lower lobes and right middle lobe. 3. Coronary disease. Active Medications Active Medications: Medications Generic Name Dose Route Start Last Admin Trade Name Freq PRN Reason Stop Dose Admin Acetaminophen 650 mg 02/25/24 14:47 02/27/24 20:18 Acetaminophen 325 Mg Tablet PO 650 mg Q4H PRN Administration Mild Pain Hydrocodone Bitart/Acetaminophen 1 tab 02/25/24 15:24 Hydrocodone Bit/Acetaminophen 5/325 Mg Tablet PO Q6H PRN MODERATE PAIN Albuterol Sulfate 2 puff 02/25/24 15:24 Albuterol Sulfate 8 Gm Inhaler IH Q6H PRN Wheezing Albuterol/Ipratropium 3 ml 02/25/24 18:00 02/28/24 05:27 Ipratropium/Albuterol Vial.Neb NEB 3 ml RTQ4H NNAMDI Administration Alprazolam 1 mg 02/25/24 15:24 02/28/24 09:28 Alprazolam 0.5 Mg Tablet PO 1 mg BID PRN Administration Anxiety Aspirin 81 mg 02/25/24 15:30 02/28/24 09:20 Aspirin 81 Mg Tablet.Dr PO 81 mg DAILYWM2 NNAMDI Administration Atorvastatin Calcium 10 mg 02/25/24 21:00 02/27/24 20:16 Atorvastatin Calcium 10 Mg Tablet PO 10 mg BEDTIME NNAMDI Administration Budesonide/Formoterol Fumarate 2 puff 02/25/24 21:00 02/28/24 09:20 Budesonide/Formoterol Fumarate 160/4.5 Mcg Inhaler IH 2 puff BID NNAMDI Administration Bupropion HCl 75 mg 02/25/24 15:30 02/28/24 09:20 Bupropion Hcl 75 Mg Tablet PO 75 mg BID NNAMDI Administration Diltiazem HCl 60 mg 02/25/24 15:30 02/28/24 09:20 Diltiazem Hcl 60 Mg Tablet PO 60 mg TID NNAMDI Administration Enoxaparin Sodium 40 mg 02/26/24 09:00 02/28/24 09:21 Enoxaparin Sodium 40 Mg/0.4 Ml Syr SUBCUT 40 mg DAILY NNAMDI Administration Ergocalciferol 50,000 unit 03/02/24 09:00 Ergocalciferol (Vitamin D2) 50,000 Unit Capsule PO WEEKLY NNAMDI Furosemide 40 mg 02/28/24 10:30 Furosemide Inj 40 Mg/4 Ml Vial IVP 02/28/24 10:31 ONCE ONE Furosemide 20 mg 02/28/24 21:00 Furosemide Inj 20 Mg/2 Ml Vial IVP BID NNAMDI Guaifenesin 600 mg 02/25/24 15:30 02/28/24 09:20 Guaifenesin 600 Mg Tablet.Er PO 600 mg BID NNAMDI Administration CEFTRIAXONE/D5W 1 GM PREMIX 1 gm in 50 mls @ 100 mls/hr 02/25/24 14:50 02/27/24 08:17 Rocephin 1 Gm/50 Ml D5w IV 02/29/24 14:49 100 mls/hr DAILY NNAMDI Administration Doxycycline Hyclate 100 mg/ 100 mls @ 50 mls/hr 02/25/24 15:00 02/28/24 10:09 Sodium Chloride IV 02/29/24 14:59 50 mls/hr Q12HR NNAMDI Administration Methylprednisolone Sodium Succinate 40 mg 02/25/24 21:00 02/28/24 05:26 Methylprednisolone Sod Succ/Pf 40 Mg/Ml Vial IVP 40 mg Q8HR NNAMDI Administration Metoprolol Tartrate 25 mg 02/25/24 15:30 02/28/24 09:20 Metoprolol Tartrate 25 Mg Tablet PO 25 mg BID NNAMDI Administration Naproxen 250 mg 02/25/24 15:50 Naproxen 250 Mg Tablet PO Q12H PRN MODERATE PAIN Ondansetron HCl 4 mg 02/25/24 14:47 Ondansetron Hcl/Pf 4 Mg/2 Ml Sdv IVP Q6H PRN Nausea / Vomiting Pantoprazole Sodium 40 mg 02/25/24 16:00 02/28/24 05:09 Pantoprazole Sodium 40 Mg Tablet.Dr PO 40 mg QDAC2 NNAMDI Administration Sodium Chloride 1 syr 02/25/24 21:00 02/28/24 05:26 0.9% Sodium Chloride 10 Ml Disp.Syrin IVF 1 syr Q8HR NNAMDI Administration Trazodone HCl 50 mg 02/25/24 21:00 02/27/24 20:16 Trazodone Hcl 50 Mg Tablet PO 50 mg BEDTIME NNAMDI Administration Plan Plan: 1. Acute on Chronic Respiratory Failure in setting of COPD Exacerbation - ABG chronic, cont steroids, nebs, rocephin and doxy 2. COPD exacerbation - see above plan 3. Hypertension - chronic, continue home medications 4. Hyperlipidemia - chronic, continue home medications 5. GERD - chronic, continue home medications 6. Squamous cell carcinoma of left lung - in remission, following with Dr. Castellon and Dr. De Dios 7. Pleural effusions - Noted on CTA. No PE. BNP normal upon admission, could be due to her obesity. No recent echo, echo ordered for tomorrow. Will give lasix 40 x 1 now, then start 20 mg bid. I&Os. DVT: Lovenox Dispo: poss dc tomorrow after echo if breathing improved Review Statement Review Statement: I have personally discussed and reviewed the patient's visit/currently labs/imaging/decision making with Dr. Whyte, my supervising attending. Greater that 50 minutes spent with patient, 50% of the time spent with this patient was devoted to counseling and coordination of care.
[2024-02-28] MEDS: LASIX IVP ONE (11:05)
[2024-02-28] MEDS: LASIX IVP SCH (20:01)
[2024-02-29 05:25] LABS: BASOPHILS % (AUTO) 0.2 % (0.0-3.0); EOSINOPHILS % (AUTO) 0.1 % (0.0-7.0); HEMATOCRIT 41.5 % (37.0-47.0); HEMOGLOBIN 12.4 g/dl (12.0-16.0); IMMATURE GRANULOCYTE # (AUTO) 0.2 (0.0-1.0); IMMATURE GRANULOCYTE % (AUTO) 2.4 % (0.0-5.0); LYMPHOCYTES # (AUTO) 0.3 K/uL (0.60-3.4); LYMPHOCYTES % (AUTO) 3.4 (10.0-50.0); MEAN CORPUSCULAR HEMOGLOBIN 30.9 pg (27.0-31.0); MEAN CORPUSCULAR HGB CONC 29.9 (31.8-35.4); MEAN CORPUSCULAR VOLUME 103.5 fl (81.0-99.0); MONOCYTES # (AUTO) 0.4 K/uL (0.4-2.0); MONOCYTES % (AUTO) 3.7 (0-10); NEUTROPHILS % (AUTO) 90.2 % (42.2-75.2); PLATELET COUNT 281 10^3/uL (140-440); RED BLOOD COUNT 4.01 10^6/ul (4.20-5.40); WHITE BLOOD COUNT 9.95 K/ul (4.6-10.2)
[2024-02-29 05:45] LABS: BILIRUBIN,TOTAL 0.34 mg/dL (0.2-1.3)
[2024-02-29 06:09] LABS: CHLORIDE 93.9 mmol/L (98-107); POTASSIUM 4.36 mmol/L (3.5-5.1); SODIUM 138.3 mmol/L (134.5-145)
[2024-02-29 06:10] LABS: ALANINE AMINOTRANSFERASE 21.6 U/L (0-35); BLOOD UREA NITROGEN 33.6 mg/dL (7-17); CALCIUM 8.71 mg/dL (8.4-10.2); CARBON DIOXIDE 41.3 mmol/L (22-30.0); CREATININE 0.68 mg/dL (0.60-1.30); GLUCOSE 144.1 mg/dL (74-106); TOTAL PROTEIN 5.74 g/dL (6.3-8.2)
[2024-02-29 06:11] LABS: ALBUMIN 3.09 g/dL (3.5-5.0); ALKALINE PHOSPHATASE 82.3 U/L (53-141)
[2024-02-29 09:34] LABS: ABG O2 HGB 92.9 % (95-100); ABG PH 7.44 (7.35-7.45); BEecf 27.4 (-2.0-3.0); COHb 1.6 (0.5-1.5); HCO3 51.6 (21-28); MetHb 1.2 (0-1.5); TCO2 53.9 (19-24); sO2 94.4 % (94-98); tHb 13.7 g/dl (11.7-17.4)
[2024-02-29] MEDS: SALINE FLUSH (PORT ACCESS TRAY USE ONLY) IVF ONE (10:05)
--- NOTE | 2024-02-29 10:36 | PCM.PROG ---
Date/Time Seen Date Seen by Provider: 02/29/24 Time Seen by Provider: 09:00 Provider Provider: ARLEN FARNSWORTH, [facility] Chief Complaint Chief Complaint: COPD EXACERBATION Subjective Subjective: Patient reports she didn't sleep well last night. Very lethargic. Confused. Nursing staff reports she was tied up in her oxygen tubing at the end of the bed at one point. ABG obtained following rounds and CO2 up to 76%. RT concerned to place on BIPAP due to pleural effusions. Discussed settings of 10/28 with FIO2 of 40%. Hopeful short-term use of BIPAP with repeat ABG at 11. Objective Appearance: Positive No Apparent Distress and Obese Chest/Lungs: Positive Symmetrical With Equal Breath Sounds and Clear to Auscultation Bilaterally (diminished) Heart: Positive RRR and Pulses Normal GI/: Positive Soft, Nontender, Bowel Sounds Normal and No Distention Musculoskeletal: Positive Not Examined Neurological: Positive Sensation Intact, Motor intact, Alert and Disorinted Additional Findings: 2-3+ pitting edema BLE Vital Signs Vital Signs: Vital Signs: Last 24 Hours 02/28/24 13:00 02/28/24 14:00 02/28/24 14:00 Temperature 97 F L Temperature Source Temporal Artery Scan Pulse Rate 82 Respiratory Rate 18 Blood Pressure 137/84 Blood Pressure Mean 101 Blood Pressure Location Left Radial Artery Blood Pressure Position Supine O2 Sat by Pulse Oximetry 91 L 92 L Oxygen Delivery Method Nasal Cannula Nasal Cannula Oxygen Flow Rate 4 4 Fraction of Inspired Oxygen (FIO2) Weight Telemetry Type Remote Telemetry Telemetry Monitoring Continues Telemetry Heart Rate 80 Telemetry SPO2 95 EKG IA Interval 0.18 EKG QRS Interval 0.10 Telemetry Strip Reading 02/28/24 18:00 02/28/24 19:00 02/28/24 19:40 Temperature 97.4 F L Temperature Source Temporal Artery Scan Pulse Rate 89 Respiratory Rate 17 Blood Pressure 115/75 Blood Pressure Mean 88 Blood Pressure Location Left Radial Artery Blood Pressure Position Sitting O2 Sat by Pulse Oximetry 92 L Oxygen Delivery Method Nasal Cannula Nasal Cannula Oxygen Flow Rate 4 4 Fraction of Inspired Oxygen (FIO2) Weight Telemetry Type Remote Telemetry Telemetry Monitoring Continues Telemetry Heart Rate 89 Telemetry SPO2 93 EKG IA Interval 0.14 EKG QRS Interval 0.12 H Telemetry Strip Reading SR with BBB 02/28/24 19:55 02/28/24 21:03 02/29/24 01:00 Temperature 97.4 F L Temperature Source Temporal Artery Scan Pulse Rate 96 Respiratory Rate 20 Blood Pressure 140/84 Blood Pressure Mean 102 Blood Pressure Location Right Arm Blood Pressure Position Sitting O2 Sat by Pulse Oximetry 90 L Oxygen Delivery Method Nasal Cannula Nasal Cannula Oxygen Flow Rate 4 4 Fraction of Inspired Oxygen (FIO2) Weight Telemetry Type Remote Telemetry Telemetry Monitoring Continues Telemetry Heart Rate 81 Telemetry SPO2 EKG IA Interval 0.14 EKG QRS Interval 0.12 H Telemetry Strip Reading SR with BBB 02/29/24 05:03 02/29/24 05:08 02/29/24 05:08 Temperature 96.7 F L Temperature Source Temporal Artery Scan Pulse Rate 83 Respiratory Rate 20 Blood Pressure 128/71 Blood Pressure Mean 90 Blood Pressure Location Right Arm Blood Pressure Position Supine O2 Sat by Pulse Oximetry 93 L 98 Oxygen Delivery Method Nasal Cannula Nebulizer Treatment Oxygen Flow Rate 4 4 Fraction of Inspired Oxygen (FIO2) Weight 272 lb 12.8 oz Telemetry Type Telemetry Monitoring Telemetry Heart Rate Telemetry SPO2 EKG IA Interval EKG QRS Interval Telemetry Strip [place] 02/29/24 07:00 02/29/24 07:53 02/29/24 10:00 Temperature 97.1 F L Temperature Source Temporal Artery Scan Pulse Rate 86 Respiratory Rate 18 Blood Pressure 157/98 H Blood Pressure Mean 117 Blood Pressure Location Right Arm Blood Pressure Position Sitting O2 Sat by Pulse Oximetry 96 92 L Oxygen Delivery Method Nasal Cannula Bi-pap Oxygen Flow Rate 4 Fraction of Inspired Oxygen (FIO2) 40 Weight Telemetry Type Remote Telemetry Telemetry Monitoring Continues Telemetry Heart Rate 79 Telemetry SPO2 92 L EKG IA Interval 0.14 EKG QRS Interval 0.15 H Telemetry Strip [place] SR with BBB 02/29/24 10:02 02/29/24 10:15 Temperature 96.2 F L Temperature Source Temporal Artery Scan Pulse Rate 72 Respiratory Rate 16 Blood Pressure 113/65 Blood Pressure Mean 81 Blood Pressure Location Left Arm Blood Pressure Position Sitting O2 Sat by Pulse Oximetry 93 L 92 L Oxygen Delivery Method Nasal Cannula Oxygen Flow Rate 4 Fraction of Inspired Oxygen (FIO2) 40 Weight Telemetry Type Telemetry Monitoring Telemetry Heart Rate Telemetry SPO2 EKG IA Interval EKG QRS Interval Telemetry Strip Reading Lab Results Lab Results: Lab Results: Last 24 Hours 02/29/24 02/29/24 02/29/24 09:30 06:00 05:04 WBC 9.95 RBC 4.01 L Hgb 12.4 Hct 41.5 MCV 103.5 H MCH 30.9 MCHC 29.9 L RDW Coeff of Romain 12.0 Plt Count 281 Immature Gran % (Auto) 2.4 Neut % (Auto) 90.2 H Lymph % (Auto) 3.4 L [place] % (Auto) 3.7 Eos % (Auto) 0.1 Baso % (Auto) 0.2 Neut # (Auto) 9.0 H Lymph # (Auto) 0.3 L [place] # (Auto) 0.4 Eos # (Auto) 0.0 Baso # (Auto) 0.0 Immature Gran # (Auto) 0.2 Puncture Site [employer] Excess 27.4 H O2 Saturation 94.4 ABG pH 7.44 ABG pCO2 76.0 H ABG pO2 70.0 L ABG HCO3 51.6 H ABG Total CO2 53.9 H [place] Test Pos Hemoglobin 1.2 Oxyhemoglobin 92.9 L Carboxyhemoglobin 1.6 H Total Hemoglobin 13.7 O2 Delivery Device Cannula Oxygen Liter Flow 4.00 Sodium 138.3 Potassium 4.36 Chloride 93.9 L Carbon Dioxide 41.3 H* Anion Gap 7.46 BUN 33.6 H Creatinine 0.68 Estimated GFR (MDRD) 85.00 BUN/Creatinine Ratio 49.41 Glucose 144.1 H Calcium 8.71 Total Bilirubin 0.34 AST 20.0 ALT 21.6 Alkaline Phosphatase 82.3 D Total Protein 5.74 L Albumin 3.09 L Globulin 2.65 Albumin/Globulin Ratio 1.16 Additional Comments Additional Comments: I have independently reviewed and interpreted the labs/EKGs/imaging ordered during this hospital stay. I have reviewed outside records that are available in our EMR that pertain to medical stay including imaging/notes/labs from previous visits. Active Medications Active Medications: Medications Generic Name Dose Route Start Last Admin Trade Name Freq PRN Reason Stop Dose Admin Acetaminophen 650 mg 02/25/24 14:47 02/27/24 20:18 Acetaminophen 325 Mg Tablet PO 650 mg Q4H PRN Administration Mild Pain Hydrocodone Bitart/Acetaminophen 1 tab 02/25/24 15:24 Hydrocodone Bit/Acetaminophen 5/325 Mg Tablet PO Q6H PRN MODERATE PAIN Albuterol Sulfate 2 puff 02/25/24 15:24 Albuterol Sulfate 8 Gm Inhaler IH Q6H PRN Wheezing Albuterol/Ipratropium 3 ml 02/25/24 18:00 02/29/24 05:01 Ipratropium/Albuterol Vial.Neb NEB 3 ml RTQ4H NNAMDI Administration Alprazolam 1 mg 02/25/24 15:24 02/29/24 00:28 Alprazolam 0.5 Mg Tablet PO 1 mg BID PRN Administration Anxiety Aspirin 81 mg 02/25/24 15:30 02/29/24 08:16 Aspirin 81 Mg Tablet.Dr PO 81 mg DAILYWM2 NNAMDI Administration Atorvastatin Calcium 10 mg 02/25/24 21:00 02/28/24 21:08 Atorvastatin Calcium 10 Mg Tablet PO 10 mg BEDTIME NNAMDI Administration Budesonide/Formoterol Fumarate 2 puff 02/25/24 21:00 02/29/24 08:15 Budesonide/Formoterol Fumarate 160/4.5 Mcg Inhaler IH 2 puff BID NNAMDI Administration Bupropion HCl 75 mg 02/25/24 15:30 02/29/24 08:16 Bupropion Hcl 75 Mg Tablet PO 75 mg BID NNAMDI Administration Diltiazem HCl 60 mg 02/25/24 15:30 02/29/24 08:15 Diltiazem Hcl 60 Mg Tablet PO 60 mg TID NNAMDI Administration Enoxaparin Sodium 40 mg 02/26/24 09:00 02/29/24 08:16 Enoxaparin Sodium 40 Mg/0.4 Ml Syr SUBCUT 40 mg DAILY NNAMDI Administration Ergocalciferol 50,000 unit 03/02/24 09:00 Ergocalciferol (Vitamin D2) 50,000 Unit Capsule PO WEEKLY NNAMDI Furosemide 40 mg 02/29/24 21:00 Furosemide Inj 40 Mg/4 Ml Vial IVP BID NNAMDI Guaifenesin 600 mg 02/25/24 15:30 02/29/24 08:16 Guaifenesin 600 Mg Tablet.Er PO 600 mg BID NNAMDI Administration CEFTRIAXONE/D5W 1 GM PREMIX 1 gm in 50 mls @ 100 mls/hr 02/25/24 14:50 02/28/24 12:26 Rocephin 1 Gm/50 Ml D5w IV 02/29/24 14:49 100 mls/hr DAILY NNAMDI Administration Doxycycline Hyclate 100 mg/ 100 mls @ 50 mls/hr 02/25/24 15:00 02/29/24 08:45 Sodium Chloride IV 02/29/24 14:59 50 mls/hr Q12HR NNAMDI Administration Methylprednisolone Sodium Succinate 40 mg 02/25/24 21:00 02/29/24 05:17 Methylprednisolone Sod Succ/Pf 40 Mg/Ml Vial IVP 40 mg Q8HR NNAMDI Administration Metoprolol Tartrate 25 mg 02/25/24 15:30 02/29/24 08:16 Metoprolol Tartrate 25 Mg Tablet PO 25 mg BID NNAMDI Administration Naproxen 250 mg 02/25/24 15:50 Naproxen 250 Mg Tablet PO Q12H PRN MODERATE PAIN Ondansetron HCl 4 mg 02/25/24 14:47 Ondansetron Hcl/Pf 4 Mg/2 Ml Sdv IVP Q6H PRN Nausea / Vomiting Pantoprazole Sodium 40 mg 02/25/24 16:00 02/29/24 05:07 Pantoprazole Sodium 40 Mg Tablet.Dr PO 40 mg QDAC2 NNAMDI Administration Sodium Chloride 1 syr 02/25/24 21:00 02/29/24 05:16 0.9% Sodium Chloride 10 Ml Disp.Syrin IVF 1 syr Q8HR NNAMDI Administration Trazodone HCl 50 mg 02/25/24 21:00 02/28/24 21:08 Trazodone Hcl 50 Mg Tablet PO 50 mg BEDTIME NNAMDI Administration Plan Plan: 1. Acute on Chronic Respiratory Failure in setting of COPD Exacerbation - ABG showing CO2 76 this am, cont steroids, nebs, rocephin and doxy - stopping after 5 days 2. COPD exacerbation - see above plan 3. Hypertension - chronic, continue home medications 4. Hyperlipidemia - chronic, continue home medications 5. GERD - chronic, continue home medications 6. Squamous cell carcinoma of left lung - in remission, following with Dr. Castellon and Dr. De Dios 7. Pleural effusions - Noted on CTA. No PE. BNP normal upon admission, could be due to her obesity. No recent echo, echo ordered for today, started lasix yesterday, 40 mg BID, I&Os. DVT: Lovenox Dispo: Likely needs BIPAP at bedtime, will trial tonight and contact pulmonary tomorrow Review Statement Review Statement: I have personally discussed and reviewed the patient's visit/currently labs/imaging/decision making with Dr. Whyte, my supervising attending. Greater that 50 minutes spent with patient, 50% of the time spent with this patient was devoted to counseling and coordination of care.
[2024-02-29] MEDS: LASIX IVP ONE (11:08)
[2024-02-29 11:32] LABS: ABG O2 HGB 93.6 % (95-100); ABG PH 7.45 (7.35-7.45); BEecf 27.4 (-2.0-3.0); COHb 2.3 (0.5-1.5); HCO3 51.4 (21-28); MetHb 1.1 (0-1.5); TCO2 53.7 (19-24); sO2 95.5 % (94-98); tHb 14.3 g/dl (11.7-17.4)
[2024-02-29] MEDS: ATIVAN IVP ONE (11:57)
--- NOTE | 2024-02-29 12:27 | ECHO2D ---
Date of Exam: 02/29/2024 Ordering Physician: HOSPITALIST-AYDIN/ PCP-DR. YOO Room #: 112 Reason for Echo: HYPOXIA, PLEURAL EFFUSIONS, COPD M-Mode Normal Adult Results LV Dimensions Normal Adult Results AoV Opening excursions >1.6 1.5 LVEDD-base- 3.5-5.8 5.2 Ao root dimensions 2.0-3.7 3.6 LVESD-base- 3.1-4.6 L. Atrium dimensions 1.9-3.8 5.2 Post. Wall thickness 0.8-1.1 1.2 IV septum (thickness) 0.7-1.2 1.3 Post. Wall excursion 0.72-1.3 NORMAL Septal motion NORMAL Systolic motion R. Ventricular cavity 1.5-2.0 4.0 LVEF 60% >60% Paradoxical septal wall motion NORMAL 2-D : CALCIFIC MITRAL VALVE ANNULUS AND AORTIC VALVES--NO STENOSIS, VALVES--NORMAL, NORMAL LEFT VENTRICLE SIZE AND LEFT VENTRICLE CONTRACTILITY--NO THROMBUS, OR PERICARDIAL EFFUSION--ENLARGED LEFT ATRIAL, RIGHT VENTRICLE AND RIGHT ATRIAL CAVITIES COLOR FLOW DOPPLER: SPECTRAL FLOW THROUGH MITRAL VALVE A WAVE >E WAVE M-MODE: MV: CALCIFIC MITRAL VALVE ANNULUS-MILD AV: MILDLY CALCIFIC AORTIC VALVE LEAFLETS TV: NORMAL PV: CHAMBER SIZE: ENLARGED RIGHT ATRIAL, RIGHT VENTRICLE AND LEFT ATRIAL CAVITIES WALL MOTION: NORMAL PERICARDIUM: NORMAL INTERPRETATION: 1. LEFT VENTRICLE HYPERTROPHY WITH ENLARGED LEFT ATRIAL CAVITIES 2. ENLARGED RIGHT VENTRICLE AND RIGHT ATRIAL CAVITIES 3. NORMAL LEFT VENTRICLE SIZE AND LEFT VENTRICLE CONTRACTILITY 4. 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 EVIDENCE OF DIASTOLIC DYSFUNCTION OF LEFT VENTRICLE DIFFICULT STUDY --BODY HABITUS MTDD
[2024-02-29 15:44] LABS: ABG O2 HGB 90.8 % (95-100); ABG PH 7.43 (7.35-7.45); BEecf 30.1 (-2.0-3.0); HCO3 54.4 (21-28); MetHb 1.1 (0-1.5); TCO2 56.9 (19-24); tHb 13.2 g/dl (11.7-17.4)
[2024-02-29 17:07] LABS: ABG O2 HGB 93.2 % (95-100); ABG PH 7.47 (7.35-7.45); BEecf 28.7 (-2.0-3.0); COHb 1.8 (0.5-1.5); HCO3 52.4 (21-28); TCO2 54.6 (19-24); sO2 94.8 % (94-98); tHb 13.9 g/dl (11.7-17.4)
[2024-02-29] MEDS: LASIX IVP SCH (20:43)
[2024-02-29] MEDS ORDERED: LASIX IVP SCH (21:00)
[2024-02-29] MEDS: NYSTOP POWDER TP ONE (21:31)
[2024-03-01 05:16] LABS: BASOPHILS % (AUTO) 0.3 % (0.0-3.0); EOSINOPHILS % (AUTO) 0.1 % (0.0-7.0); HEMATOCRIT 48.1 % (37.0-47.0); HEMOGLOBIN 14.3 g/dl (12.0-16.0); IMMATURE GRANULOCYTE # (AUTO) 0.2 (0.0-1.0); LYMPHOCYTES # (AUTO) 0.3 K/uL (0.60-3.4); LYMPHOCYTES % (AUTO) 3.1 (10.0-50.0); MEAN CORPUSCULAR HEMOGLOBIN 30.3 pg (27.0-31.0); MEAN CORPUSCULAR HGB CONC 29.7 (31.8-35.4); MEAN CORPUSCULAR VOLUME 101.9 fl (81.0-99.0); MONOCYTES # (AUTO) 0.3 K/uL (0.4-2.0); MONOCYTES % (AUTO) 2.8 (0-10); NEUTROPHILS # (AUTO) 9.4 K/ul (2.0-6.9); NEUTROPHILS % (AUTO) 91.7 % (42.2-75.2); PLATELET COUNT 315 10^3/uL (140-440); RED BLOOD COUNT 4.72 10^6/ul (4.20-5.40); WHITE BLOOD COUNT 10.27 K/ul (4.6-10.2)
[2024-03-01 05:34] LABS: ALANINE AMINOTRANSFERASE 36.5 U/L (0-35); ALBUMIN 3.29 g/dL (3.5-5.0); ALKALINE PHOSPHATASE 90.4 U/L (53-141); ASPARTATE AMINO TRANSFERASE 34.6 U/L (14-36); BILIRUBIN,TOTAL 0.51 mg/dL (0.2-1.3); BLOOD UREA NITROGEN 44.1 mg/dL (7-17); CALCIUM 8.44 mg/dL (8.4-10.2); CHLORIDE 88.7 mmol/L (98-107); CREATININE 0.77 mg/dL (0.60-1.30); GLUCOSE 153.7 mg/dL (74-106); POTASSIUM 3.92 mmol/L (3.5-5.1); SODIUM 139.4 mmol/L (134.5-145); TOTAL PROTEIN 6.17 g/dL (6.3-8.2)
[2024-03-01 05:53] LABS: CARBON DIOXIDE 44.1 mmol/L (22-30.0)
[2024-03-01 06:16] LABS: ABG O2 HGB 90.9 % (95-100); ABG PH 7.39 (7.35-7.45); BEecf 30.7 (-2.0-3.0); COHb 2.4 (0.5-1.5); HCO3 55.7 (21-28); MetHb 0.8 (0-1.5); TCO2 58.5 (19-24); sO2 92.5 % (94-98)
[2024-03-01] MEDS: ATIVAN PO PRN (09:16)
[2024-03-01 11:57] LABS: ABG PH 7.49 (7.35-7.45); BEecf 30.8 (-2.0-3.0); COHb 1.9 (0.5-1.5); HCO3 54.1 (21-28); TCO2 56.3 (19-24); sO2 94.9 % (94-98); tHb 13.7 g/dl (11.7-17.4)
--- NOTE | 2024-03-01 12:12 | PCM.PROG ---
Date/Time Seen Date Seen by Provider: 03/01/24 Time Seen by Provider: 08:15 Provider Provider: ARLEN FARNSWORTH, [facility] Chief Complaint Chief Complaint: COPD EXACERBATION Subjective Subjective: Wore BIPAP yesterday afternoon for 1.5 hours to get CO2 down. Dropped by 10 points or so. Patient was agreeable to wear BIPAP for sleep at that time. At bedtime, she would only wear for 10 minutes and refused for the rest of the night. PCO2 this am was 92. Patient concerned with going home "in this state". Discussed with patient and daughter extensively the risks of going home in this state and initially refused and mentioned hospice care. Determined this was not the route she wished to go at this time and became agreeable to wear the mask with something to calm her nerves. Normally takes Xanax 1 mg BID prn at home but feels this has not worked well for her at all. Gave a dose of ativan IVP yesterday that was effective per patient. Discussed we will trial PO instead of the xanax today. Objective Appearance: Positive No Apparent Distress, Alert and Oriented x3 and Obese Chest/Lungs: Positive Symmetrical With Equal Breath Sounds, Clear to Auscultation Bilaterally and Good Air Movement all 4 Lung Castro Heart: Positive RRR and Pulses Normal GI/: Positive Soft, Nontender, Bowel Sounds Normal and No Distention Musculoskeletal: Positive Not Examined Neurological: Positive Sensation Intact, Motor intact, Alert and Oriented Vital Signs Vital Signs: Vital Signs: Last 24 Hours 02/29/24 13:00 02/29/24 13:33 02/29/24 14:00 Temperature 97.1 F L Temperature Source Temporal Artery Scan Pulse Rate 91 Pulse Rate [Apical] Respiratory Rate 18 Blood Pressure 141/97 H Blood Pressure Mean 111 Blood Pressure Location Left Arm Blood Pressure Position Sitting O2 Sat by Pulse Oximetry 89 L 94 L Oxygen Delivery Method Nasal Cannula Oxygen Flow Rate 4 Fraction of Inspired Oxygen (FIO2) 40 Weight Telemetry Type Remote Telemetry Telemetry Monitoring Continues Telemetry Heart Rate 85 Telemetry SPO2 90 L EKG [place] Interval 0.18 EKG QRS Interval 0.14 H Telemetry Strip Reading ns with BBB 02/29/24 14:14 02/29/24 14:14 02/29/24 15:53 Temperature Temperature Source Pulse Rate Pulse Rate [Apical] Respiratory Rate Blood Pressure Blood Pressure Mean Blood Pressure Location Blood Pressure Position O2 Sat by Pulse Oximetry 94 L 94 L 92 L Oxygen Delivery Method Bi-pap Oxygen Flow Rate Fraction of Inspired Oxygen (FIO2) 40 40 Weight Telemetry Type Telemetry Monitoring Telemetry Heart Rate Telemetry SPO2 EKG W[place] Interval EKG QRS Interval Telemetry Strip Reading 02/29/24 17:17 02/29/24 18:00 02/29/24 19:00 Temperature 98.0 F Temperature Source Temporal Artery Scan Pulse Rate 100 Pulse Rate [Apical] Respiratory Rate 18 Blood Pressure 113/82 Blood Pressure Mean 92 Blood Pressure Location Right Radial Artery Blood Pressure Position Sitting O2 Sat by Pulse Oximetry 89 L Oxygen Delivery Method Nasal Cannula Oxygen Flow Rate 4 Fraction of Inspired Oxygen (FIO2) 40 Weight Telemetry Type Remote Telemetry Telemetry Monitoring Continues Telemetry Heart Rate 94 Telemetry SPO2 90 L EKG W[place] Interval 0.18 EKG QRS Interval 0.88 H Telemetry Strip Reading SR 02/29/24 19:52 02/29/24 20:00 02/29/24 20:16 Temperature 98.2 F Temperature Source Temporal Artery Scan Pulse Rate 95 Pulse Rate [Apical] Respiratory Rate 20 Blood Pressure 111/75 Blood Pressure Mean 87 Blood Pressure Location Left Arm Blood Pressure Position Supine O2 Sat by Pulse Oximetry 91 L 91 L Oxygen Delivery Method Nasal Cannula Nasal Cannula Nasal Cannula Oxygen Flow Rate 4 4 4 Fraction of Inspired Oxygen (FIO2) Weight Telemetry Type Telemetry Monitoring Telemetry Heart Rate Telemetry SPO2 EKG W[place] Interval EKG QRS Interval Telemetry Strip Reading 02/29/24 23:10 03/01/24 01:00 03/01/24 01:42 Temperature Temperature Source Pulse Rate Pulse Rate [Apical] Respiratory Rate Blood Pressure Blood Pressure Mean Blood Pressure Location Blood Pressure Position O2 Sat by Pulse Oximetry 94 L 91 L Oxygen Delivery Method Oxygen Flow Rate 4 Fraction of Inspired Oxygen (FIO2) 40 Weight Telemetry Type Remote Telemetry Telemetry Monitoring Continues Telemetry Heart Rate 78 Telemetry SPO2 91 L EKG WY Interval 0.17 EKG QRS Interval 0.10 Telemetry Strip Reading SR 03/01/24 02:00 03/01/24 05:11 03/01/24 05:11 Temperature Temperature Source Pulse Rate 82 Pulse Rate [Apical] Respiratory Rate Blood Pressure Blood Pressure Mean Blood Pressure Location Blood Pressure Position O2 Sat by Pulse Oximetry 92 L 92 L 92 L Oxygen Delivery Method Nasal Cannula Nasal Cannula Oxygen Flow Rate 4 4 4 Fraction of Inspired Oxygen (FIO2) Weight Telemetry Type Telemetry Monitoring Telemetry Heart Rate Telemetry SPO2 EKG W[place] Interval EKG QRS Interval Telemetry Strip Reading 03/01/24 05:26 03/01/24 05:33 03/01/24 07:00 Temperature 97.2 F L Temperature Source Temporal Artery Scan Pulse Rate 81 Pulse Rate [Apical] Respiratory Rate 20 Blood Pressure 140/82 Blood Pressure Mean 101 Blood Pressure Location Blood Pressure Position O2 Sat by Pulse Oximetry 90 L Oxygen Delivery Method Nasal Cannula Oxygen Flow Rate 4 Fraction of Inspired Oxygen (FIO2) Weight 272 lb 6 oz Telemetry Type Remote Telemetry Telemetry Monitoring Continues Telemetry Heart Rate 80 Telemetry SPO2 91 L EKG WY Interval 0.14 EKG QRS Interval 0.08 Telemetry Strip Reading SR 03/01/24 08:00 03/01/24 09:40 03/01/24 09:49 Temperature Temperature Source Pulse Rate Pulse Rate [Apical] 90 Respiratory Rate 20 Blood Pressure Blood Pressure Mean Blood Pressure Location Blood Pressure Position O2 Sat by Pulse Oximetry 92 L 93 L Oxygen Delivery Method Nasal Cannula Bi-pap Oxygen Flow Rate 4 Fraction of Inspired Oxygen (FIO2) 40 40 Weight Telemetry Type Telemetry Monitoring Telemetry Heart Rate Telemetry SPO2 EKG W[place] Interval EKG QRS Interval Telemetry Strip Reading 03/01/24 10:00 03/01/24 12:08 Temperature 97.7 F Temperature Source Temporal Artery Scan Pulse Rate 82 Pulse Rate [Apical] Respiratory Rate 14 Blood Pressure 112/77 Blood Pressure Mean 88 Blood Pressure Location Right Arm Blood Pressure Position Sitting O2 Sat by Pulse Oximetry 94 L Oxygen Delivery Method Bi-pap Oxygen Flow Rate 14 Fraction of Inspired Oxygen (FIO2) 40 40 Weight Telemetry Type Telemetry Monitoring Telemetry Heart Rate Telemetry SPO2 EKG W[place] Interval EKG QRS Interval Telemetry Strip Reading Lab Results Lab Results: Lab Results: Last 24 Hours 03/01/24 03/01/24 03/01/24 11:52 06:07 05:10 WBC 10.27 H RBC 4.72 Hgb 14.3 Hct 48.1 H D MCV 101.9 H MCH 30.3 MCHC 29.7 L RDW Coeff of Romain 12.0 Plt Count 315 Immature Gran % (Auto) 2.0 Neut % (Auto) 91.7 H Lymph % (Auto) 3.1 L Collier % (Auto) 2.8 Eos % (Auto) 0.1 Baso % (Auto) 0.3 Neut # (Auto) 9.4 H Lymph # (Auto) 0.3 L Collier # (Auto) 0.3 L Eos # (Auto) 0.0 Baso # (Auto) 0.0 Immature Gran # (Auto) 0.2 Puncture Site Rrad R rad Base Excess 30.8 H 30.7 H O2 Saturation 94.9 92.5 L ABG pH 7.49 H 7.39 ABG pCO2 71.0 H 92.0 H ABG pO2 69.0 L 66.0 L ABG HCO3 54.1 H 55.7 H ABG Total CO2 56.3 H 58.5 H Wenceslao Test Pos Pos Hemoglobin 1.0 0.8 Oxyhemoglobin 93.0 L 90.9 L Carboxyhemoglobin 1.9 H 2.4 H Total Hemoglobin 13.7 14.0 O2 Delivery Device Bipap Oxygen Liter Flow 4.00 FiO2 % 40.0 Sodium 139.4 Potassium 3.92 Chloride 88.7 L Carbon Dioxide 44.1 H* Anion Gap 10.52 BUN 44.1 H Creatinine 0.77 Estimated GFR (MDRD) 74.00 BUN/Creatinine Ratio 57.27 Glucose 153.7 H Calcium 8.44 Total Bilirubin 0.51 AST 34.6 ALT 36.5 H Alkaline Phosphatase 90.4 Total Protein 6.17 L Albumin 3.29 L Globulin 2.88 Albumin/Globulin Ratio 1.14 02/29/24 02/29/24 16:50 15:30 WBC RBC Hgb Hct MCV MCH MCHC RDW Coeff of Romain Plt Count Immature Gran % (Auto) Neut % (Auto) Lymph % (Auto) Collier % (Auto) Eos % (Auto) Baso % (Auto) Neut # (Auto) Lymph # (Auto) Collier # (Auto) Eos # (Auto) Baso # (Auto) Immature Gran # (Auto) Puncture Site Rrad Lrad Base Excess 28.7 H 30.1 H O2 Saturation 94.8 92.0 L ABG pH 7.47 H 7.43 ABG pCO2 72.0 H 82.0 H ABG pO2 70.0 L 62.0 L ABG HCO3 52.4 H 54.4 H ABG Total CO2 54.6 H 56.9 H Wenceslao Test + Pos Hemoglobin 1.0 1.1 Oxyhemoglobin 93.2 L 90.8 L Carboxyhemoglobin 1.8 H 2.0 H Total Hemoglobin 13.9 13.2 O2 Delivery Device Bipap Bipap Oxygen Liter Flow FiO2 % 40.0 40.0 Sodium Potassium Chloride Carbon Dioxide Anion Gap BUN Creatinine Estimated GFR (MDRD) BUN/Creatinine Ratio Glucose Calcium Total Bilirubin AST ALT Alkaline Phosphatase Total Protein Albumin Globulin Albumin/Globulin Ratio Additional Comments Additional Comments: I have independently reviewed and interpreted the labs/EKGs/imaging ordered dur ing this hospital stay. I have reviewed outside records that are available in our EMR that pertain to medical stay including imaging/notes/labs from previous visits. Active Medications Active Medications: Medications Generic Name Dose Route Start Last Admin Trade Name Freq PRN Reason Stop Dose Admin Acetaminophen 650 mg 02/25/24 14:47 02/27/24 20:18 Acetaminophen 325 Mg Tablet PO 650 mg Q4H PRN Administration Mild Pain Hydrocodone Bitart/Acetaminophen 1 tab 02/25/24 15:24 Hydrocodone Bit/Acetaminophen 5/325 Mg Tablet PO Q6H PRN MODERATE PAIN Albuterol Sulfate 2 puff 02/25/24 15:24 Albuterol Sulfate 8 Gm Inhaler IH Q6H PRN Wheezing Albuterol/Ipratropium 3 ml 02/25/24 18:00 03/01/24 10:28 Ipratropium/Albuterol Vial.Neb NEB 3 ml RTQ4H NNAMDI Administration Aspirin 81 mg 02/25/24 15:30 03/01/24 09:15 Aspirin 81 Mg Tablet. PO 81 mg DAILYWM2 NNAMDI Administration Atorvastatin Calcium 10 mg 02/25/24 21:00 02/29/24 20:42 Atorvastatin Calcium 10 Mg Tablet PO 10 mg BEDTIME NNAMDI Administration Budesonide/Formoterol Fumarate 2 puff 02/25/24 21:00 03/01/24 09:29 Budesonide/Formoterol Fumarate 160/4.5 Mcg Inhaler IH 2 puff BID NNAMDI Administration Bupropion HCl 75 mg 02/25/24 15:30 03/01/24 09:14 Bupropion Hcl 75 Mg Tablet PO 75 mg BID NNAMDI Administration Diltiazem HCl 60 mg 02/25/24 15:30 03/01/24 09:15 Diltiazem Hcl 60 Mg Tablet PO 60 mg TID NNAMDI Administration Enoxaparin Sodium 40 mg 02/26/24 09:00 03/01/24 09:16 Enoxaparin Sodium 40 Mg/0.4 Ml Syr SUBCUT 40 mg DAILY NNAMDI Administration Ergocalciferol 50,000 unit 03/02/24 09:00 Ergocalciferol (Vitamin D2) 50,000 Unit Capsule PO WEEKLY NNAMDI Furosemide 20 mg 03/02/24 09:00 Furosemide 20 Mg Tablet PO QDAC2 NNAMDI Guaifenesin 600 mg 02/25/24 15:30 03/01/24 09:16 Guaifenesin 600 Mg Tablet.Er PO 600 mg BID NNAMDI Administration Lorazepam 0.5 mg 03/01/24 08:55 03/01/24 09:16 Lorazepam 0.5 Mg Tablet PO 0.5 mg TID PRN Administration Anxiety Methylprednisolone Sodium Succinate 40 mg 02/25/24 21:00 03/01/24 05:34 Methylprednisolone Sod Succ/Pf 40 Mg/Ml Vial IVP 40 mg Q8HR NNAMDI Administration Metoprolol Tartrate 25 mg 02/25/24 15:30 03/01/24 09:15 Metoprolol Tartrate 25 Mg Tablet PO 25 mg BID NNAMDI Administration Naproxen 250 mg 02/25/24 15:50 Naproxen 250 Mg Tablet PO Q12H PRN MODERATE PAIN Ondansetron HCl 4 mg 02/25/24 14:47 Ondansetron Hcl/Pf 4 Mg/2 Ml Sdv IVP Q6H PRN Nausea / Vomiting Pantoprazole Sodium 40 mg 02/25/24 16:00 03/01/24 05:34 Pantoprazole Sodium 40 Mg Tablet. PO 40 mg QDAC2 NNAMDI Administration Sodium Chloride 1 syr 02/25/24 21:00 03/01/24 05:34 0.9% Sodium Chloride 10 Ml Disp.Syrin IVF 1 syr Q8HR NNAMDI Administration Trazodone HCl 50 mg 02/25/24 21:00 02/29/24 20:43 Trazodone Hcl 50 Mg Tablet PO 50 mg BEDTIME NNAMDI Administration Plan Plan: 1. Acute on Chronic Respiratory Failure in setting of COPD Exacerbation - ABG showing CO2 92 this am after not wearing bipap last night, see below comment in dispo for further information: cont steroids, nebs, rocephin and doxy - stopped today, ativan 0.5 TID prn for anxiety 2. COPD exacerbation - see above plan 3. Hypertension - chronic, continue home medications 4. Hyperlipidemia - chronic, continue home medications 5. GERD - chronic, continue home medications 6. Squamous cell carcinoma of left lung - in remission, following with Dr. Castellon and Dr. De Dios 7. Pleural effusions - Noted on CTA. No PE. BNP normal upon admission, could be due to her obesity. echo normal EF noted diastolic dysfunction, diuresed well over 48 hour period, transition to PO lasix today, I&Os. DVT: Lovenox Dispo: Attempt to trial BIPAP at bedtime last night failed, had lengthy discussion with patient and daughter yesterday as well as today risks vs benefits of BIPAP. Discussed patient's PCO2 levels were very high this am due to not wearing the BIPAP/patient refused. Patient eventually agreeable to wear to get level down to baseline. Wore until noon and level down in low 70s now, baseline upper 60s. Otis (her oxygen provider) will be coming to speak with patient tomorrow regarding bipap/kam and demonstrate use at home. Agreeable to wear BIPAP during naps and at bedtime at this time. Plan to d/c tomorrow. Review Statement Review Statement: I have personally discussed and reviewed the patient's visit/currently labs/imaging/decision making with Dr. Whyte, my supervising attending. Greater that 50 minutes spent with patient, 50% of the time spent with this pa tient was devoted to counseling and coordination of care.
[2024-03-01] MEDS ORDERED: ZESTRIL PO SCH (17:30)
[2024-03-01] MEDS: SOLU-MEDROL 40 MG IVP SCH (17:39)
[2024-03-02] MEDS: ATIVAN PO ONE (01:34)
[2024-03-02 05:00] LABS: BASOPHILS % (AUTO) 0.3 % (0.0-3.0); HEMATOCRIT 44.8 % (37.0-47.0); HEMOGLOBIN 13.4 g/dl (12.0-16.0); IMMATURE GRANULOCYTE # (AUTO) 0.2 (0.0-1.0); LYMPHOCYTES # (AUTO) 0.3 K/uL (0.60-3.4); LYMPHOCYTES % (AUTO) 2.7 (10.0-50.0); MEAN CORPUSCULAR HEMOGLOBIN 30.5 pg (27.0-31.0); MEAN CORPUSCULAR HGB CONC 29.9 (31.8-35.4); MEAN CORPUSCULAR VOLUME 101.8 fl (81.0-99.0); MONOCYTES # (AUTO) 0.5 K/uL (0.4-2.0); MONOCYTES % (AUTO) 4.5 (0-10); NEUTROPHILS # (AUTO) 9.4 K/ul (2.0-6.9); NEUTROPHILS % (AUTO) 90.5 % (42.2-75.2); PLATELET COUNT 276 10^3/uL (140-440); RDW COEFFICIENT OF VARIATION 12.1 % (11.6-14.8); WHITE BLOOD COUNT 10.38 K/ul (4.6-10.2)
[2024-03-02 05:12] LABS: ALANINE AMINOTRANSFERASE 32.9 U/L (0-35); ALBUMIN 2.96 g/dL (3.5-5.0); ALKALINE PHOSPHATASE 86.5 U/L (53-141); ASPARTATE AMINO TRANSFERASE 25.7 U/L (14-36); BILIRUBIN,TOTAL 0.51 mg/dL (0.2-1.3); BLOOD UREA NITROGEN 43.9 mg/dL (7-17); CALCIUM 8.42 mg/dL (8.4-10.2); CREATININE 0.69 mg/dL (0.60-1.30); GLUCOSE 138.7 mg/dL (74-106); POTASSIUM 4.06 mmol/L (3.5-5.1); SODIUM 136.7 mmol/L (134.5-145); TOTAL PROTEIN 5.41 g/dL (6.3-8.2)
[2024-03-02 05:21] LABS: CARBON DIOXIDE 47.4 mmol/L (22-30.0)
--- NOTE | 2024-03-02 08:40 | DCSUM ---
Admission Date Admission Date: 02/25/24 Discharge Date Discharge Date: 03/02/24 Admission Diagnosis Admission Diagnosis: 1. Acute on Chronic Respiratory Failure in setting of COPD Exacerbation 2. COPD exacerbation 3. Hypertension 4. Hyperlipidemia 5. GERD 6. Squamous cell carcinoma of left lung Discharge Diagnosis Discharge Diagnosis: 1. Acute on Chronic Respiratory Failure in setting of COPD Exacerbation - Resolved 2. COPD exacerbation - Resolved 3. Hypertension - Chronic, Stable 4. Hyperlipidemia - Chronic, Stable 5. GERD - Chronic, stable 6. Squamous cell carcinoma of left lung - Chronic, stable 7. Pleural effusions - Stable 8. Diastolic HF with pEF - Stable Hospital Provider Hospital Provider: ARLEN FARNSWORTH, [facility] Primary Care Physician Primary Care Physician: LUL YOO Summary of History and Physical Summary of History and Physical: Patient is a 73 year old female from home with pmhx of COPD with chronic respiratory failure on 4L, hyperlipidemia, GERD, anxiety, history of squamous cell carcinoma of left lung who presents to ER with worsening SOB over the last few days. She states she actually felt worse yesterday. Has a cough. Was noted to be in the 80s on her baseline 4L in the ER. She was placed on bipap due to her work of breathing at 12/, then changed to 16/6. CXR negative, labs overall unremarkable. She was given solumedrol 125 and ativan. Will admit to med surg. ROS limited as patient is on bipap while evaluating Hospital Course Subjective: Treated for COPD exacerbation with 5 day course of rocephin and doxy, steroids, and nebs. Wheezing improved. Dyspnea on exertion persistent until 02/28. 02/25 She was able to be weaned off of the bipap and did not require more than home O2. Continued treatment due to sat dropping into 80s on exertion. 02/27 Continued to desat on exertion in 80s. Chest ct obtained and showed new pleural effusions. No previous hx of heart failure. Started on lasix 40 BID. I&O, daily weights 02/28 Upon rounds, patient was lethargic and confused. ABG obtained and showed CO2 at 76. Baseline around 65. Placed on bipap and wore for short period of time, had lunch, and BIPAP was not put back on until around 1500. Wore for 1.5 hours and improved. Discussed extensively with patient and daughter the need for BIPAP at bedtime due to retaining of CO2. Patient was agreeable at that time. Wore bipap for 10 minutes at bedtime and would not put back on thereafter. Echo completed and showed diastolic dysfunction with normal EF. Continued lasix. 03/01 ABG showed CO2 92. Attempt to trial BIPAP at bedtime last night failed, had lengthy discussion with patient and daughter yesterday as well as today risks vs benefits of BIPAP. Discussed patient's PCO2 levels were very high this am due to not wearing the BIPAP/patient refused. Patient eventually agreeable to wear to get level down to baseline. Wore until noon and level down in low 70s now, baseline upper 60s. Otis (her oxygen provider) will be coming to speak with patient tomorrow regarding bipap/kam and demonstrate use at home. Agreeable to wear BIPAP during naps and at bedtime at this time. Switched anxiety medication from xanax to ativan and patient feels this is working better for her. Plan to d/c josefina devi. Diuresed well over 48 hour period, transition to PO lasix today, I&Os. 03/02 Wore bipap 5.5 hours last night. States that she does not tolerate wearing the mask well due to feelings of suffocation. Bipap considered and ruled out due to the severity of the patient requiring a device that will not fail during a power outage, provide portability to use in and out of the home and prevent readmissions, therefor NIV is required. Reports ativan helped some. Discussed taking 0.5 mg as needed for anxiety during the day and 1 mg at night for sleep. D/c home with lasix and ativan rx. Appearance: Pleasant, No Apparent Distress and Alert HEENT: MMM, Supple and No JVD CVS: No Murmur, No Rubs and No Gallop Abdomen: Soft, Non-Tender and No Distention Respiratory: No Dyspnea Extremities: No Calf Tenderness Vital Signs: Most Recent Vital Signs Temperature 97 F L 03/02/24 05:07 Temperature Source Temporal Artery Scan 03/02/24 05:07 Temperature Source Infrared 02/25/24 11:53 Pulse Rate 80 03/02/24 05:07 Respiratory Rate 22 H 03/02/24 05:07 Blood Pressure 122/80 03/02/24 05:07 Blood Pressure Mean 94 03/02/24 05:07 Blood Pressure Left Arm 124/84 02/25/24 15:07 Blood Pressure Location Right Arm 03/02/24 05:07 Blood Pressure Position Supine 03/02/24 05:07 O2 Sat by Pulse Oximetry 92 L 03/02/24 05:15 Oxygen Delivery Method Nasal Cannula 03/02/24 05:15 Oxygen Flow Rate 4 03/02/24 05:15 Fraction of Inspired Oxygen (FIO2) 40 03/02/24 01:55 Height 5 ft 5 in 03/01/24 12:21 Weight 272 lb 11.2 oz 03/02/24 05:11 Telemetry Type Remote Telemetry 03/02/24 07:00 Telemetry Monitoring Continues 03/02/24 07:00 Irregular Telemetry Rate (Approximate) 70-80 BPM 03/02/24 07:00 Telemetry Heart Rate 75 03/02/24 07:00 Telemetry SPO2 89 L 03/02/24 07:00 EKG CA Interval 0.14 03/02/24 07:00 EKG QRS Interval 0.10 03/02/24 07:00 Telemetry Strip Reading NSR 03/02/24 07:00 Imaging: EXAM: CHEST RADIOGRAPH FINDINGS: The heart, mediastinum, and left chest port are unchanged. The lungs and pleural spaces are stable with bilateral mid to lower lung zone pulmonary opacification. No pneumothorax. No acute abnormality of the bones or soft tissues is identified. IMPRESSION: Stable exam with the bilateral mid to lower lung zone pulmonary disease. EXAM: CHEST CTA WITH CONTRAST (PULMONARY ARTERY) FINDINGS: Pulmonary Embolism: - Diagnostic quality: Adequate. - Central (Main/Lobar/Interlobar): No embolus. - Peripheral (Segmental/Subsegmental): No embolus. Lung Parenchyma and Airways: There are bilateral pleural effusions with passive atelectasis of the lower lobes. There is superimposed vascular congestion with emphysema. There is right middle lobe subsegmental atelectasis. No pneumothorax. Thoracic Inlet, Mediastinum, and Chasity: No mass. There are calcified mediastinal lymph nodes. Heart, Vessels, and Pericardium: No aortic anuerysm. The heart chambers are not enlarged. There is no pericardial effusion or thickening. Multivessel coronary disease. Bones and Soft Tissues: There is no fracture or lytic lesion. Chest wall soft tissues are unremarkable. Upper Abdomen: The visualized portions are normal. IMPRESSION: 1. No evidence of pulmonary artery embolism. 2. Bilateral pleural effusions with atelectasis in the lower lobes and right middle lobe. 3. Coronary disease. Lab Results Last 24 Hours: 03/02/24 03/01/24 04:54 11:52 WBC 10.38 H RBC 4.40 Hgb 13.4 Hct 44.8 MCV 101.8 H MCH 30.5 MCHC 29.9 L RDW Coeff of Romain 12.1 Plt Count 276 Immature Gran % (Auto) 2.0 Neut % (Auto) 90.5 H Lymph % (Auto) 2.7 L [place] % (Auto) 4.5 Eos % (Auto) 0.0 Baso % (Auto) 0.3 Neut # (Auto) 9.4 H Lymph # (Auto) 0.3 L [place] # (Auto) 0.5 Eos # (Auto) 0.0 Baso # (Auto) 0.0 Immature Gran # (Auto) 0.2 Puncture Site [employer] Excess 30.8 H O2 Saturation 94.9 ABG pH 7.49 H ABG pCO2 71.0 H ABG pO2 69.0 L ABG HCO3 54.1 H ABG Total CO2 56.3 H [place] Test Pos Hemoglobin 1.0 Oxyhemoglobin 93.0 L Carboxyhemoglobin 1.9 H Total Hemoglobin 13.7 O2 Delivery Device Bipap FiO2 % 40.0 Sodium 136.7 Potassium 4.06 Chloride 90.0 L Carbon Dioxide 47.4 H* Anion Gap 3.36 BUN 43.9 H Creatinine 0.69 Estimated GFR (MDRD) 84.00 BUN/Creatinine Ratio 63.62 Glucose 138.7 H Calcium 8.42 Total Bilirubin 0.51 AST 25.7 ALT 32.9 Alkaline Phosphatase 86.5 Total Protein 5.41 L Albumin 2.96 L Globulin 2.45 Albumin/Globulin Ratio 1.20 Discharge Instructions Discharge Planning: Discharge Planning > 40 minutes If patient is discharged with left ventricular systolic dysfunction: No Discharged with a beta feliberto? [] If no, why not? [] Discharged with an carisa/arb? [] If no, why not? [] DIAGNOSIS: COPD EXACERBATION, DIASTOLIC HF WITH PEF DIET: REGULAR ACTIVITY: TOLERATED FOLLOW-UP WITH PCP NEXT WEEK MEDICATIONS: LASIX 20 MG DAILY, ATIVAN 0.5 MG BID NEEDED, 1 MG AT BEDTIME WEAR NONINVASIVE VENTILATOR AT BEDTIME DIRECTED, 4L OXYGEN DURING THE DAY Discharge Medications: Medications at Discharge (Home Meds & RX) albuterol sulfate 90 mcg/actuation aerosol inhaler (ProAir HFA) 2 puff inhalation Q6H PRN Bronchospasm 11/08/13 aspirin 81 mg tablet,delayed release 81 mg PO DAILYWM 11/08/13 atorvastatin 10 mg tablet (Lipitor) 10 mg PO DAILY 11/08/13 bupropion HCl 75 mg tablet 75 mg PO BID 11/08/13 diltiazem HCl 60 mg tablet 60 mg PO TID 11/08/13 guaifenesin 600 mg tablet, extended release 12 hr (Mucinex) 600 mg PO BID 11/08/13 naproxen sodium 220 mg tablet (Aleve) 220 mg PO Q12H PRN pain 05/19/15 ergocalciferol (vitamin D2) 1,250 mcg (50,000 unit) capsule (Vitamin D2) 50,000 unit PO WEEKLY 03/29/18 ipratropium 0.5 mg-albuterol 3 mg (2.5 mg base)/3 mL nebulization soln 1 vial NEB RTQ6H 03/29/18 trazodone 50 mg tablet 50 mg PO BEDTIME 03/29/18 hydrocodone 5 mg-acetaminophen 325 mg tablet 1 tab PO Q6H PRN Analgesia 03/07/21 esomeprazole magnesium 40 mg capsule,delayed release (Nexium) 40 mg PO DAILY 01/05/24 fluticasone 250 mcg-salmeterol 50 mcg/dose blistr powdr for inhalation 1 inh inhalation BID 01/05/24 metoprolol tartrate 25 mg tablet 25 mg PO BID 01/05/24 alprazolam 0.5 mg tablet 1 mg (2 x 0.5 mg) PO BID PRN Anxiety #14 tabs 01/07/24 Discharge Plan Discharge Discharge Orders: Discharge Patient (ONCE); Ordered 03/02/24 Ordered By: AYDIN SOLORIO Activity Restrictions/Additional Instructions: Discharge home today DIAGNOSIS: COPD EXACERBATION DIET: REGULAR ACTIVITY: TOLERATED FOLLOW-UP WITH PRIMARY CARE PROVIDER NEXT WEEK MEDICATIONS: LASIX 20 MG DAILY, ATIVAN 0.5 MG 2 TIMES A DAY NEEDED, 1 MG AT BEDTIME STOP TAKING ALPRAZOLAM NOW NEW PRESCRIPTIONS SENT TO [facility] AND READY FOR PICKUP, TAKE ALL OTHER HOME MEDICATIONS DIRECTED 4L OXYGEN PER NASAL CANNULA DURING THE DAY WEAR NONINVASIVE VENTILATOR AT BEDTIME WITH 9L OXYGEN DISCUSSED WITH CARDIOPULMONARY Instructions: Furosemide (By mouth), Lorazepam (By mouth), COPD (Chronic Obstructive Pulmonary Disease) (GEN), Chronic Respiratory Failure (GEN) Care Plan Goals: Problem: Impaired Respiratory Status Goal: Exhibit optimal respiratory function Instructions: Activities as tolerated Apply oxygen as ordered Elevate head of bed Notify MD of increased congestion Problem: Risk for falls Goal: No falls or injury Instructions: Have no throw rugs on the floor Make sure pathway is clear of all objects Use assistance devices if applicable Patient Disposition: HOME WITH FAMILY CARE Prescriptions: New lorazepam [Ativan] 0.5 mg Tablet See Rx Instructions .ROUTE .COMPLEX PRN (Reason: anxiety) Qty: 30 0RF Rx Instructions: 0.5 mg orally as needed TWICE A DAY. 1 MG AT BEDTIME furosemide 20 mg Tablet 20 mg PO QDAC2 Qty: 30 0RF Continued atorvastatin [Lipitor] 10 MG tablet 10 mg PO DAILY aspirin 81 MG tablet,delayed release (DR/EC) 81 mg PO DAILYWM bupropion HCl 75 MG tablet 75 mg PO BID albuterol sulfate [ProAir HFA] 1 PUFF HFA aerosol inhaler 2 puff inhalation Q6H PRN (Reason: Bronchospasm) diltiazem HCl 60 MG tablet 60 mg PO TID guaifenesin [Mucinex] 600 MG tablet extended release 12hr 600 mg PO BID naproxen sodium [Aleve] 220 MG tablet 220 mg PO Q12H PRN (Reason: pain) hydrocodone-acetaminophen 5-325 mg Tablet 1 tab PO Q6H PRN (Reason: Analgesia) ipratropium-albuterol 1 VIAL solution for nebulization 1 vial NEB RTQ6H trazodone 50 MG tablet 50 mg PO BEDTIME ergocalciferol (vitamin D2) [Vitamin D2] 50,000 UNIT capsule 50,000 unit PO WEEKLY Rx Instructions: Takes on Wednesdays. metoprolol tartrate 25 mg tablet 25 mg PO BID fluticasone propion-salmeterol 250-50 mcg/dose blister with device 1 inh inhalation BID esomeprazole magnesium [Nexium] 40 mg capsule,delayed release(DR/EC) 40 mg PO DAILY Discontinued alprazolam 0.5 MG tablet 1 mg PO BID PRN (Reason: Anxiety) Qty: 14 0RF Did you review [place] [employer]OR for ALL controlled substances?: No Discussed opioids are addictive and Narcan is available by prescription or from pharmacy.: No Condition: Stable
[2024-03-02] MEDS: DRISDOL PO SCH (08:54)
[2024-03-02] MEDS: LASIX TAB PO SCH (08:56)
[2024-03-02 13:49] VITALS: RESP 20
[2024-03-02 17:33] VITALS: BP 117/75; PULSE 94; TEMP 97.8
== END 2024-03-02 18:05 | disposition home or self-care (01) | DRG 189 ==
LOC: ED 11:47 → MEDSURG B 14:36
PROVIDERS: ADMIT Hospitalist; ATTEND Nurse Practitioner Family
DX: E78.5 Hyperlipidemia, unspecified; Z99.81 Dependence on supplemental oxygen; F41.9 Anxiety disorder, unspecified; C34.92 Malignant neoplasm of unspecified part of left bronchus or lung; J96.20 Acute and chronic respiratory failure, unspecified whether with hypoxia or hypercapnia; Z87.891 Personal history of nicotine dependence; I11.0 Hypertensive heart disease with heart failure; J90 Pleural effusion, not elsewhere classified; J44.1 Chronic obstructive pulmonary disease with (acute) exacerbation; K21.9 Gastro-esophageal reflux disease without esophagitis; I50.30 Unspecified diastolic (congestive) heart failure